=== PATIENT | female | born 1950 | race Caucasian/White ===

== ENCOUNTER 2020-06-11 15:32 | Outpatient (CLI) | payer MEDICARE, SELFPAY ==
--- NOTE | ~2020-06-11 | XR_ITS ---
EXAMINATION: XR chest 2V DATE: 06/11/2020 15:50 INDICATION: Cough. TECHNIQUE: Frontal and lateral views of the chest were obtained. COMPARISON: Chest 2 views 08/30/2019, chest CT 04/07/2018 FINDINGS: There is mild scarring at the lung apices. There is mild scarring in right middle lobe and lingula. No pleural effusion or pneumothorax. The heart size is normal. IMPRESSION: 1. Mild scarring at the lung apices and in right middle lobe and lingula. Reviewed, dictated and finalized at location B.
[2020-06-11 15:46] LABS: Basophils Absolute Auto 0.09 K/mm3 (0.00-0.10); Eosinophils Absolute Auto 1.16 K/mm3 (0.02-0.50); Eosinophils Percent Auto 12.9 % (1.0-6.0); Hematocrit 39.9 % (35.0-42.0); Hemoglobin 13.1 g/dL (11.7-13.8); Immature Granulocyte Absolute 0.02 K/mm3 (0.00-0.00); Immature Granulocyte Percent A 0.2 % (0.0-0.0); Lymphocytes Absolute Auto 2.18 K/mm3 (1.10-4.50); Lymphocytes Percent Auto 24.2 % (18.0-42.0); Mean Corpuscular HGB Conc 32.8 g/dL (32.0-36.0); Mean Corpuscular Hemoglobin 31.4 pg (27.0-31.0); Mean Corpuscular Volume 95.7 fL (78.0-102.0); Mean Platelet Volume 10.7 fl (9.2-11.8); Monocytes Absolute Auto 0.67 K/mm3 (0.10-0.90); Monocytes Percent Auto 7.5 % (2.0-11.0); Neutrophils Absolute Auto 4.9 K/mm3 (1.7-7.2); Neutrophils Percent Auto 54.2 % (50.0-70.0); Platelet Count Result 231 K/mm3 (150-420); Red Blood Count 4.17 M/mm3 (4.20-5.40)
[2020-06-11 16:02] LABS: Anion Gap 9 mmol/L (8-16); Bilirubin,Total 0.3 mg/dL (0.00-1.00); Blood Urea Nitrogen 13 mg/dL (7-18); Calcium 9.2 mg/dL (8.5-10.1); Carbon Dioxide 26 mmol/L (21-32); Chloride 105 mmol/L (98-108); Estimated Glomerular Filt Rate 50; Glucose 83 mg/dL (70-99); Osmolality Calculated 289 mOsm/kg (285-295); Potassium 4.1 mmol/L (3.5-5.1); Sodium 140 mmol/L (136-145)
[2020-06-11 16:03] LABS: Alanine Aminotransferase 19 U/L (14-59); Albumin Level 3.6 g/dL (3.4-5.0); Alkaline Phosphatase 86 U/L (46-116); Aspartate Amino Transferase 23 U/L (15-37); Total Protein 7.5 g/dL (6.4-8.2)
== END 2020-06-11 15:33 | disposition home or self-care (01) ==
LOC: CHSLAB 15:34
PROVIDERS: PCP Internal Medicine; Visit Provider Internal Medicine
DX: R05 Cough (principal)
CPT/HCPCS: 36415; 71046; 80053; 85025

== ENCOUNTER 2020-08-06 12:45 | Outpatient (CLI) | payer MEDICARE, SELFPAY ==
--- NOTE | ~2020-08-06 | MM_ITS ---
EXAMINATION: MM screening krystle BI w keron HISTORY: Screening mammogram TECHNIQUE: Craniocaudal and mediolateral oblique 3-D tomosynthesis images were obtained and synthetic 2-D images were generated. CAD analysis was submitted and interpreted. COMPARISON: 06/05/2019, 05/30/2018, 05/11/2017 bilateral digital screening mammogram examinations BREAST PARENCHYMAL COMPOSITION: There are scattered areas of fibroglandular density. FINDINGS: There is no evidence of suspicious mass, calcification, or architectural distortion to sugg est malignancy in either breast. There has been no suspicious interval change. IMPRESSION: 1. No mammographic evidence of malignancy. 2. Recommend routine screening mammography in one year. BI-RADS Category 1: Negative Reviewed, dictated and finalized at location A.
== END 2020-08-06 12:46 | disposition home or self-care (01) ==
LOC: CHSIMG 12:47
PROVIDERS: PCP Internal Medicine; Visit Provider Internal Medicine
DX: Z12.31 Encounter for screening mammogram for malignant neoplasm of breast (principal)
CPT/HCPCS: 77063; 77067

== ENCOUNTER 2020-08-18 10:01 | Outpatient (CLI) | payer MEDICARE, SELFPAY ==
[2020-08-19 20:51] LABS: SARS-CoV-2 RNA PCR Negative
== END 2020-08-18 10:02 | disposition home or self-care (01) ==
LOC: CHSLAB 10:05
PROVIDERS: PCP Internal Medicine; Visit Provider Internal Medicine
DX: R05 Cough (principal); R06.2 Wheezing; R09.89 Other specified symptoms and signs involving the circulatory and respiratory systems; Z20.828 Contact with and (suspected) exposure to other viral communicable diseases
CPT/HCPCS: 87635; C9803; U0003

== ENCOUNTER 2020-08-26 08:07 | Outpatient (CLI) | payer MEDICARE, SELFPAY ==
--- NOTE | ~2020-08-26 | CT_ITS ---
EXAMINATION: CT chest w con DATE: 08/26/2020 09:07 INDICATION: Neoplasm of lung of uncertain behavior CHRONIC COUGH AND PNEUMONIA, CHECKING FOR NEOPLASM TECHNIQUE: Computed tomography (CT) of the chest was performed with 100 mL Omnipaque-350 intravenous contrast. Additional 3D reconstructions utilizing coronal maximum intensity projection (MIP) were per formed. Automated exposure control and iterative reconstruction technique were employed. The dose-rick gth product was 123.77 mGy-cm. COMPARISON: None FINDINGS: Mild diffuse bronchiectasis scattered mucous plugging. This most severe in the right lower lobe where there is complete filling of the right lower lobar bronchus distal to the takeoff of the superior se gmental bronchus which extends into all of the basilar segmental and some of the more peripheral subs egmental bronchi in the right lower lobe. There are multiple geographic regions of linear and nodular opacities associated with focally more severe bronchiectasis, some of which are new since the prior study and some of which were present on the prior study. There are also scattered regions of less sev ere tree-in-bud opacities. No pulmonary edema, pleural effusion or pneumothorax. Heart size is normal . No pericardial effusion. Ectatic ascending thoracic aorta measuring up to 3.6 cm in maximal diamete r. Persistent mild right hilar lymphadenopathy. The largest lymph node measuring 15 x 10 mm. Visualiz ed upper abdomen is unremarkable. Severe left-sided disc height loss with degenerative endplate hernandez es at L1-L2. Mild thoracic spondylosis. IMPRESSION: 1. Diffuse bilateral lung disease characterized by bronchiectasis and scattered geographic regions of new and chronic airspace opacities and tree-in-bud opacity most consistent with acute on chronic pne umonia. There is associated scattered mucous plugging most severe in the right lower lobe right lower lobar and basilar segmental and subsegmental bronchi which spares the superior segmental bronchus. C onsider bronchoscopy to exclude an obstructing endobronchial lesion. 2. Likely reactive right hilar lymphadenopathy. Reviewed, dictated and finalized at location A. ECTIVE THERAPIST IMPRESSION: 1. Diffuse bilateral lung disease characterized by bronchiectasis and scattered geographic regions of new and chronic airspace opacities and tree-in-bud opaci ty most consistent with acute on chronic pneumonia. There is associated scatter ed mucous plugging most severe in the right lower lobe right lower lobar and ba silar segmental and subsegmental bronchi which spares the superior segmental br onchus. Consider bronchoscopy to exclude an obstructing endobronchial lesion. 2. Likely reactive right hilar lymphadenopathy.
[2020-08-26 08:31] LABS: Estimated Glomerular Filt Rate 59
== END 2020-08-26 08:08 | disposition home or self-care (01) ==
LOC: CHSIMG 08:09
PROVIDERS: PCP Internal Medicine; Visit Provider Internal Medicine
DX: D38.1 Neoplasm of uncertain behavior of trachea, bronchus and lung (principal)
CPT/HCPCS: 36415; 71260; 82565; Q9965

== ENCOUNTER 2020-09-09 12:29 | Outpatient (CLI) | payer MEDICARE, SELFPAY ==
--- NOTE | ~2020-09-09 | XR_ITS ---
XR chest 2V 09/09/2020 13:07 Indication: Shortness of breath. Pneumonia. Procedure: 2 view chest Comparison: Comparison to multiple prior studies sequentially, with oldest reviewed study dated 05/2019. Findings: Chronic infiltrates of the mid and lower lung zones bilaterally. Heart size normal. No ariella a, pleural effusion or pneumothorax. The lungs are hyperinflated which is consistent with, but not di agnostic of chronic obstructive pulmonary disease. Impression: 1: Chronic infiltrates of the mid and lower lung zones bilaterally, suspicious for chronic atypical p neumonia versus fibrosis/scarring. Reviewed, dictated and finalized at location A. [employer]ING PROFESSIONALS Impression: 1: Chronic infiltrates of the mid and lower lung zones bilaterally, suspicious for chronic atypical pneumonia versus fibrosis/scarring.
== END 2020-09-09 12:30 | disposition home or self-care (01) ==
PROVIDERS: PCP Internal Medicine; Visit Provider Internal Medicine Pulmonary Disease
DX: J44.9 Chronic obstructive pulmonary disease, unspecified (principal)
CPT/HCPCS: 71046

== ENCOUNTER 2020-09-22 07:17 | Outpatient (CLI) | payer MEDICARE, SELFPAY ==
[2020-09-22 11:39] LABS: SARS-CoV-2 Ag Negative (Negative)
== END 2020-09-22 07:18 | disposition home or self-care (01) ==
LOC: CHSLAB 07:22
PROVIDERS: PCP Internal Medicine; Visit Provider Internal Medicine Pulmonary Disease
DX: Z20.828 Contact with and (suspected) exposure to other viral communicable diseases (principal); Z01.818 Encounter for other preprocedural examination
CPT/HCPCS: 87426

== ENCOUNTER 2020-10-13 12:28 | Outpatient (CLI) | payer MEDICARE, SELFPAY ==
[2020-10-16 06:37] LABS: NIL 0.01 IU/mL; Quantiferon TB Plus, 1T NEGATIVE
== END 2020-10-13 12:29 | disposition home or self-care (01) ==
LOC: CHSLAB 12:31
PROVIDERS: PCP Internal Medicine; Visit Provider Internal Medicine Pulmonary Disease
DX: R89.9 Unspecified abnormal finding in specimens from other organs, systems and tissues (principal)
CPT/HCPCS: 36415; 86480

== ENCOUNTER 2020-12-05 07:50 | Outpatient (CLI) | payer MEDICARE, SELFPAY ==
--- NOTE | ~2020-12-05 | US_ITS ---
US right upper quadrant INDICATION: Right upper quadrant pain PROCEDURE: Realtime right upper abdominal ultrasound. COMPARISON: No prior studies for comparison. FINDINGS: The pancreas is normal without focal mass or pancreatic ductal dilation. Liver echotexture is normal without focal mass or intrahepatic biliary dilatation. There is normal directional flow i n the portal vein. The gallbladder is normal without stones, gallbladder wall thickening or pericholecystic fluid. Comm on bile duct measures 5.5 mm. No sonographic Bustamante's sign. IMPRESSION: 1: Normal limited abdominal ultrasound. Reviewed, dictated and finalized at location A. 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
== END 2020-12-05 07:51 | disposition home or self-care (01) ==
LOC: CHSIMG 07:51
PROVIDERS: PCP Internal Medicine; Visit Provider Internal Medicine
DX: R10.11 Right upper quadrant pain (principal)
CPT/HCPCS: 76705

== ENCOUNTER 2021-03-09 12:45 | Outpatient (CLI) | payer MEDICARE, SELFPAY ==
--- NOTE | ~2021-03-09 | CT_ITS ---
EXAMINATION:CT diagnostic chest wo con DATE: 03/09/2021 13:33 INDICATION: Pulmonary nodule. TECHNIQUE: Computed tomography (CT) of the chest was performed without intravenous contrast. Automate d exposure control and iterative reconstruction technique were employed. The dose-length product (DLP ) was 128.42 mGy-cm. COMPARISON: Chest CT 08/26/2020, 04/07/2018 FINDINGS: There is symmetric scarring at the lung apices. There is bronchiectasis in the lungs with a lower lung predominance. There are centrilobular nodules and tree-in-bud opacities in clusters invol ving all lobes with a lower lung predominance. There are some airspace and groundglass opacities asso ciated with nodules. No pleural effusion. The heart size is normal. No pericardial effusion. There is chronic mild right hilar lymphadenopathy, likely reactive. There is mild thoracic spondylosis and se mignon lumbar spondylosis. IMPRESSION: 1. Diffuse lung disease with worsening in right upper lobe and improvement in right lower lobe, consi stent with chronic pneumonia such as mycobacterium avium intracellulare (PENNIE). 2. Chronic mild right hilar lymphadenopathy, likely reactive. Reviewed, dictated and finalized at location B. IMPRESSION: 1. Diffuse lung disease with worsening in right upper lobe and improvement in r ight lower lobe, consistent with chronic pneumonia such as mycobacterium avium intracellulare (PENNIE). 2. Chronic mild right hilar lymphadenopathy, likely reactive.
== END 2021-03-09 12:46 | disposition home or self-care (01) ==
LOC: CHSIMG 12:46
PROVIDERS: PCP Internal Medicine; Visit Provider Internal Medicine Pulmonary Disease
DX: R91.8 Other nonspecific abnormal finding of lung field (principal)
CPT/HCPCS: 71250

== ENCOUNTER 2021-07-08 12:18 | Outpatient (CLI) | payer MEDICARE, SELFPAY ==
--- NOTE | ~2021-07-08 | DEXA_ITS ---
Bone Density Report Name: Dawn Burgess Age: 70 Sex: Female Ethnicity: White Date of : 1950 Indication: osteopenia; height loss; asthma or emphysema; Referring Provider: Bella Swain Study: Bone densitometry was performed. Exam Date: July 08, 2021 Accession number: [id number] Bone Density: Region BMD T-score Z-score Classification AP Spine(L1-L4) 0.953 -0.9 1.4 Normal Femoral Neck (Left) 0.633 -1.9 0.0 Osteopenia Total Hip (Left) 0.660 -2.3 -0.7 Osteopenia Femoral Neck (Right) 0.594 -2.3 -0.4 Osteopenia Total Hip (Right) 0.686 -2.1 -0.5 Osteopenia Femoral Neck Mean 0.613 -2.1 -0.2 Osteopenia Total Hip Mean 0.673 -2.2 -0.6 Osteopenia World Health Organization criteria for BMD impression classify patients as: Normal (T-score at or above -1.0), Osteopenia (T-score between -1.0 and -2.5), or Osteoporosis (T-score at or below -2.5). 10-year Fracture Risk(1): Major Osteoporotic Fracture 12% Hip Fracture 3.2% Reported Risk Factors: [place] (), Neck BMD=0.594, BMI=20.2 (1) FRAX(R) Version 3.08. Fracture probability calculated for an untreated patient. Fracture probability may be lower if the patient has received treatment. Previous Exams: Region Exam Age BMD T-score BMD Change BMD Change Date g/cm2 vs Baseline vs Previous AP Spine (L1-L4) 07/08/2021 70 0.953 -0.9 -0.076 (-7.4%) -0.002 (-0.2%) 06/05/2019 68 0.955 -0.8 -0.074 (-7.2%) -0.009 (-1.0%) 09/28/2012 61 0.964 -0.8 -0.065 (-6.3%) -0.065 (-6.3%) 04/17/2010 59 1.029 -0.2 Total Hip(Left) 07/08/2021 70 0.660 -2.3 -0.105 (-13.8% -0.011 (-1.6%) 06/05/2019 68 0.670 -2.2 -0.095 (-12.4% -0.056 (-7.7%) 09/28/2012 61 0.726 -1.8 -0.039 (-5.1%) -0.039 (-5.1%) 04/17/2010 59 0.765 -1.4 Total Hip(Right) 07/08/2021 70 0.686 -2.1 -0.133 (-16.2% -0.010 (-1.5%) 06/05/2019 68 0.696 -2.0 -0.122 (-14.9% -0.097 (-12.2% 09/28/2012 61 0.793 -1.2 -0.025 (-3.1%) -0.025 (-3.1%) 04/17/2010 59 0.818 -1.0 *Denotes significance at 95% confidence level, LSC for AP Spine = 0.022 g/cm2, LSC for Total Hip = 0.027 g/cm2 # Denotes dissimilar scan types or analysis methods Clinical Information Provided by Patient: Has used the following medications: Vitamin D Has the following medical conditions: Asthma or Emphysema Patient maximum height was 65 No regular weight bearing exercise Does not regularly consume dairy products Drinks caffeinated beverages Onset of m
== END 2021-07-08 12:19 | disposition home or self-care (01) ==
LOC: CHSIMG 12:19
PROVIDERS: PCP Internal Medicine; Visit Provider Internal Medicine
DX: M81.0 Age-related osteoporosis without current pathological fracture (principal)
CPT/HCPCS: 77080

== ENCOUNTER 2021-08-07 12:49 | Outpatient (CLI) | payer MEDICARE, SELFPAY ==
--- NOTE | ~2021-08-07 | MM_ITS ---
EXAMINATION: MM screening krystle BI w keron HISTORY: Screening mammogram TECHNIQUE: Craniocaudal and mediolateral oblique 3-D tomosynthesis images were obtained and synthetic 2-D images were generated. CAD analysis was submitted and interpreted. COMPARISON: 08/06/2020, 06/05/2019, bilateral digital screening mammogram examinations BREAST PARENCHYMAL COMPOSITION: There are scattered areas of fibroglandular density. FINDINGS: There is no evidence of suspicious mass, calcification, or architectural distortion to sugg est malignancy in either breast. There has been no suspicious interval change. IMPRESSION: 1. No mammographic evidence of malignancy. 2. Recommend routine screening mammography in one year. BI-RADS Category 1: Negative Reviewed, dictated and finalized at location A.
== END 2021-08-07 12:50 | disposition home or self-care (01) ==
LOC: CHSIMG 12:50
PROVIDERS: PCP Internal Medicine; Visit Provider Internal Medicine
DX: Z12.31 Encounter for screening mammogram for malignant neoplasm of breast (principal)
CPT/HCPCS: 77063; 77067

== ENCOUNTER 2021-08-18 12:47 | Outpatient (CLI) | payer MEDICARE, SELFPAY ==
[2021-08-18] MEDS: ZOLEDRONIC ACID 5 MG/100 ML 100 ML 400 MG IVPB (13:05)
[2021-08-18 13:10] VITALS: BMI 19.4
[2021-08-18 13:11] VITALS: BP 129/67; PULSE 72; RESP 14; TEMP 36.6; O2SAT 98
--- NOTE | 2021-08-18 13:27 | PC.NURSE ---
Patient here for IV yearly Reclast infusion. Education given on medication. No concerns voices. Reclast IV infusion administered. SEE MAR Tolerated well. Safe exit of hospital.
== END 2021-08-18 12:48 | disposition home or self-care (01) ==
LOC: CHSTREATRM 12:49
PROVIDERS: PCP Internal Medicine; Visit Provider Internal Medicine
DX: M81.0 Age-related osteoporosis without current pathological fracture (principal)
CPT/HCPCS: 96365; J3489

== ENCOUNTER 2021-09-21 13:27 | Outpatient (CLI) | payer MEDICARE, SELFPAY ==
--- NOTE | ~2021-09-21 | CT_ITS ---
EXAMINATION: CT diagnostic chest wo con DATE: 09/21/2021 13:57 INDICATION: Abnormal finding of lung field hx chest nodules f/u, compare to CT chest 03/09/21 TECHNIQUE: Computed tomography (CT) of the chest was performed without intravenous contrast. Addition al 3D reconstructions utilizing coronal maximum intensity projection (MIP) were performed. Automated exposure control and iterative reconstruction technique were employed. The dose-length product was 12 9.75 mGy-cm. COMPARISON: 03/09/2021 FINDINGS: Symmetric moderate biapical pleural-parenchymal scarring. Unchanged diffuse mild bronchiectasis. Agai n seen are geographic regions of centrilobular nodules scattered throughout both lungs with lower alice g predominance. Some regions have improved most prominent on the right upper lobe and some have worse nila since the prior study study particularly in the right middle and lower lobes. Regions in the ling mary and left lower lobe are minimally changed. Heart size is normal. No pericardial effusion. Thoraci c aorta is normal in caliber. No pathologically enlarged thoracic lymphadenopathy. Calcified nodule i n the right hepatic lobe consistent with old granulomatous disease. Mild lumbar dextrocurvature with severe left-sided disc height loss at L1-L2. IMPRESSION: 1. Continued evolving pattern of patchy bilateral lung disease with bronchiectasis and regions of wor sening and improving tree-in-bud opacities consistent with chronic pneumonia such as Mycobacterium av ium intracellulare (PENNIE). Reviewed, dictated and finalized at location B. 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 Continued evolving pattern of patchy bilateral lung disease with bronchiecta sis and regions of worsening and improving tree-in-bud opacities consistent wit h chronic pneumonia such as Mycobacterium avium intracellulare (PENNIE).
== END 2021-09-21 13:28 | disposition home or self-care (01) ==
LOC: CHSIMG 13:28
PROVIDERS: PCP Internal Medicine; Visit Provider Internal Medicine Pulmonary Disease
DX: R91.8 Other nonspecific abnormal finding of lung field (principal)
CPT/HCPCS: 71250

== ENCOUNTER 2021-10-12 10:50 | Emergency (ER) | payer MEDICARE, SELFPAY ==
--- NOTE | ~2021-10-12 | US_ITS ---
EXAMINATION: US pelvic complete DATE: 10/12/2021 11:45 INDICATION: Vaginal bleeding TECHNIQUE: Multiple transabdominal and endovaginal sonographic images of the pelvis were obtained. COMPARISON: None. FINDINGS: The uterus measures 7.2 x 2.9 x 4.4 cm. The endometrial complex measures approximately 6 mm in thick ness exclusive of an additional 10 mm thick anechoic fluid collection within the uterine fundus. The right ovary is not visualized. The left ovary measures 2.2 x 0.8 x 0.6 cm. Lesser flow with arterial waveforms identified in the left ovary. There is no free fluid in the pelvis. IMPRESSION: 1. Mild thickening of the endometrial complex which measures approximately 6 mm along with small amou nt of anechoic fluid within the endometrial canal. Differential includes endometrial hyperplasia or c arcinoma. Consider hysteroscopy with biopsy for further evaluation. Reviewed, dictated and finalized at location H. 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 Mild thickening of the endometrial complex which measures approximately 6 mm along with small amount of anechoic fluid within the endometrial canal. Differ ential includes endometrial hyperplasia or carcinoma. Consider hysteroscopy wit h biopsy for further evaluation.
[2021-10-12 11:10] VITALS: BP 175/76; PULSE 78; RESP 16; TEMP 36.3; O2SAT 98
--- NOTE | 2021-10-12 11:23 | ED.GENADULT ---
HPI - General Adult General Chief complaint: Vaginal Bleeding Stated complaint: vaginal bleeding Source: patient Mode of arrival: ambulatory Limitations: no limitations History of Present Illness HPI narrative: Dawn is a 70F with a PMH of asthma that presented to the ED with vaginal bleeding. She went through menopause 20 years ago and had one episode of bleeding a few weeks ago that self resolved. After this she had a pap that was normal. However, she noticed bleeding today and has went through 4 pads in a few hours with clots. She has also had a lot of discharge. Related Data Home Medications Medication Instructions Recorded Confirmed fluticasone propionate [Flovent 1 puff INHALATION Q12H 08/18/21 08/18/21 HFA] levalbuterol tartrate 1 puff INHALATION Q6H PRN 08/18/21 08/18/21 Allergies Allergy/AdvReac Type Severity Reaction Status Date / Time No Known Allergies Allergy Mild Verified 10/12/21 11:18 Review of Systems Constitutional: Constitutional: Reports no additional constitutional complaints Eyes: Eyes: Reports no additional eye complaints ENT: Reports system reviewed and no additional complaints, except as documented Cardiovascular: Cardiovascular: Reports no additional cardiovascular complaints Respiratory: Respiratory: Reports no additional respiratory complaints Gastrointestinal: Gastrointestinal: Reports no additional gastrointestinal complaints Genitourinary: Genitourinary: Reports as per HPI Musculoskeletal: Musculoskeletal: Reports no additional musculoskeletal complaints Integumentary/Breasts: Skin/Breast: Reports system reviewed and no additional complaints, except as docu Neurologic: Reports system reviewed and no additional complaints, except as documented Psychiatric: Psychiatric: Reports no additional psychiatric complaints Endocrine: Endocrine: Reports no additional endocrine complaints Hematologic/Lymphatic: Hematologic/Lymphatic: Reports no additional hematologic/lymphatic complaints Allergic/Immunologic: Allergic/Immunologic: Reports no additional allergic/immunologic complaints [facility] Family History Family History Father Hypertension Family history of coronary artery disease Other Cerebrovascular accident Family history of allergic disorder Family history of cardiovascular disease Family history of malignant neoplasm Social History Social History Smoking status: Never smoker Alcohol intake: never Exam Const: General: no acute distress and alert Orientation/consciousness: patient oriented x3 Limitations: No altered mental status HENMT: Head: normal to inspection Other: normocephalic, atraumatic Eyes: Conjunctivae: conjunctivae normal Pupils: Equal, round and reactive pupils present Neck: Neck: normal visual inspection Chest: Chest palpation & inspection: normal inspection of the chest Resp: Effort & Inspection: normal respiratory effort Auscultation: clear to auscultation bilaterally Cardio: Rate: regular rate GI: Inspection: non-distended GI Palp: Yes Soft to palpation, No Tenderness to palpation present (GI) and No Guarding due to palpation present (GI) : General: Yes no CVA tenderness Skin: General skin exam: normal color Rashes: no rashes Neuro: General: patient oriented x3 and moves all extremities Extrem: General: normal to inspection Psych: Mental Status: mental status grossly normal Course Course Emergency Course: Ordered labs and US. Labs largely unremarkable. EXAMINATION: US pelvic complete DATE: 10/12/2021 11:45 INDICATION: Vaginal bleeding TECHNIQUE: Multiple transabdominal and endovaginal sonographic images of the pelvis were obtained. COMPARISON: None. FINDINGS: The uterus measures 7.2 x 2.9 x 4.4 cm. The endometrial complex measures approximately 6 mm in thickness exclusive of an additional 10
[2021-10-12 11:40] LABS: Basophils Absolute Auto 0.08 K/mm3 (0.00-0.10); Basophils Percent Auto 0.8 % (0.0-1.0); Eosinophils Absolute Auto 0.73 K/mm3 (0.02-0.50); Eosinophils Percent Auto 7.4 % (1.0-6.0); Hematocrit 40.7 % (35.0-42.0); Hemoglobin 13.4 g/dL (11.7-13.8); Immature Granulocyte Absolute 0.03 K/mm3 (0.00-0.00); Immature Granulocyte Percent A 0.3 % (0.0-0.0); Lymphocytes Absolute Auto 1.64 K/mm3 (1.10-4.50); Lymphocytes Percent Auto 16.7 % (18.0-42.0); Mean Corpuscular HGB Conc 32.9 g/dL (32.0-36.0); Mean Corpuscular Hemoglobin 31.7 pg (27.0-31.0); Mean Corpuscular Volume 96.2 fL (78.0-102.0); Mean Platelet Volume 10.3 fl (9.2-11.8); Monocytes Absolute Auto 0.62 K/mm3 (0.10-0.90); Monocytes Percent Auto 6.3 % (2.0-11.0); Neutrophils Absolute Auto 6.7 K/mm3 (1.7-7.2); Neutrophils Percent Auto 68.5 % (50.0-70.0); Platelet Count Result 254 K/mm3 (150-420); Red Blood Count 4.23 M/mm3 (4.20-5.40); White Blood Count 9.8 K/mm3 (4.8-10.8)
[2021-10-12 11:40] LABS: Add Urine Microscopic? YES; Appearance Urine Clear (Clear); Bilirubin Urine Negative (Negative); Blood Urine 3+ (Negative); Color Urine Light Yellow (Yellow); Glucose Urine UA Negative (Negative); Ketones Urine Negative (Negative); Leukocyte Esterase Ur 2+ (Negative); Nitrate Urine Negative (Negative); Protein Urine Negative (Negative); Specific Grav Ur <= 1.005 (1.010-1.020); Urobilinogen Urine 0.2 mg/dL (0.2-1.0)
[2021-10-12 11:45] LABS: Bacteria Urine Trace /hpf; Squamous Epithelial Cell Urine Few /hpf (Few)
[2021-10-12 11:53] LABS: Prothrombin Time 10.6 Seconds (9.50-12.10)
[2021-10-12 11:55] LABS: Alanine Aminotransferase 27 U/L (14-59); Albumin Level 3.5 g/dL (3.4-5.0); Alkaline Phosphatase 87 U/L (46-116); Anion Gap 9 mmol/L (8-16); Aspartate Amino Transferase 23 U/L (15-37); Bilirubin,Total 0.3 mg/dL (0.00-1.00); Blood Urea Nitrogen 13 mg/dL (7-18); Calcium 8.9 mg/dL (8.5-10.1); Carbon Dioxide 25 mmol/L (21-32); Chloride 106 mmol/L (98-108); Estimated CRCL calculation 43 ml/min; Estimated Glomerular Filt Rate > 60; Glucose 98 mg/dL (70-99); Osmolality Calculated 290 mOsm/kg (285-295); Potassium 3.6 mmol/L (3.5-5.1); Sodium 140 mmol/L (136-145); Total Protein 7.3 g/dL (6.4-8.2)
[2021-10-12 12:24] VITALS: BP 115/72; PULSE 62; RESP 16; TEMP 36.9; O2SAT 98
== END 2021-10-12 12:26 | disposition home or self-care (01) ==
PROVIDERS: Emergency Provider Family Medicine; PCP Internal Medicine
DX: N93.8 Other specified abnormal uterine and vaginal bleeding (principal)
CPT/HCPCS: 36415; 76856; 80053; 81001; 85025; 85610; 99282; 99284

== ENCOUNTER 2021-11-27 03:00 | Day surgery (SDC) | payer MEDICARE, SELFPAY ==
[2021-11-18 15:01] VITALS: BMI 19.3
--- NOTE | 2021-11-18 15:17 | PC.NURSE ---
Report to the Outpatient Waiting Room, entrance under the green pavilion located off [facility], at time __8:30AM on date __11/27/21 . OR Time: __10:30AM . - You will be asked a series of questions to screen for COVID 19 for your protection. - A mask is required within the hospital. - No visitors are allowed at this time. Preoperative COVID Testing Requirements: No COVID Test needed if: (proof is required; if not received patient will have Rapid Test prior to entry) - Patient has received COVID Vaccine at least 14 days prior to procedure date or - Patient has positive COVID test result within last 90 days of surgery date. COVID Test needed if above criteria is not met If not COVID vaccinated a COVID test must be conducted within 72 hours of surgery and patient is asked to isolate self from time of testing until procedure. You will go to the [facility] for your COVID testing. The [facility] is located at the corner of [address] [facility]. You will only be called if COVID results are positive and your surgeon may reschedule your elective surgery date. Patients may have clear liquids (water, carbonated beverages, clear teas, apple juice) until 3 hours prior to surgery with a maximum of 20 ounces. - No food from midnight until time of surgery - Infants may have breast milk until 4 hours before surgery, infant formula 6 hours prior to surgery. - Children will be allowed to drink immediately following surgery. If applicable, please bring a bottle or sippy cup to assist with drinking. Juice, water, soda, and popsicles are readily available. For infants on formula, please bring formula the day of surgery. Pacifiers are allowed. Take the following medications with a SIP of water the morning of surgery: ____ADVAIR INHALER, XOPENEX INHALER NEEDED Medications to discontinue per physician ALL VITAMINS/SUPPLEMENTS 3 DAYS PRE-OP Date to take last dose____11/24/21 Please no make-up, nail indonesian, hairspray, perfume, deodorant, or body powder the day of surgery. No jewelry (including any body piercings) or valuables the day of surgery, leave them at home. Please take a shower or bath the night before, or the morning of, surgery with an antibacterial soap. Wear comfortable, loose fitting clothing. Children are encouraged to wear pajamas. - Jewelry must be removed prior to entering the operating room. Rings and piercings that are not removed may be cut off. - The hospital will not accept responsibility for valuables. - Please leave all valuables, including medications, at home the day of surgery. If you are going home after surgery, a licensed tanker driver must drive you home. - NO public transportation without another adult. - We recommend that an adult stay with you for 24 hours following discharge. - We also recommend that you do not drive, make important decision, drink alcoholic beverages, or take any drugs that were not prescribed by your health care provider for at least 24 hours after your discharge time. For Pediatric surgeries, we recommend two adults accompany the child home (only one inside the building at this time). Follow any additional instructions given to you from your surgeon. Telephone instructions given to ___PATIENT and asked if any additional questions and then verbalized understanding. Patient advised to call surgeon office or pre surgery nurse liaison [phone] if any additional questions.
--- NOTE | 2021-11-26 16:18 | P.PNOB_ITS ---
OB - PN: Subj Subjective Date/time seen: 11/26/21 16:18 Patient presents to gynecology office for evaluation of postmenopausal bleeding. Menopause was approximately 22 years ago at age 48. Patient denies any issues since then. In August 2021, patient reported onset of vaginal spotting. She presented to PCP who performed a Pap smear. Patient states the Pap smear results were within normal limits. Spotting seemed to have resolved for approximately 1 month and then recurred at end of September 2021. Patient reported experiencing a nasty discharge for few days that was mixed with spotting. Discharge resolved, however, spotting persisted for a few days afterwards. Patient was advised to seek care in the emergency department where a pelvic ultrasound was performed showing a thickened endometrium. Patient states that spotting resolved that same evening and she has not noticed any further spotting since then. Patient denies any pelvic pain or cramping. Patient does use a pessary and reports occasional irritation with pessary, however, has not experienced any spotting or bleeding similar to what she has since August. 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 Last mammogram in 07/2021 was WNL. OB - PN A/P Time Spent With Patient Time: Total time spent is greater than 50% in coordination of care (as documented) at patient's floor/unit and/or counseling patient:
--- NOTE | 2021-11-26 16:18 | PM.IMHP ---
H&P: HPI History of Present Illness Date/Time: 11/26/21 16:19 Patient is a 71 year old woman with history of postmenopausal bleeding. In August 2021, patient reported onset of vaginal spotting. Spotting seemed to have resolved for approximately 1 month and then recurred at end of September 2021. Patient reported experiencing a nasty discharge for few days that was mixed with spotting. Discharge resolved, however, spotting persisted for a few days afterwards. Patient sought care in the emergency department where a pelvic ultrasound was performed showing a thickened endometrium. Patient states that spotting resolved that same evening and she has not noticed any further spotting since then. Patient denies any pelvic pain or cramping. Patient was offered, however, declined in office endometrial biopsy. In general, she reports feeling well today. Chief Complaint: postmenopausal bleeding thickened endometrium Review of Systems Review of Systems: All systems reviewed & are unremarkable except as noted in HPI and below Constitutional: Constitutional: Reports as per HPI, Reports no additional constitutional complaints, Denies chills, Denies fever(s), Denies headache(s) and Denies night sweats Eyes: Eyes: Reports as per HPI and Reports no additional eye complaints ENT: Reports system reviewed and no additional complaints, except as documented, Reports as per HPI, Reports Normal hearing present and Denies headache(s) Cardiovascular: Cardiovascular: Reports as per HPI, Reports no additional cardiovascular complaints, Denies chest pain and Denies dyspnea Respiratory: Respiratory: Reports as per HPI, Reports no additional respiratory complaints, Denies cough and Denies dyspnea Gastrointestinal: Gastrointestinal: Reports as per HPI, Reports no additional gastrointestinal complaints, Denies abdominal pain, Denies change in bowel habits, Denies change in stool character, Denies nausea and Denies vomiting Genitourinary: Genitourinary: Reports no additional female genitourinary complaints, Reports as per HPI, Denies abnormal vaginal bleeding, Denies genital lesions, Denies hot flashes, Denies dyspareunia, Denies pelvic pain, Denies sexual dysfunction, Denies urinary incontinence, Denies vaginal discharge, Denies vaginal dryness and Denies vaginal odor Musculoskeletal: Musculoskeletal: Reports no additional musculoskeletal complaints and Reports as per HPI Integumentary/Breasts: Skin/Breast: Reports system reviewed and no additional complaints, except as docu, Reports as per HPI, Denies breast pain and Denies nipple discharge Neurologic: Reports system reviewed and no additional complaints, except as documented, Reports as per HPI, Reports Normal hearing present and Denies headache(s) Psychiatric: Psychiatric: Reports no additional psychiatric complaints, Reports as per HPI, Denies anxiety and Denies depression Endocrine: Endocrine: Reports no additional endocrine complaints and Reports as per HPI Hematologic/Lymphatic: Hematologic/Lymphatic: Reports no additional hematologic/lymphatic complaints and Reports as per HPI Allergic/Immunologic: Allergic/Immunologic: Reports no additional allergic/immunologic complaints and Reports as per HPI PMFSH Past Medical History Medical History Age related osteoporosis Arthritis Asthma Bronchiectasis Chronic GERD History of vaginal delivery x 2 Surgical History Surgical History H/O hernia repair History of dilation and curettage [place] teeth removed Family History Family History Father Hypertension Family history of coronary artery disease Mother Asthma Hypertension Heart disease Cerebrovascular accident Sibling Asthma Other Family history of allergic disorder Family history of cardiovascular disease Family history of malignant neoplasm
[2021-11-27] MEDS: ACETAMINOPHEN 500 MG TABLET 1000 MG PO (08:55)
[2021-11-27] MEDS: LACTATED RINGERS 1,000 ML 30 ML IV CONT (09:12)
[2021-11-27 09:16] VITALS: BP 116/64; PULSE 72; RESP 16; TEMP 37.1; O2SAT 99
--- NOTE | 2021-11-27 09:29 | WPDHPUPDATE1 ---
History and Physical Update Update Date/Time: 11/27/21 09:29 History and Physical has been reviewed, including an updated exam of the patient. There are NO changes in the patient's condition. Risks, benefits, and alternatives have been discussed and questions answered. Patient agrees to proceed with procedure.
--- NOTE | 2021-11-27 09:32 | WPDANESEPPF ---
Anes - Initial Pre Proc Eval Procedure: Operation Date: 11/27/21 10:30 Proposed Procedures p Hysteroscopy, Dilation and Curettage, Possible Myosure - Holley Johnson MD Date/Time: 11/27/21 09:32 Surgeon: Holley Johnson MD Pre Op Diagnosis: post menopausal bleeding Patient Data Age: 71 Gender: F Height: 1.64 m Weight: 51.8 kg Last Vital Signs Temp 98.7 F 11/27/21 09:16 Pulse 72 11/27/21 09:16 Resp 16 11/27/21 09:16 BP 116/64 11/27/21 09:16 Pulse Ox 99 11/27/21 09:16 Allergies Allergy/AdvReac Type Severity Reaction Status Date / Time No Known Allergies Allergy Mild Verified 11/27/21 08:52 Home Medications Medication Instructions Recorded Confirmed Type calcium carbonate 200 mg calcium 200 mg PO TID PRN 11/04/21 11/27/21 History (500 mg) chewable tablet cholecalciferol (vitamin D3) 125 125 mcg PO DAILY 11/04/21 11/27/21 History mcg (5,000 unit) capsule fluticasone 500 mcg-salmeterol 50 1 inh INHALATION Q12H 11/04/21 11/27/21 History mcg/dose blistr powdr for inhalation ibuprofen 200 mg tablet 400 mg PO Q6H PRN 11/04/21 11/27/21 History levalbuterol tartrate 45 1 puff INHALATION Q6H PRN 11/04/21 11/27/21 History mcg/actuation aerosol inhaler Patient hx anesthesia problems: post op nausea/vomiting Family hx anesthesia problems: none Results Review: All pre-operative results and documents have been reviewed as part of the pre-operative evaluation. [facility] Past Medical History Medical History Age related osteoporosis Arthritis Asthma Bronchiectasis Chronic GERD History of vaginal delivery x 2 Surgical History Surgical History H/O hernia repair History of dilation and curettage [place] teeth removed Family History Family History Father Hypertension Family history of coronary artery disease Mother Asthma Hypertension Heart disease Cerebrovascular accident Sibling Asthma Other Family history of allergic disorder Family history of cardiovascular disease Family history of malignant neoplasm Social History Social History Smoking status: Never smoker Alcohol intake: never Substance use: never Living arrangements: with family Additional living arrangements comments: SON Spiritual care concerns: No Anes - Eval Final PreProcedure Day of Procedure 11/27/21 09:32 Patient weight: normal Heart: regular rate and rhythm Lungs: clear to auscultation Airway: Mallampati scale class II Neurological: alert and oriented Last oral intake: >/= 8 hours ASA classification: II Emergent: no Anesthetic plan: proceed Anesthesia type and monitoring: general GIVS and standard monitoring Results Review: All pre-operative results and documents have been reviewed as part of the pre-operative evaluation. Informed Consent: The patient's anesthetic plan and its attendant risks and benefits were discussed with the patient/family/POA. Questions were solicited and answers provided to the satisfaction of the patient/family/POA.
[2021-11-27 10:21] VITALS: BP 115/64; PULSE 97; RESP 12; O2SAT 100
[2021-11-27 10:36] VITALS: BP 114/65; PULSE 75; RESP 14; O2SAT 98
[2021-11-27 11:06] VITALS: BP 139/71; PULSE 63; RESP 14; O2SAT 97
[2021-11-27 11:30] VITALS: BP 140/69; PULSE 63; RESP 14; O2SAT 97
--- NOTE | 2021-11-27 11:43 | P.OP_ITS ---
Procedure Note - Detailed Date of Procedure 11/27/21 Pre-op Diagnosis post menopausal bleeding Post-op Diagnosis same Procedure Performed Hysteroscopy Dilation and curettage Surgeon Holley Johnson MD Anesthesia MAC Findings approx. 3-5 cc thick yellow purulent material drained from cervical os during cervical dilation; otherwise, grossly normal appearing endometrial cavity with minimal tissue noted; bilateral tubal ostial visualized Description of Procedure The patient was taken to the operating room where she self-transferred to the operating room table. Patient was placed in the dorsal supine position. Anesthesia was administered and found to be adequate. The patient was repositioned in the dorsal lithotomy position with the use of Jarvis stirrups. She was prepped and draped in the usual sterile fashion. A red rubber catheter was used to drain the bladder of 100 cc of yellow urine. A bivalve speculum was inserted into the vagina. The cervix was visualized and the anterior lip of the cervix was grasped with a single-tooth tenaculum. A paracervical block with 1% plain lidocaine was performed. 5 cc of lidocaine was administered on either side. The cervix was serially dilated to accommodate a hysteroscope. Immediately upon entry into the endocervical canal with the dilators, approx. 3- 5cc of thick yellow purulent material drained. A sponge stick was used to cleanse vagina. The hysteroscope was then advanced into the endometrial cavity. Fluid through the hysteroscope was circulated to enhance visualization and evacuate remaining purulent material. A general survey was performed. The endometrial cavity appeared grossly normal, pale, and atrophic. Minimal tissue was noted. Bilateral tubal ostia were visualized. A few pictures were taken. The hysteroscope was removed. A medium sized rigid curette was then introduced into the endometrial cavity. All quadrants of the uterus were explored and a minimal amount of tissue was obtained. The specimen was prepared to be sent to pathology for analysis. The tenaculum was removed. Minimal oozing was noted from one of the tenaculum puncture sites. This site was made hemostatic with silver nitrate. The vagina was cleansed and dried. The speculum was removed. The remainder of the patient was also cleansed and dried. She was taken out of the dorsal lithotomy position and awakened from anesthesia without difficulty. She was transferred to the recovery room in stable condition. All sponge, lap, instrument counts were correct at end of the procedure. Estimated Blood Loss -5.0 IV Fluids 600 (hysteroscopic fluid: 800cc in/700cc out) Urine Output -100.0 Drains No Packing No Pathology yes (endometrial curettings) Complications No immediate complications Condition stable Disposition same day
== END 2021-11-27 12:19 | disposition home or self-care (01) ==
PROVIDERS: PCP Internal Medicine; Visit Provider Student in an Organized Health Care Education/Training Program
PROC: 0U5B8ZZ Destruction of Endometrium, Via Natural or Artificial Opening Endoscopic (ICD-10-PCS; CPT 58563; principal; 2021-11-27 10:30)
DX: N95.0 Postmenopausal bleeding (principal); N71.9 Inflammatory disease of uterus, unspecified; M81.0 Age-related osteoporosis without current pathological fracture; J45.909 Unspecified asthma, uncomplicated; K21.9 Gastro-esophageal reflux disease without esophagitis
CPT/HCPCS: 58558; 88305; A9270; J1100; J1885; J2250; J2405; J2704; J3010; J7030; J7120

== ENCOUNTER 2022-03-30 13:15 | Outpatient (CLI) | payer MEDICARE, SELFPAY ==
--- NOTE | ~2022-03-30 | CT_ITS ---
EXAMINATION:CT diagnostic chest wo con DATE: 03/30/2022 13:32 INDICATION: Pulmonary nodule. TECHNIQUE: Computed tomography (CT) of the chest was performed without intravenous contrast. Automate d exposure control and iterative reconstruction technique were employed. The dose-length product (DLP ) was 124.88 mGy-cm. COMPARISON: Chest CT 09/21/2021, 03/09/2021, 08/26/2020 FINDINGS: There is stable scarring at the lung apices. Again seen are tree-in-bud opacities in bailiff ior segment right upper lobe. Again seen is bronchiectasis in the lungs with an inferior and anterior predominance. Again seen are airspace opacities with volume loss in anterior segment right upper lob e, right middle lobe, and lingula, consistent with atelectasis and scarring. There are peripheral mil d groundglass and airspace opacities and centrilobular nodules in the basilar lower lobes. There are tree-in-bud opacities in right lower lobe. There is a stable 5 mm nodule in left lower lobe. There is a new 6 mm nodule in left upper lobe. No pleural effusion. The heart size is normal. No pericardial effusion. There is a small sliding hiatal hernia. There is mild thoracic spondylosis and severe lumba r spondylosis. IMPRESSION: 1. Diffuse lung disease with some areas of improvement and some areas of worsening, consistent with c hronic pneumonia such as Mycobacterium avium intracellulare (PENNIE). Reviewed, dictated and finalized at location B. IMPRESSION: 1. Diffuse lung disease with some areas of improvement and some areas of worsen ing, consistent with chronic pneumonia such as Mycobacterium avium intracellula re (PENNIE).
== END 2022-03-30 13:16 | disposition home or self-care (01) ==
LOC: CHSIMG 13:17
PROVIDERS: PCP Internal Medicine; Visit Provider Internal Medicine Pulmonary Disease
DX: R91.8 Other nonspecific abnormal finding of lung field (principal)
CPT/HCPCS: 71250

== ENCOUNTER 2022-08-03 15:42 | Outpatient (CLI) | payer MEDICARE, SELFPAY | END 2022-08-03 15:43 | disposition home or self-care (01) | LOC: CHSLAB 15:44 | PROVIDERS: PCP Internal Medicine; Visit Provider Specialist | DX: C44.519 Basal cell carcinoma of skin of other part of trunk (principal) | CPT/HCPCS: 88305 ==

== ENCOUNTER 2022-08-18 14:21 | Outpatient (CLI) | payer MEDICARE, SELFPAY ==
--- NOTE | ~2022-08-18 | XR_ITS ---
EXAMINATION: XR chest 2V Exam Date/Time: 08/18/2022 14:54 CDT HISTORY: SOB, RT ant, lat, post chest pain, hx COIVD Comparison: 09/09/2020, CT chest 03/30/2022. RESULT: Lines, tubes, and devices: None. Lungs and pleura: Emphysematous and senescent change. Linear scar in the right mid and left lower christopher ngs. Persistent reticulonodular opacities in the right midlung. Cardiomediastinal silhouette: Stable. Other: No acute osseous or upper abdominal finding. IMPRESSION: No acute cardiopulmonary process. Chronic changes detailed above. Reviewed, dictated and finalized at location K.
--- NOTE | ~2022-08-18 | CT_ITS ---
EXAMINATION: CTA chest PE protocol DATE: 08/18/2022 16:27 INDICATION: Right lower chest pain. Positive d-dimer. History of Covid. TECHNIQUE: Computed tomography angiography (CTA) of the chest was performed with 100 mL Omnipaque-350 intravenous contrast timed to evaluate the pulmonary arteries. Coronal maximum intensity projection 3D-reconstructions were created by the technologist. Automated exposure control and iterative reconst ruction technique were employed. Exam dose: 160.55 mGy-cm total exam DLP. COMPARISON: 08/18/2022 2 view chest 03/30/2022 CT chest FINDINGS: There is diagnostic contrast enhancement of the pulmonary arteries and no evidence of pulmo nary embolism. No thoracic aortic aneurysm or dissection is evident. No hilar or mediastinal mass lesion or lymphadenopathy is detected. Normal heart size. No pericardial or pleural effusion. There are bilateral pulmonary infiltrates including patchy tree-in-bud infiltrates of the right upper and middle and lower lobes and lingula in particular, in addition to infiltrate and/or atelectasis i n the bases of the lower lobes, left greater than right. Severe degenerative disc disease at C5-6, C6-7, L1-2 and L2-3. IMPRESSION: No evidence of pulmonary embolism Bilateral infiltrates, increased since 03/30/2022 Reviewed, dictated and finalized at Location [facility]. Reviewed, dictated and finalized at location A.
[2022-08-18 14:37] LABS: Basophils Absolute Auto 0.05 K/mm3 (0.00-0.10); Basophils Percent Auto 0.3 % (0.0-1.0); Eosinophils Absolute Auto 0.15 K/mm3 (0.02-0.50); Eosinophils Percent Auto 0.9 % (1.0-6.0); Hemoglobin 13.1 g/dL (11.7-13.8); Immature Granulocyte Absolute 0.24 K/mm3 (0.00-0.00); Immature Granulocyte Percent A 1.5 % (0.0-0.0); Lymphocytes Absolute Auto 1.78 K/mm3 (1.10-4.50); Lymphocytes Percent Auto 10.8 % (18.0-42.0); Mean Corpuscular HGB Conc 34.5 g/dL (32.0-36.0); Mean Corpuscular Hemoglobin 32.9 pg (27.0-31.0); Mean Corpuscular Volume 95.5 fL (78.0-102.0); Mean Platelet Volume 10.1 fl (9.2-11.8); Monocytes Absolute Auto 1.57 K/mm3 (0.10-0.90); Monocytes Percent Auto 9.5 % (2.0-11.0); Neutrophils Absolute Auto 12.7 K/mm3 (1.7-7.2); Platelet Count Result 284 K/mm3 (150-420); Red Blood Count 3.98 M/mm3 (4.20-5.40); Red Cell Distribution Width 12.8 % (11.6-14.4); White Blood Count 16.5 K/mm3 (4.8-10.8)
[2022-08-18 15:11] LABS: D Dimer 1.17 mg/L (0.19-0.50)
== END 2022-08-18 14:22 | disposition home or self-care (01) ==
PROVIDERS: PCP Internal Medicine; Visit Provider Internal Medicine
DX: R06.02 Shortness of breath (principal); Z86.16 Personal history of COVID-19; R79.1 Abnormal coagulation profile; R07.89 Other chest pain
CPT/HCPCS: 36415; 71046; 71275; 85025; 85380; Q9967

== ENCOUNTER 2022-08-26 12:52 | Outpatient (CLI) | payer MEDICARE, SELFPAY ==
--- NOTE | ~2022-08-26 | MM_ITS ---
EXAMINATION: MM screening [facility] BI w keron HISTORY: Screening mammogram TECHNIQUE: Craniocaudal and mediolateral oblique 3-D tomosynthesis images were obtained and synthetic 2-D images were generated. CAD analysis was submitted and interpreted. COMPARISON: No prior mammogram is available for comparison at this institution. BREAST PARENCHYMAL COMPOSITION: There are scattered areas of fibroglandular density. FINDINGS: 08/07/2021, 08/06/2020, 06/05/2019 bilateral screening mammogram There is no evidence of vickie picious mass, calcification, or architectural distortion to suggest malignancy in either breast. Ther e has been no suspicious interval change. IMPRESSION: 1. No mammographic evidence of malignancy. 2. Recommend routine screening mammography in one year. BI-RADS Category 1: Negative Reviewed, dictated and finalized at location A. EY FARMER
== END 2022-08-26 12:53 | disposition home or self-care (01) ==
LOC: CHSIMG 12:54
PROVIDERS: PCP Internal Medicine; Visit Provider Internal Medicine
DX: Z12.31 Encounter for screening mammogram for malignant neoplasm of breast (principal)
CPT/HCPCS: 77063; 77067

== ENCOUNTER 2022-09-02 12:54 | Outpatient (CLI) | payer MEDICARE, SELFPAY ==
[2022-09-02 12:58] VITALS: BMI 19.4
[2022-09-02] MEDS: ZOLEDRONIC ACID 5 MG/100 ML 100 ML 400 MG IVPB (13:05)
[2022-09-02 13:10] VITALS: BP 120/76; PULSE 78; RESP 14; TEMP 37; O2SAT 98
--- NOTE | 2022-09-02 13:14 | PC.NURSE ---
Patient here for yearly IV Reclast infusion. Education given. No concerns voiced. Reports did well with it last year. IV Reclast administered. SEE MAR. Tolerated well. Safe exit of hospital.
== END 2022-09-02 12:55 | disposition home or self-care (01) ==
PROVIDERS: PCP Internal Medicine; Visit Provider Internal Medicine
DX: M81.0 Age-related osteoporosis without current pathological fracture (principal)
CPT/HCPCS: 96374; J3489

== ENCOUNTER 2023-04-04 10:51 | Outpatient (CLI) | payer MEDICARE, SELFPAY ==
--- NOTE | ~2023-04-04 | CT_ITS ---
CT Scan of the Chest without Contrast: Clinical Indication: Pulmonary nodule Technique: Contiguous sections were acquired throughout the chest without intravenous contrast. Dose reduction technique was used on this scan by utilizing automated exposure control and iterative recon struction technique. The dose-length product (DLP) was 135.30 mGy-cm. COMPARISON: 08/18/2022 Findings: There is no evidence of any significant mediastinal, hilar or axillary lymphadenopathy. The mediastin al soft tissues appear normal. There is no evidence of pleural or pericardial effusion. There are extensive areas of tree-in-bud opacity, especially in the right upper lobe, right middle lo be, and lingula, similar to prior exam. There are worsening tree-in-bud opacities and irregular nodul ar opacities in the bilateral lower lobes. There are scattered areas of chronic appearing interstitia l thickening. There is new area of groundglass opacity in the left upper lobe with focal areas of mor e confluent nodularity within it. There is a new focal groundglass opacity in the right upper lobe. Images through the upper abdomen reveal no abnormalities. Impression: Findings consistent with extensive acute on chronic small airways infectious process. Findings are ce rtainly worsened from prior exam at the bilateral posterior lung bases. There are also new scattered areas of groundglass opacity, most prominent in the left upper lobe, con sistent with additional infection, unclear whether this represents the same underlying infectious pro cess versus a second concomitant infectious/inflammatory process. Reviewed, dictated and finalized at [facility]. Impression: Findings consistent with extensive acute on chronic small airways infectious pr ocess. Findings are certainly worsened from prior exam at the bilateral posteri or lung bases. There are also new scattered areas of groundglass opacity, most prominent in th e left upper lobe, consistent with additional infection, unclear whether this r epresents the same underlying infectious process versus a second concomitant in fectious/inflammatory process.
== END 2023-04-04 10:52 | disposition home or self-care (01) ==
LOC: CHSIMG 10:52
PROVIDERS: PCP Internal Medicine; Visit Provider Internal Medicine Pulmonary Disease
DX: R91.8 Other nonspecific abnormal finding of lung field (principal)
CPT/HCPCS: 71250

== ENCOUNTER 2023-04-13 14:03 | Outpatient (CLI) | payer MEDICARE, SELFPAY | END 2023-04-13 14:04 | disposition home or self-care (01) | PROVIDERS: PCP Internal Medicine; Visit Provider Internal Medicine Pulmonary Disease | DX: J47.9 Bronchiectasis, uncomplicated (principal) | CPT/HCPCS: 87015; 87070; 87077; 87116; 87186; 87205; 87206 ==

== ENCOUNTER 2023-05-19 08:59 | Outpatient (CLI) | payer MEDICARE, SELFPAY ==
--- NOTE | ~2023-05-19 | MR_ITS ---
MRI of the brain Clinical History: Headache Technique: Axial and sagittal T1-weighted images were acquired. These were followed by axial T2-weigh robin, diffusion weighted, gradient, and FLAIR images. Following intravenous administration of 11 cc Mu ltiHance gadolinium, T1-weighted fat-sat imaging was performed in the axial and coronal planes. Findings: There is no acute infarct, intracranial hemorrhage, or mass lesion. There are moderate administrative court justice andrzej white matter changes in the periventricular white matter bilaterally. Ventricles and subarachnoid spaces are minimally dilated. Orbits are unremarkable. Paranasal sinuses and mastoid air cells are clear. Major intracranial flow voids are intact. Sagittal midline structures are intact. No abnormal postcontrast enhancement identified. IMPRESSION: No acute infarct, intracranial hemorrhage, or mass lesion. Moderate chronic microvascular ischemic changes. Reviewed, dictated and finalized at [facility].
== END 2023-05-19 09:00 | disposition home or self-care (01) ==
LOC: CHSIMG 09:00
PROVIDERS: PCP Internal Medicine; Visit Provider Internal Medicine
DX: R51.9 Headache, unspecified (principal)
CPT/HCPCS: 70553; A9577

== ENCOUNTER 2023-08-30 13:47 | Outpatient (CLI) | payer MEDICARE, SELFPAY ==
--- NOTE | ~2023-08-30 | MM_ITS ---
EXAMINATION: MM screening [facility] BI w keron HISTORY: Screening mammogram TECHNIQUE: Craniocaudal and mediolateral oblique 3-D tomosynthesis images were obtained and synthetic 2-D images were generated. CAD analysis was submitted and interpreted. COMPARISON: 08/26/2022, 08/07/2021, 08/06/2020 BREAST PARENCHYMAL COMPOSITION: There are scattered areas of fibroglandular density. FINDINGS: No suspicious mass, calcification, or architectural distortion are identified in either hellen ast to suggest malignancy. There has been no suspicious interval change. IMPRESSION: 1. No mammographic evidence of malignancy. 2. Recommend routine screening mammography in one year. BI-RADS Category 1: Negative Reviewed, dictated and finalized at location A. LUBRICATOR
== END 2023-08-30 13:48 | disposition home or self-care (01) ==
LOC: CHSIMG 13:48
PROVIDERS: PCP Internal Medicine; Visit Provider Internal Medicine Pulmonary Disease
DX: Z12.31 Encounter for screening mammogram for malignant neoplasm of breast (principal)
CPT/HCPCS: 77063; 77067

== ENCOUNTER 2023-09-14 12:54 | Outpatient (CLI) | payer MEDICARE, SELFPAY ==
--- NOTE | ~2023-09-14 | DEXA_ITS ---
Bone Density Report Name: OLMAN AYOUB Age: 72 Sex: Female Ethnicity: White Date of : 1950 Indication: postmenopausal; screening for osteoporosis; height loss; asthma or emphysema; Referring Provider: Bella Swain Study: Bone densitometry was performed. Exam Date: September 14, 2023 Accession number: [id number] Bone Density: Region BMD T-score Z-score Classification AP Spine(L1-L4) 0.936 -1.0 1.4 Normal Femoral Neck (Left) 0.556 -2.6 -0.6 Osteoporosis Total Hip (Left) 0.750 -1.6 0.2 Osteopenia Femoral Neck (Right) 0.596 -2.3 -0.2 Osteopenia Total Hip (Right) 0.719 -1.8 -0.1 Osteopenia Femoral Neck Mean 0.576 -2.5 -0.4 Osteoporosis Total Hip Mean 0.735 -1.7 0.1 Osteopenia World Health Organization criteria for BMD impression classify patients as: Normal (T-score at or above -1.0), Osteopenia (T-score between -1.0 and -2.5), or Osteoporosis (T-score at or below -2.5). 10-year Fracture Risk: FRAX not reported because: Some T-score for Spine Total or Hip Total or Femoral Neck at or below -2.5 Clinical Information Provided by Patient: Has used the following medications: Vitamin D Has the following medical conditions: Asthma or Emphysema Patient maximum height was 65 Menopause Age: 48 No regular weight bearing exercise Does not regularly consume dairy products Drinks caffeinated beverages Onset of menses at age 13 Number of children 2 Impression: The patient has osteoporosis, based on the Left Femoral Neck T-score. Discussion: INCREASED RISK OF FRACTURE. BONE DENSITY IS UNDESIRABLY LOW AT ONE OR MORE SKELETAL SITES, CONSISTENT WITH POSTMENOPAUSAL OSTEOPOROSIS. This patient's lowest T-score meets the World Health Organization's (WHO) criteria for osteoporosis at one or more sites (T-score -2.5 or below). In untreated patients, the risk of osteoporotic fracture increases approximately two-fold for each 1.0 SD decrease in T-score. Low bone density is not the only risk factor for fracture; also consider factors such as patient's age, frailty or poor health, risk of falling, risk of injury, previous osteoporotic fracture, family history of osteoporosis, cigarette smoking, low body weight, etc. Not everyone with low bone mineral density has osteoporosis; osteomalacia and other metabolic bone disorders should also be considered. Patients who have osteoporosis should be evaluated for specific diseases and conditions (secondary causes) that may cause or contribute to bone loss. The [place] Association of Clinical Endocrinologists (AACE) and National Osteoporosis Foundation (NOF) recommend pharmacologic intervention for all postmenopausal women whose T-score is in this range. The patient should follow a healthful lifestyle (good nutrition with adequate calcium and vitamin D, and appropriate weight-bearing exercise). Follow-Up: Consider a repeat BMD and Vertebral
== END 2023-09-14 12:55 | disposition home or self-care (01) ==
PROVIDERS: PCP Internal Medicine; Visit Provider Internal Medicine
DX: Z78.0 Asymptomatic menopausal state (principal); M81.0 Age-related osteoporosis without current pathological fracture; M85.89 Other specified disorders of bone density and structure, multiple sites
CPT/HCPCS: 77080

== ENCOUNTER 2023-09-15 09:48 | Outpatient (CLI) | payer MEDICARE, SELFPAY ==
--- NOTE | 2023-10-18 10:55 | WPDHOLTEREM ---
Holter/Event Monitor Holter/Event Monitor Date of procedure: 09/15/23 Holter/Event Procedure: Event Monitor Indications: Palpitations Conclusion: 1. 28 days event monitor between 09/15/23-10/14/23. There are 48 available transmissions for analysis. 2. Predominant rhythm is sinus rhythm. HR range 50-184 bpm; average HR 77 bpm. 3. There are occasional premature supraventricular complexes with total burden of <1%. There are 2 episodes of supraventricular tachycardia on 09/17/23 at 18:54 and 10/09/23 at 20:32, fastest at 184 bpm and longest lasting 17 seconds. 4. There are occasional premature ventricular complexes with total burden of 2%. No ventricular tachycardia. 5. No significant pauses greater than 2 seconds. 6. There are 2 episodes of symptoms of chest pain and symptom other than listed which demonstrate sinus rhythm, HR range 86-100 bpm with both episodes with PVC.
== END 2023-09-15 09:49 | disposition home or self-care (01) ==
LOC: CHSCARD 09:49
PROVIDERS: PCP Internal Medicine; Visit Provider Internal Medicine
DX: R00.2 Palpitations (principal)
CPT/HCPCS: 93270

== ENCOUNTER 2023-10-13 11:57 | Outpatient (CLI) | payer MEDICARE, SELFPAY ==
[2023-10-13 11:59] VITALS: BMI 19.6
[2023-10-13] MEDS: ZOLEDRONIC ACID 5 MG/100 ML 100 ML 400 MG IVPB (12:10)
[2023-10-13 12:15] VITALS: BP 127/69; PULSE 72; RESP 14; TEMP 36.4; O2SAT 97
--- NOTE | 2023-10-13 12:36 | PC.NURSE ---
Patient here for yearly Reclast infusion. Education given. NO concerns voiced. IV Reclast administered. SEE MAR. Tolerated well. Safe exit of hospital per self/ambulatory.
== END 2023-10-13 11:58 | disposition home or self-care (01) ==
PROVIDERS: PCP Internal Medicine; Visit Provider Internal Medicine
DX: M81.0 Age-related osteoporosis without current pathological fracture (principal)
CPT/HCPCS: 96374; J3489

== ENCOUNTER 2023-10-18 13:00 | Outpatient (CLI) | payer MEDICARE, SELFPAY ==
--- NOTE | ~2023-10-18 | CT_ITS ---
CT Scan of the Chest without Contrast: Clinical Indication: Pulmonary mycobacterial infection Technique: Contiguous sections were acquired throughout the chest without intravenous contrast. Dose reduction technique was used on this scan by utilizing automated exposure control and iterative recon struction technique. The dose-length product (DLP) was 61.85 mGy-cm. COMPARISON: 04/04/2023 Findings: There is no evidence of any significant mediastinal, hilar or axillary lymphadenopathy. The mediastin al soft tissues appear normal. There is no evidence of pleural or pericardial effusion. There are patchy areas of tree-in-bud opacity with focal areas of scarring and/or minimal bronchiolec tasis, involving the lingula, right middle lobe, and lung bases. There is mild involving the inferior right upper lobe. Extent of disease is improved from prior exam, with decreased extent of tree-in-bu d nodularity. Images through the upper abdomen reveal no abnormalities. Impression: Findings consistent with acute on chronic small airways infectious process, such as PENNIE, with distrib ution detailed above. Extent of disease involvement is decreased as compared to prior exam. Reviewed, dictated and finalized at [facility]. RVENTIONAL CARDIOLOGIST Impression: Findings consistent with acute on chronic small airways infectious process, suc h as PENNIE, with distribution detailed above. Extent of disease involvement is de creased as compared to prior exam.
== END 2023-10-18 13:01 | disposition home or self-care (01) ==
LOC: CHSIMG 13:01
PROVIDERS: PCP Internal Medicine; Visit Provider Internal Medicine Pulmonary Disease
DX: J47.9 Bronchiectasis, uncomplicated (principal); A31.0 Pulmonary mycobacterial infection; R91.8 Other nonspecific abnormal finding of lung field
CPT/HCPCS: 71250

== ENCOUNTER 2023-11-08 13:42 | Outpatient (CLI) | payer MEDICARE, SELFPAY ==
[2023-11-08 14:59] LABS: Anion Gap 11 mmol/L (8-16); Blood Urea Nitrogen 20 mg/dL (7-18); Calcium 8.9 mg/dL (8.5-10.1); Carbon Dioxide 26 mmol/L (21-32); Chloride 105 mmol/L (98-108); Estimated Glomerular Filt Rate > 60; Glucose 95 mg/dL (70-99); Osmolality Calculated 296 mOsm/kg (285-295); Sodium 142 mmol/L (136-145)
[2023-11-08 15:00] LABS: Potassium 4.6 mmol/L (3.5-5.1)
== END 2023-11-08 13:43 | disposition home or self-care (01) ==
LOC: CHSLAB 13:44
PROVIDERS: PCP Internal Medicine; Visit Provider Internal Medicine Cardiovascular Disease
DX: J45.909 Unspecified asthma, uncomplicated (principal); R00.2 Palpitations; Z13.6 Encounter for screening for cardiovascular disorders
CPT/HCPCS: 36415; 80048

== ENCOUNTER 2023-12-09 14:00 | Outpatient (CLI) | payer MEDICARE, SELFPAY ==
[2023-12-09 14:25] LABS: Basophils Absolute Auto 0.05 K/mm3 (0.00-0.10); Basophils Percent Auto 0.5 % (0.0-1.0); Eosinophils Absolute Auto 0.25 K/mm3 (0.02-0.50); Eosinophils Percent Auto 2.6 % (1.0-6.0); Hematocrit 41.6 % (35.0-42.0); Hemoglobin 13.5 g/dL (11.7-13.8); Immature Granulocyte Absolute 0.03 K/mm3 (0.00-0.00); Immature Granulocyte Percent A 0.3 % (0.0-0.0); Lymphocytes Absolute Auto 1.79 K/mm3 (1.10-4.50); Lymphocytes Percent Auto 18.3 % (18.0-42.0); Mean Corpuscular HGB Conc 32.5 g/dL (32.0-36.0); Mean Corpuscular Hemoglobin 31.7 pg (27.0-31.0); Mean Corpuscular Volume 97.7 fL (78.0-102.0); Mean Platelet Volume 9.9 fl (9.2-11.8); Monocytes Absolute Auto 1.03 K/mm3 (0.10-0.90); Monocytes Percent Auto 10.5 % (2.0-11.0); Neutrophils Absolute Auto 6.6 K/mm3 (1.7-7.2); Neutrophils Percent Auto 67.8 % (50.0-70.0); Platelet Count Result 249 K/mm3 (150-420); Red Blood Count 4.26 M/mm3 (4.20-5.40); White Blood Count 9.8 K/mm3 (4.8-10.8)
[2023-12-09 14:49] LABS: Prothrombin Time 10.9 Seconds (9.50-12.10)
[2023-12-09 15:12] LABS: Anion Gap 8 mmol/L (8-16); Blood Urea Nitrogen 15 mg/dL (7-18); Carbon Dioxide 28 mmol/L (21-32); Chloride 101 mmol/L (98-108); Cholesterol 207 mg/dL (0-200); Estimated Glomerular Filt Rate 59; Glucose 87 mg/dL (70-99); HDL Direct 64 mg/dL (40-60); LDL Cholesterol Calculated 112 mg/dL (<130); Osmolality Calculated 283 mOsm/kg (285-295); Potassium 3.8 mmol/L (3.5-5.1); Sodium 137 mmol/L (136-145); Triglycerides 157 mg/dL (0-150)
== END 2023-12-09 14:01 | disposition home or self-care (01) ==
LOC: CHSLAB 14:02
PROVIDERS: PCP Internal Medicine; Visit Provider Internal Medicine Cardiovascular Disease
DX: R06.02 Shortness of breath (principal); R94.39 Abnormal result of other cardiovascular function study; I35.1 Nonrheumatic aortic (valve) insufficiency; Z13.6 Encounter for screening for cardiovascular disorders; J45.909 Unspecified asthma, uncomplicated; Z86.79 Personal history of other diseases of the circulatory system; R00.2 Palpitations
CPT/HCPCS: 36415; 80048; 80061; 85025; 85610

== ENCOUNTER 2023-12-12 15:09 | Outpatient (CLI) | payer MEDICARE, SELFPAY ==
--- NOTE | ~2023-12-12 | XR_ITS ---
EXAMINATION: XR chest 2V DATE: 12/12/2023 15:30 INDICATION: Cough and wheezing TECHNIQUE: PA and lateral views of the chest are obtained. COMPARISON: 08/18/2022; CT, 10/18/2023 FINDINGS: There are chronic airspace opacities in the lateral aspect of the left lower lobe and in th e right middle lobe. There are patchy nodular airspace opacities of the right lung. No pleural effusi on or pneumothorax. The cardiomediastinal silhouette is normal. There is mild thoracic spondylosis. A cardiac monitoring device is implanted in the medial aspect of the left breast. IMPRESSION: 1. Patchy nodular airspace opacities of the right lung suspicious for pneumonia. 2. Chronic opacities of the left lower lobe and right middle lobe, likely related to history of mycob acterial infection. Reviewed, dictated and finalized at location B. APPLIANCE TECH IMPRESSION: 1. Patchy nodular airspace opacities of the right lung suspicious for pneumonia . 2. Chronic opacities of the left lower lobe and right middle lobe, likely relat ed to history of mycobacterial infection.
[2023-12-12 15:27] LABS: Basophils Absolute Auto 0.05 K/mm3 (0.00-0.10); Basophils Percent Auto 0.6 % (0.0-1.0); Eosinophils Absolute Auto 0.12 K/mm3 (0.02-0.50); Eosinophils Percent Auto 1.5 % (1.0-6.0); Hematocrit 41.3 % (35.0-42.0); Hemoglobin 13.4 g/dL (11.7-13.8); Immature Granulocyte Absolute 0.02 K/mm3 (0.00-0.00); Immature Granulocyte Percent A 0.2 % (0.0-0.0); Lymphocytes Absolute Auto 1.32 K/mm3 (1.10-4.50); Lymphocytes Percent Auto 16.4 % (18.0-42.0); Mean Corpuscular HGB Conc 32.4 g/dL (32.0-36.0); Mean Corpuscular Hemoglobin 31.3 pg (27.0-31.0); Mean Corpuscular Volume 96.5 fL (78.0-102.0); Mean Platelet Volume 9.9 fl (9.2-11.8); Monocytes Percent Auto 11.2 % (2.0-11.0); Neutrophils Absolute Auto 5.6 K/mm3 (1.7-7.2); Neutrophils Percent Auto 70.1 % (50.0-70.0); Platelet Count Result 249 K/mm3 (150-420); Red Blood Count 4.28 M/mm3 (4.20-5.40); Red Cell Distribution Width 12.8 % (11.6-14.4)
[2023-12-12 15:32] LABS: Anion Gap 9 mmol/L (8-16); Blood Urea Nitrogen 14 mg/dL (7-18); Calcium 9.3 mg/dL (8.5-10.1); Carbon Dioxide 27 mmol/L (21-32); Chloride 102 mmol/L (98-108); Estimated Glomerular Filt Rate 57; Glucose 83 mg/dL (70-99); Osmolality Calculated 285 mOsm/kg (285-295); Potassium 3.8 mmol/L (3.5-5.1); Sodium 138 mmol/L (136-145)
[2023-12-12 16:06] LABS: SARS-CoV-2 RNA PCR Negative (Negative)
[2023-12-12 16:17] LABS: Strep Group A RT-PCR NOT DETECTED (Negative)
[2023-12-12 16:18] LABS: Influenza A QL RT-PCR Negative (Negative); Influenza B QL RT-PCR Negative (Negative); RSV RNA, RT-PCR Negative (Negative)
== END 2023-12-12 15:10 | disposition home or self-care (01) ==
LOC: CHSLAB 15:10
PROVIDERS: PCP Internal Medicine; Visit Provider Internal Medicine
DX: R05.9 Cough, unspecified (principal); J06.9 Acute upper respiratory infection, unspecified; R91.8 Other nonspecific abnormal finding of lung field
CPT/HCPCS: 36415; 71046; 80048; 85025; 87637; 87651

== ENCOUNTER 2024-05-18 12:03 | Outpatient (CLI) | payer MEDICARE, SELFPAY ==
--- NOTE | ~2024-05-18 | XR_ITS ---
Lumbosacral Spine: AP and lateral views Clinical History: Pain Findings: There is levoscoliosis of the lumbar spine. No acute fracture seen. There is severe degener ative disc narrowing at L1-L2, L2-L3, L4-L5 and L5-S1. There is mild to moderate degenerative disc na rrowing at L3-L4. There is severe facet arthropathy throughout the lumbar spine. The sacroiliac joint s are normally outlined. Impression: Severe spondylosis, with levoscoliosis. Reviewed, dictated and finalized at location M. Impression: Severe spondylosis, with levoscoliosis.
--- NOTE | ~2024-05-18 | XR_ITS ---
EXAMINATION: XR chest 2V DATE: 05/18/2024 12:28 INDICATION: Chronic obstructive pulmonary disease exacerbation. TECHNIQUE: Frontal and lateral views of the chest were obtained. COMPARISON: Chest 2 views 12/12/2023, chest CT 10/18/2023 FINDINGS: The lungs are hyperexpanded. There is mild scarring at the lung apices. There are chronic a irspace opacities in the peripheral lower lobes, right middle lobe, and lingula. No pleural effusion or pneumothorax. The heart size is normal. There is electronic implant in anterior chest wall. IMPRESSION: 1. 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 Reviewed, dictated and finalized at location A. IMPRESSION: 1. Chronic airspace opacities in the peripheral lower lobes, right middle lobe, and lingula, likely chronic infection such as Mycobacterium avium intracellula re (PENNIE).
--- NOTE | ~2024-05-18 | XR_ITS ---
EXAMINATION: XR hip BI wo pelvis DATE: 05/18/2024 12:27 INDICATION: Bilateral hip pain. Chronic low back pain. TECHNIQUE: 2 views of right hip and 2 views of left hip were obtained. COMPARISON: None. FINDINGS: Bone alignment is normal. No fracture. There is mild osteoarthritis of the hips. Osteitis p ubis is noted. IMPRESSION: 1. Mild osteoarthritis of the hips. Reviewed, dictated and finalized at location A.
== END 2024-05-18 12:04 | disposition home or self-care (01) ==
LOC: CHSIMG 12:05
PROVIDERS: PCP Internal Medicine; Visit Provider Internal Medicine
DX: M54.50 Low back pain, unspecified (principal); J44.1 Chronic obstructive pulmonary disease with (acute) exacerbation; M25.552 Pain in left hip; M25.551 Pain in right hip; M16.0 Bilateral primary osteoarthritis of hip; M43.06 Spondylolysis, lumbar region; M41.87 Other forms of scoliosis, lumbosacral region
CPT/HCPCS: 71046; 72100; 73521

== ENCOUNTER 2024-11-06 12:54 | Outpatient (CLI) | payer MEDICARE, SELFPAY ==
--- NOTE | ~2024-11-06 | MM_ITS ---
EXAMINATION: MM screening [facility] BI w keron HISTORY: Screening TECHNIQUE: Craniocaudal and mediolateral oblique 3-D tomosynthesis images were obtained and synthetic 2-D images were generated. CAD analysis was submitted and interpreted. COMPARISON: Comparison to multiple prior studies sequentially, with oldest reviewed study dated 05/30. BREAST PARENCHYMAL COMPOSITION: Not dense: There are scattered areas of fibroglandular density. FINDINGS: There is no evidence of suspicious mass, calcification, or architectural distortion to sugg est malignancy in either breast. There has been no suspicious interval change. IMPRESSION: 1. No mammographic evidence of malignancy. 2. Recommend routine screening mammography in one year. BI-RADS Category 1: Negative Reviewed, dictated and finalized at location A. HEALTH CAREGIVER
== END 2024-11-06 12:55 | disposition home or self-care (01) ==
PROVIDERS: PCP Internal Medicine; Visit Provider Internal Medicine
DX: Z12.31 Encounter for screening mammogram for malignant neoplasm of breast (principal)
CPT/HCPCS: 77063; 77067

== ENCOUNTER 2024-11-27 16:10 | Outpatient (CLI) | payer MEDICARE, SELFPAY ==
--- NOTE | ~2024-11-27 | CT_ITS ---
EXAMINATION:CT diagnostic chest wo con DATE: 11/27/2024 16:44 INDICATION: Bronchiectasis. TECHNIQUE: Computed tomography (CT) of the chest was performed without intravenous contrast. Automate d exposure control and iterative reconstruction technique were employed. The dose-length product (DLP ) was 134.41 mGy-cm. COMPARISON: Chest CT 10/18/23 FINDINGS: There is scarring at the lung apices. There is bronchiectasis in the lungs, worst in right middle lobe and lingula. There are centrilobular nodules in the upper lobes, right middle lobe, and r ight lower lobe with a lower lung predominance. There is near complete collapse of left lower lobe. T here is mucous plugging in left lower lobe. The heart size is normal. No pericardial effusion. There is mild thoracic spondylosis and severe cervical and lumbar spondylosis. IMPRESSION: 1. 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 2. New near-complete collapse of left lower lobe. Reviewed, dictated and finalized at location A. OR C SOFTWARE ENGINEER
--- OUTSIDE RECORDS SUMMARY | 2024-11-27 16:28 | XMS_ITS | CONTINUITY OF CARE DOCUMENT ---
Author Name eris schulte Address Unknown Organization [facility] Address [address] [place] [address] Phone [phone] Care Team Providers Care Employee Service Officer Name Role Phone Christopher ALAS, Elvira Unavailable [phone] CHRISTIANA PARKER MD Unavailable [phone] CHRISTIANA PARKER MD Unavailable PROBLEMS Condition Status Date Provider Notes S/P Implantable Loop Recorder-Biotronik ( MRI Safe) active Laury Castle Cardiology examination completed 9 - Ethan Sharma Hyperlipidemia active Alexandru Chen NP CAD, mild active Mihai He MD Shortness of breath active Ethan Sharma Abnormal nuclear stress test completed 01/17/16 - Mihai He MD Aortic regurgitation, moderate active Ethan Sharma Asthma active Ree Sigmund Hx of supraventricular tachycardia (SVT) active Ree Sigmund Palpitations active Ree Sigmund ENCOUNTERS Date Type Provider Location Encounter Diag nosis - In-person encounter Office Visit Elvira White MD [facility] Hyperlipidemia - In-person encounter Office Visit Mihai He MD [facility] Abnormal nuclear stress testCAD, mild - In-person encounter Office Visit Elvira White MD [facility] Cardiology examinationAortic regurgitation, moderateShortness of breath - In-person encounter Office Visit Elvira White MD [facility] PalpitationsHx of supraventricular tachycardia (SVT)Asthma VITAL SIGNS Date Observation Value Provider Body Mass Index (Ratio) 18.71 kg/m2 Ethan Sharma blood pressure, diastolic 75 mm[Hg] Li nkLog blood pressure, systolic 136 mm[Hg] Enriqueta kLog oxygen saturation, oximetry 97 % Marilee Powers blood pressure, cuff size regular Birgit rubio Powers blood pressure, diastolic 75 mm[Hg] Birgit fuller Powers blood pressure, systolic 136 mm[Hg] Trudy ramirez Powers respiratory rate E&M 14 /min Marilee Powers pulse rate 76 /min [facility]&M 109 [lb_av] [facility] height E&M 64 [in_i] [facility] Body Mass Index (Ratio) 19.57 kg/m2 Randy He MD blood pressure, cuff size regular Red angi blood pressure, diastolic 70 mm[Hg] Red saavedraet blood pressure, systolic 123 mm[Hg] Dustin cooney pulse rate 81 /min Vinicius oxygen saturation, oximetry 97 % Vinicius respiratory rate E&M 14 /min [facility] weight E&M 114 [lb_av] Vinicius height E&M 64 [in_i] Vinicius y Body Mass Index (Ratio) 18.71 kg/m2 Ethan Sharma blood pressure, diastolic 88 mm[Hg] Li nkLog blood pressure, systolic 148 mm[Hg] Enriqueta kLogic blood pressure, cuff size regular Maria Luz houser [place] blood pressure, diastolic 88 mm[Hg] Maria Luz [facility] blood pressure, systolic 148 mm[Hg] Geovani [facility] pulse rate 90 /min [facility] oxygen saturation, oximetry 94 % [facility] respiratory rate E&M 16 /min K[facility] weight E&M 109 [lb_av] [facility] height E&M 64 [in_i] [facility] Body Mass Index (Ratio) 52.69 kg/m2 Kirt White MD blood pressure, diastolic 81 mm[Hg] [facility] blood pressure, systolic 137 mm[Hg] Enriqueta blood pressure, cuff size regular Red rret blood pressure, diastolic 81 mm[Hg] Red rret blood pressure, systolic 137 mm[Hg] Dustin ret pulse rate 78 /min Vinicius da y height E&M 64 [in_i] Vinicius erda y oxygen saturation, oximetry 95 % V[facility]ius respiratory rate E&M 12 /min [facility] weight E&M 307 [lb_av] Vinicius y ALLERGIES Allergy Name Onset Date Reaction Criticality Status SEASONAL Low Criticality active HISTORY OF MEDICATION USE Medication Status Instructions Dates Provider Indications Com ments rosuvastatin 10 mg tablet active TAKE 1 TABLET BY MOUTH EVERY DAY 4 Alexandru Chen NP multivitamin tablet active Take 3 tablet by mouth once a day 4 Alexandru Chen NP diltiazem HCl 90 mg tablet active Take 1/2 tablet by mouth twice daily 3 Ethan Sharma magnesium oxide 200 mg magnesium tablet completed Take 1 tablet by mouth twice a day 3 - 4 Alexandru Chen NP magnesium oxide 400 mg magnesium tablet completed Take 1 tablet by mouth twice a day 9 - 6 Ethan Edith Wixela Inhub 500-50 mcg/dose blister with device active INHALE 1 PUFF INTO THE LUNGS TWICE A DAY 12 HOURS APART AND AT THE SAME TIME EACH DAY Ree Starkeypadmini levalbuterol tartrate 45 mcg/actuation HFA aerosol inhaler active INHALE 2 PUFFS (90 MCG) EVERY 6 HOURS Ree Silas celecoxib 200 mg capsule completed TAKE 1 CAPSULE (200 MG) BY MOUTH EVERY DAY - 4 Alexandru Chen NP SOCIAL HISTORY Date Observation Value Provider Underweight yes Ethan Sharma personal history of marijuana use no Alexandru Chen NP drug use no Alexandru Chen NP alcohol use no Alexandru Chen NP smoking status Never smoker Alexandru Beaver i, NP Underweight no Mihai He MD smoking status Never smoker Ethan Sharma Underweight yes Ethan Sharma smoking status Never smoker Kiera Cruz smoking status Never smoker Vinicius FUNCTIONAL STATUS Date Observation Value Provider HRA, CV Assess/Plan, Angina (inactive) Management Plan continue current therapy Alexandru Chen NP INSURANCE PROVIDERS Payer name Policy type / Coverage type [place] [employer] party ID [employer] Other [employer] MEDICARE FAYE PPO Medicare [id number] ADVANCE DIRECTIVES Name Date DISCUSSED - NO DECISION MADE TREATMENT PLAN Date Name Performer Cardiology: L ast LDL 121 (11/2023) W ill start Rosuvastatin and repeat labs in 1 year Alexandru Chen NP Cardiology: L ast echo 11/2023 Alexandru Chen NP Cardiology: S hortness of breath at baseline with Asthma Alexandru Chen LOCK EXPERT Cardiology: N o current episodes H er updated medication list for this problem includes: Diltiazem Hcl 90 Mg Tablet (Diltiazem hcl) ..... Take 1/2 tablet by mouth twice daily Alexandru Chen LOCK EXPERT Cardiology: N o angina. Continue current medications. H er updated medication list for this problem includes: Diltiazem Hcl 90 Mg Tablet (Diltiazem hcl) ..... Take 1/2 tablet by mouth twice daily Alexandru Chen LOCK EXPERT Cardiology: H er updated medication list for this problem includes: Diltiazem Hcl 90 Mg Tablet (Diltiazem hcl) ..... Take 1/2 tablet by mouth twice daily Ethan Gandaraserge Cardiology: H er updated medication list for this problem includes: Diltiazem Hcl 90 Mg Tablet (Diltiazem hcl) ..... Take 1/2 tablet by mouth twice daily [facility] Electrophysiology:ab normal stress nuclear, will proceed with cath given she is symptomatic. [facility] Electrophysiology:as sessed on Echo, she is SOB, may be attributable to her AI. [facility] Electrophysiology:Ec ho showed normal LVF. Stress showed moderate area of ischemia, attenuation could not be ruled out. R ecommend pt undergo cardiac cath with aortagram to rule out the ischemia seen on stress test, and to assess her AI more precisely. D iscussed risks and benefits, she was agreeable. [facility] Electrophysiology:Ec ho showed normal LVF. Stress showed moderate area of ischemia, attenuation could not be ruled out. Recommend cardiac cath [facility] Electrophysiology:Oc casional SOB associated with asthma. Her updated medication list for this problem includes: Wixela Inhub 500-50 Mcg/dose Blister With Device (Fluticasone propion-salmeterol) ..... Inhale 1 puff into the lungs twice a day 12 hours apart and at the same time each day Levalbuterol Tartrate 45 Mcg/actuation Hfa Aerosol Inhaler (Levalbuterol tartrate) ..... Inhale 2 puffs (90 mcg) every 6 hours Elvira White MD Electrophysiology:Hx SVT. C/o palpitations every few days lasting for a few minutes. W ill start on Magnesium Oxide 400mg bid. Obtain stress test/echo. Discussed ILR. Elvira White MD Electrophysiology:Hx SVT. C/o palpitations every few days lasting for a few minutes. W ill start on Magnesium Oxide 400mg bid. Obtain stress test/echo. Discussed ILR. Ree Rosen Electrophysiology:Oc casional SOB associated with asthma. Her updated medication list for this problem includes: Wixela Inhub 500-50 Mcg/dose Blister With Device (Fluticasone propion-salmeterol) ..... Inhale 1 puff into the lungs twice a day 12 hours apart and at the same time each day Levalbuterol Tartrate 45 Mcg/actuation Hfa Aerosol Inhaler (Levalbuterol tartrate) ..... Inhale 2 puffs (90 mcg) every 6 hours Ree Rosen Date Name LIPID PANEL EKG EKG PROTHROMBIN TIME WIT H INR LIPID PANEL CBC (INCLUDES DIFF/P LT) BASIC METABOLIC PANE L W/EGFR BASIC METABOLIC PANE L W/EGFR Stress Regadenoson Complete Echo HISTORY OF PROCEDURES Procedure Date Procedure Name Provider Procedure Notes S tatus Schedule Followup Elvira White MD 1 year completed EKG Elvira White MD comp leted
--- OUTSIDE RECORDS SUMMARY | 2024-11-27 16:28 | XMS_ITS | Clinical Summary ---
Author Organization [facility] Address [address], [place] [address] Phone Care Team Providers Care Dirt Supervisor Name Role Phone Bella Swain MD Primary Care Provider [phone] Social History Tobacco Use Types Packs/Day Years Used Date Smoking Tobacco: Never Assessed Sex and Gender Information Value Date Recorded Sex Assigned at Not on file Gender Identity Not on file Sexual Orientation Not on file Plan of Treatment Health Maintenance Due Date Last Done Comments Pneumococcal PPSV23/PCV13 65 + Years / Low and Medium Risk (1 of 4 - PCV) 2013 Influenza Vaccine (#1) 2024 Care Teams Dirt Supervisor Relationship Specialty Start Date End Date Bella Swain MD [address] [place] [address] PCP - General Internal Medicine 12/04/20
--- OUTSIDE RECORDS SUMMARY | 2024-11-27 16:28 | XMS_ITS | Clinical Summary ---
Author Organization [facility] Address [address] [place] [address] Care Team Providers Care Vessel Engineer Name Role Phone Bella Swain MD Primary Care Provider [phone] Allergies No known active allergies Medications SYMBICORT 160-4.5 MCG/ACT inhaler 07/14/2020 Act caio SPIRIVA HANDIHALER 18 MCG inhalation capsule 08/29/2020 Active Family History Relation Status Comments Father Mother Social History Tobacco Use Types Packs/Day Years Used Date Smoking Tobacco: Never Smokeless Tobacco: Never Alcohol Use Standard Drinks/Week Comments Never 0 (1 standard drink = 0.6 oz pur e alcohol) AUDIT-C Answer Date Recorded Q1: How often do you have a drink containing alc ohol? Never 09/24/2020 Average Number of Drinks Not on file 020 Frequency of Binge Drinking Not on file 06/2020 Comments No Sex and Gender Information Value Date Recorded Sex Assigned at Not on file Legal Sex Female 10:01 PM CDT Gender Identity Not on file Sexual Orientation Not on file Last Filed Vital Signs Vital Sign Reading Time Taken Comments Blood Pressure 135/72 09/24/2020 10:30 AM COLD PATCHER Pulse 75 09/24/2020 10:30 AM COLD PATCHER Temperature 36.7 C (98.1 F) 09/24/2020 6:34 AM COLD PATCHER Respiratory Rate 18 09/24/2020 10:30 AM COLD PATCHER Oxygen Saturation 99% 09/24/2020 10:30 AM COLD PATCHER Inhaled Oxygen Concentration - - Weight 51.3 kg (113 lb) 09/24/2020 6:34 AM COLD PATCHER Height 162.6 cm (5' 4 ) 09/24/2020 6:34 AM COLD PATCHER Body Mass Index 19.4 09/24/2020 6:34 AM COLD PATCHER Plan of Treatment Health Maintenance Due Date Last Done Comments Hepatitis C 1968 DTaP, Tdap and Td Vaccines ( 1 - Tdap) 1969 Zoster Vaccines (2 of 3) 04/04/2013 02/07/2013 Annual Medicare Wellness Visit 2013 Dexa Scan (General) 2013 Pneumococcal Vaccine: 65+ Ye ars (2 of 2 - PPSV23 or PCV20) 10/24/2016 10/24/2015 RSV Immunization or 60+ Years (1 - 1-dose 75+ series) 2023 COVID-19 Vaccine (2023-2 5 season) 2024 Influenza Adult (#1) 2024 Meningococcal B Vaccine Aged Out No l onger eligible based on patient's age to complete this topic Meningococcal Vaccine Aged Out No husam tanner eligible based on patient's age to complete this topic RSV Immunizations Under 20 Months Aged Out No longer eligible based on patient's age to complete this topic Insurance [employer] Care Teams Vessel Engineer Relationship Specialty Start Date End Date Bella Swain MD [address] [place] [id number] PCP - General INTERNAL MEDICINE 09/18/20
--- OUTSIDE RECORDS SUMMARY | 2024-11-27 16:28 | XMS_ITS | Continuity of Care Document ---
Author Organization [facility] Address [address] [place] [address] Phone Care Team Providers Care Guest Service Host Name Role Phone Unavailable Unavailable Unavailable Procedures Procedure Date MRI BRAIN WO/W CONTRAST Advance Directives Directive Yes / No Effective Date File Name No Information Encounters Encounter Description Practice Location Reason(s) For Visit Diagnoses Date Provider Providers Copied on Encounter [facility], [address] [place], [place], [id number], [place] tel:[phone] [facility] No Information 3 No Information [facility], [address] [place], [place], [id number], [place] tel:[phone] [facility] No Information [address] [place], [place], [id number], [place]. tel:[phone] Referring Provider: Benoit Agosto, [address], [address]. tel:[phone] Family History Family Member Type Diagnosis Age At Onset No Information Payers Payer name Insurance type Covered green party ID Authoriza tion(s) [employer] PRIME STANDAR D AND [employer] [id number] Social History Type Description Quantity Date Captured [...]
[2024-11-27 16:37] LABS: Basophils Absolute Auto 0.05 K/mm3 (0.00-0.10); Basophils Percent Auto 0.5 % (0.0-1.0); Eosinophils Absolute Auto 1.63 K/mm3 (0.02-0.50); Eosinophils Percent Auto 14.9 % (1.0-6.0); Hematocrit 41.3 % (35.0-42.0); Hemoglobin 13.6 g/dL (11.7-13.8); Immature Granulocyte Absolute 0.03 K/mm3 (0.00-0.00); Immature Granulocyte Percent A 0.3 % (0.0-0.0); Lymphocytes Absolute Auto 2.25 K/mm3 (1.10-4.50); Lymphocytes Percent Auto 20.6 % (18.0-42.0); Mean Corpuscular HGB Conc 32.9 g/dL (32-36); Mean Corpuscular Hemoglobin 30.7 pg (27.0-31.0); Mean Corpuscular Volume 93.2 fL (78.0-102.0); Mean Platelet Volume 10.6 fl (9.2-11.8); Monocytes Absolute Auto 0.85 K/mm3 (0.10-0.90); Monocytes Percent Auto 7.8 % (2.0-11.0); Neutrophils Absolute Auto 6.12 K/mm3 (1.70-7.20); Neutrophils Percent Auto 55.9 % (50.0-70.0); Platelet Count Result 235 K/mm3 (150-420); Red Blood Count 4.43 M/mm3 (4.20-5.40); Red Cell Distribution Width 12.7 % (11.6-14.4); White Blood Count 10.9 K/mm3 (4.8-10.8)
[2024-11-27 16:53] LABS: Alanine Aminotransferase 25 U/L (14-59); Albumin Level 3.7 g/dL (3.4-5.0); Alkaline Phosphatase 92 U/L (46-116); Amylase 54 U/L (25-115); Anion Gap 12 mmol/L (4-12); Aspartate Amino Transferase 29 U/L (15-37); Bilirubin,Total 0.5 mg/dL (0.00-1.00); Blood Urea Nitrogen 7 mg/dL (7-18); Calcium 9.3 mg/dL (8.5-10.1); Carbon Dioxide 26 mmol/L (21-32); Chloride 102 mmol/L (98-108); Estimated Glomerular Filt Rate > 60; Glucose 96 mg/dL (70-99); Lipase 25 U/L (16-77); Osmolality Calculated 288 mOsm/kg (285-295); Potassium 3.1 mmol/L (3.5-5.1); Sodium 140 mmol/L (136-145); Total Protein 7.5 g/dL (6.4-8.2)
== END 2024-11-27 16:11 | disposition home or self-care (01) ==
LOC: CHSLAB 16:12
PROVIDERS: PCP Internal Medicine; Visit Provider Internal Medicine
DX: R07.9 Chest pain, unspecified (principal); R11.0 Nausea; J98.4 Other disorders of lung; J98.19 Other pulmonary collapse
CPT/HCPCS: 36415; 71250; 80053; 82150; 83690; 85025

== ENCOUNTER 2024-11-27 18:24 | Inpatient (IN) | payer MEDICARE, SELFPAY ==
[2024-11-27] VITALS (11 sets, daily range): BP systolic 153–162; BP diastolic 88–97; PULSE 73–100; RESP 15–21; TEMP 36.6; O2SAT 93–100
--- NOTE | ~2024-11-27 | XR_ITS ---
EXAMINATION: XR chest 1V portable DATE: 11/29/2024 11:59 INDICATION: Left lung lower lobe consolidation. TECHNIQUE: A single frontal view of the chest was obtained. COMPARISON: Chest single view 11/29/2024, chest CT 11/27/2024 FINDINGS: There is mild scarring at the lung apices. There are mild airspace opacities in right mid a nd lower lung zones. There are airspace opacities in left lower lung zone. There is a small left pleu ral effusion. No pneumothorax. The heart size is normal. There is an electronic implant in the anteri or chest wall. IMPRESSION: 1. Stable airspace opacities in right mid and lower lung zones and left lower lung zone, likely a com bination of atelectasis and pneumonia. 2. Small left pleural effusion. Reviewed, dictated and finalized at location A. OLL SECRETARY IMPRESSION: 1. Stable airspace opacities in right mid and lower lung zones and left lower l melissa zone, likely a combination of atelectasis and pneumonia. 2. Small left pleural effusion.
--- NOTE | ~2024-11-27 | XR_ITS ---
Portable chest x-ray Comparison: 11/27/2024 Clinical History: Left lower lobe collapse Findings: Small left pleural effusion with left basilar atelectasis or pneumonia present. There is h aziness and interstitial prominence the right lung base. Cardiomediastinal silhouette is stable, wit h loop recorder. Bones and soft tissues are unremarkable. Impression: Small left pleural effusion with left basilar atelectasis versus pneumonia. Hazy and interstitial right basilar pulmonary disease, nonspecific. Reviewed, dictated and finalized at location M. ASSEMBLER Impression: Small left pleural effusion with left basilar atelectasis versus pneumonia. Hazy and interstitial right basilar pulmonary disease, nonspecific.
--- NOTE | ~2024-11-27 | XR_ITS ---
EXAMINATION: XR chest 1V portable DATE: 11/30/2024 06:15 INDICATION: Left lung lower lobe collapse. TECHNIQUE: A single frontal view of the chest was obtained. COMPARISON: Chest view 11/29/2024 FINDINGS: There is mild scarring at the lung apices. There are airspace opacities in the lower lung z ones, left worse than right. No pleural effusion or pneumothorax. The heart size is normal. There is electronic implant in the chest wall. There are old healed right rib fractures. IMPRESSION: 1. Stable airspace opacities in the lower lung zones, left worse than right, consistent with pneumoni a. Reviewed, dictated and finalized at location A. ATTENDANT IMPRESSION: 1. Stable airspace opacities in the lower lung zones, left worse than right, co nsistent with pneumonia.
--- NOTE | ~2024-11-27 | XR_ITS ---
CHEST RADIOGRAPH CLINICAL HISTORY: sob . COMPARISON: Reference is made to a CT examination of the chest performed 2 hours earlier TECHNIQUE: Single portable view of the chest. FINDINGS Loop recorder projects to the left of midline. The remainder of the cardiomediastinal silhouette is otherwise unremarkable. Dense consolidation within the left lung base. The remainder of the lungs are clear. IMPRESSION: Dense consolidation within the left lung base likely post obstructive as detected on recent CT examin ation Reviewed, dictated and finalized at location A. RE ARCHITECT IMPRESSION: Dense consolidation within the left lung base likely post obstructive as detect ed on recent CT examination
--- OUTSIDE RECORDS SUMMARY | 2024-11-27 18:26 | XMS_ITS | Continuity of Care Document ---
Author Organization [facility] Address [address] [place] [address] Phone Care Team Providers Care Highwall Drill Operator Name Role Phone Unavailable Unavailable Unavailable Procedures Procedure Date MRI BRAIN WO/W CONTRAST Advance Directives Directive Yes / No Effective Date File Name No Information Encounters Encounter Description Practice Location Reason(s) For Visit Diagnoses Date Provider Providers Copied on Encounter [facility], [address] [place], [place], [id number], [place] tel:[phone] [facility] No Information 3 No Information [facility] [place], [address] [place], [place], [id number], [place] tel:[phone] [facility] No Information [address] [place], [place], [id number], [place]. tel:[phone] Referring Provider: Benoit Agosto, [address], [address]. tel:[phone] Family History Family Member Type Diagnosis Age At Onset No Information Payers Payer name Insurance type Covered alliance party ID Authoriza tion(s) HUMANA PRIME STANDAR D AND SELECT [id number] Social History Type Description Quantity Date Captured [...]
--- OUTSIDE RECORDS SUMMARY | 2024-11-27 18:26 | XMS_ITS | Clinical Summary ---
Author Organization [facility] Address [address] [place] [address] Care Team Providers Care Solutions Sales Executive Name Role Phone Bella Swain MD Primary Care Provider [phone] Allergies No known active allergies Medications SYMBICORT 160-4.5 MCG/ACT inhaler 07/14/2020 Act acio SPIRIVA HANDIHALER 18 MCG inhalation capsule 08/29/2020 [...] Comments Blood Pressure 135/72 09/24/2020 10:30 AM SNOWMAKER Pulse 75 09/24/2020 10:30 AM SNOWMAKER Temperature 36.7 C (98.1 F) 09/24/2020 6:34 AM SNOWMAKER Respiratory Rate 18 09/24/2020 10:30 AM SNOWMAKER Oxygen Saturation 99% 09/24/2020 10:30 AM SNOWMAKER Inhaled Oxygen Concentration - - Weight 51.3 kg (113 lb) 09/24/2020 6:34 AM SNOWMAKER Height 162.6 cm (5' 4 ) 09/24/2020 6:34 AM SNOWMAKER Body Mass Index 19.4 09/24/2020 6:34 AM SNOWMAKER Plan of Treatment Health Maintenance Due Date [...] complete this topic Insurance [employer] Care Teams Solutions Sales Executive Relationship Specialty Start Date End Date Bella Swain MD [address] [place] [id number] PCP - General INTERNAL MEDICINE 09/18/20
--- OUTSIDE RECORDS SUMMARY | 2024-11-27 18:26 | XMS_ITS | Clinical Summary ---
Author Organization [facility] Address [address] [address] Phone Care Team Providers Care Sound Engineer Name Role Phone Bella Swain MD Primary Care Provider [phone] Social History Tobacco Use Types Packs/Day Years [...] 2013 Influenza Vaccine (#1) 2024 Care Teams Sound Engineer Relationship Specialty Start Date End Date Bella Swain MD [address] [place] [address] PCP - General Internal Medicine 12/04/20
--- OUTSIDE RECORDS SUMMARY | 2024-11-27 18:26 | XMS_ITS | CONTINUITY OF CARE DOCUMENT ---
Author Name eris schulte Address Unknown Organization [facility] Address [address] [place] [address] Phone [phone] Care Team Providers Care Checkering Machine Adjuster Name Role Phone Christopher ALAS, Elvira Unavailable CHRISTIANA PARKER MD Unavailable CHRISTIANA PARKER MD Unavailable PROBLEMS Condition Status Date Provider Notes S/P Implantable Loop Recorder-Biotronik ( MRI Safe) active Laury Castle Cardiology examination completed 9 - Ethan Sharma Palpitations active Ree Sigmund Hx of supraventricular tachycardia (SVT) active Ree Sigmund Asthma active Ree Sigmund Aortic regurgitation, moderate active Ethan Sharma Abnormal nuclear stress test completed 01/17/16 - Mihai He MD Shortness of breath active Ethan Sharma CAD, mild active Mihai He MD Hyperlipidemia active Alexandru Chen FRUIT TRIMMER ENCOUNTERS Date Type Provider Location Encounter Diag nosis - In-person encounter Office Visit Elvira White MD [facility] Hyperlipidemia - In-person encounter Office Visit Mihai He MD [facility] Abnormal nuclear stress testCAD, mild - In-person encounter Office Visit Elvira White MD [facility] Cardiology examinationAortic regurgitation, moderateShortness of breath - In-person encounter Office Visit Elvira White MD [facility] PalpitationsHx of supraventricular tachycardia (SVT)Asthma VITAL [...] /min Marilee Powers pulse rate 76 /min [facility] weight E&M 109 [lb_av] [facility] height E&M 64 [in_i] [facility] Body Mass Index (Ratio) 19.57 kg/m2 Randy [...] pressure, cuff size regular Maria Luz houser [place] blood pressure, diastolic 88 mm[Hg] Maria Luz [facility] blood pressure, systolic 148 mm[Hg] Geovani [facility] pulse rate 90 /min [facility] oxygen saturation, oximetry 94 % [facility] respiratory rate E&M 16 /min Kiera Johnson [facility] weight E&M 109 [lb_av] [facility] height E&M 64 [in_i] [facility] Body Mass Index (Ratio) 52.69 kg/m2 Kirt White MD blood pressure, diastolic 81 mm[Hg] [facility] blood pressure, systolic 137 mm[Hg] Enriqueta blood [...] Payer name Policy type / Coverage type [place] red democrat ID A[employer] HE[employer]CARE Other AETNA MEDICARE FAYE PPO Medicare [id number] ADVANCE DIRECTIVES Name Date DISCUSSED - NO DECISION MADE TREATMENT PLAN Date Name Performer Cardiology: L ast LDL 121 (11/2023) W ill start Rosuvastatin and repeat labs in 1 year Alexandru Chen NP Cardiology: L ast echo 11/2023 Alexandru Chen NP Cardiology: S hortness of breath at baseline with Asthma Alexandru Chen FRUIT TRIMMER Cardiology: N o current episodes H er updated medication list for this problem includes: Diltiazem Hcl 90 Mg Tablet (Diltiazem hcl) ..... Take 1/2 tablet by mouth twice daily Alexandru Chen FRUIT TRIMMER Cardiology: N o angina. Continue current medications. H er updated medication list for this problem includes: Diltiazem Hcl 90 Mg Tablet (Diltiazem hcl) ..... Take 1/2 tablet by mouth twice daily Alexandru Chen FRUIT TRIMMER Cardiology: H er updated medication list for this problem includes: Diltiazem Hcl 90 Mg Tablet (Diltiazem hcl) ..... Take 1/2 tablet by mouth twice daily Ethan Gandaraserge Cardiology: H er updated medication list for this problem includes: Diltiazem Hcl 90 Mg Tablet (Diltiazem hcl) ..... Take 1/2 tablet by mouth twice daily [facility] Electrophysiology:ab normal stress nuclear, will proceed with cath given she is symptomatic. [facility] Electrophysiology:as sessed on Echo, she is SOB, may be attributable to her AI. [facility] Electrophysiology:Ec ho showed normal LVF. Stress showed moderate area of ischemia, attenuation could not be ruled out. R ecommend pt undergo cardiac cath with aortagram to rule out the ischemia seen on stress test, and to assess her AI more precisely. D iscussed risks and benefits, she was agreeable. [facility] Electrophysiology:Ec ho showed normal LVF. Stress showed moderate area of ischemia, attenuation could not be ruled out. Recommend cardiac cath [facility] Electrophysiology:Oc casional SOB associated with asthma. Her [...]
--- NOTE | 2024-11-27 18:37 | ECG_ITS ---
Test Date: 2024-11-27 18:52:10 Measurements Intervals [place] Rate: 79 P: 76 [place]: 165 QRS: 65 QRSD: 80 T: 78 QT: 359 QTc: 414 Interpretive Statements SINUS RHYTHM POSSIBLE RIGHT VENTRICULAR CONDUCTION DELAY ST ABNORMALITY IN INFERIOR LEADS- CONSIDER ISCHEMIA BASELINE ARTIFACT- II, III, AVL, AVF, V6 ABNORMAL ECG No previous ECG available for comparison Electronically Signed On 11-27-2024 20:01:14 PROJECT SYSTEMS ENGINEER by Gregg Barboza D.O.
[2024-11-27 19:00] LABS: Basophils Absolute Auto 0.1 K/mm3 (0.0-0.1); Basophils Percent Auto 0.6 % (0.2-1.2); Eosinophils Absolute Auto 1.5 K/mm3 (0-0.3); Eosinophils Percent Auto 11.9 % (0-4.4); Hematocrit 40.6 % (37.0-47.0); Hemoglobin 13.3 g/dL (12.0-15.0); Immature Granulocyte Absolute 0.04 K/mm3 (0.00-0.031); Immature Granulocyte Percent A 0.3 % (0-0.5); Lymphocytes Absolute Auto 2.11 K/mm3 (0.9-3.2); Lymphocytes Percent Auto 16.4 % (18.3-44.2); Mean Corpuscular HGB Conc 32.8 g/dl (32-36); Mean Corpuscular Hemoglobin 31.1 pg (26-34); Mean Corpuscular Volume 94.9 fl (80-100); Mean Platelet Volume 11.1 fl (7.4-10.4); Monocytes Percent Auto 7.6 % (2.6-8.5); Neutrophils Absolute Auto 8.1 K/mm3 (1.3-6.7); Neutrophils Percent Auto 63.2 % (45.5-73.1); Platelet Count Result 227 k/mm3 (150-375); Red Blood Count 4.28 M/mm3 (4.2-5.4); Red Cell Distribution Width 12.9 % (11.5-14.5); White Blood Count 12.8 K/mm3 (4.5-10.0)
--- OUTSIDE RECORDS SUMMARY | 2024-11-27 19:33 | XMS_ITS | Clinical Summary ---
Author Organization [facility] Address [address], [place] [address] Phone Care Team Providers Care Biomass Plant Technician Name Role Phone Bella Swain MD Primary Care Provider [phone] Social History Tobacco Use Types Packs/Day Years [...] 2013 Influenza Vaccine (#1) 2024 Care Teams Biomass Plant Technician Relationship Specialty Start Date End Date Bella Swain MD [address] [place] [address] PCP - General Internal Medicine 12/04/20
--- OUTSIDE RECORDS SUMMARY | 2024-11-27 19:33 | XMS_ITS | Clinical Summary ---
Author Organization [facility] Address [address] [place] [address] Care Team Providers Care Motor Bike Mechanic Name Role Phone Bella Swain MD Primary Care Provider [phone] Allergies No known active allergies Medications SYMBICORT [...] Comments Blood Pressure 135/72 09/24/2020 10:30 AM CONSTRUCTION CONTROLLER Pulse 75 09/24/2020 10:30 AM CONSTRUCTION CONTROLLER Temperature 36.7 C (98.1 F) 09/24/2020 6:34 AM CONSTRUCTION CONTROLLER Respiratory Rate 18 09/24/2020 10:30 AM CONSTRUCTION CONTROLLER Oxygen Saturation 99% 09/24/2020 10:30 AM CONSTRUCTION CONTROLLER Inhaled Oxygen Concentration - - Weight 51.3 kg (113 lb) 09/24/2020 6:34 AM CONSTRUCTION CONTROLLER Height 162.6 cm (5' 4 ) 09/24/2020 6:34 AM CONSTRUCTION CONTROLLER Body Mass Index 19.4 09/24/2020 6:34 AM CONSTRUCTION CONTROLLER Plan of Treatment Health Maintenance Due Date [...] complete this topic Insurance AETNA Care Teams Motor Bike Mechanic Relationship Specialty Start Date End Date Bella Swain MD [address] [place] [id number] PCP - General INTERNAL MEDICINE 09/18/20
--- OUTSIDE RECORDS SUMMARY | 2024-11-27 19:33 | XMS_ITS | Continuity of Care Document ---
Author Organization [facility] Address [address] [place] [address] Phone Care Team Providers Care Purchasing Officer Name Role Phone Unavailable Unavailable Unavailable Procedures Procedure Date MRI BRAIN WO/W CONTRAST Advance Directives Directive Yes / No Effective Date File Name No Information Encounters Encounter Description Practice Location Reason(s) For Visit Diagnoses Date Provider Providers Copied on Encounter [facility], [address] [place], [place], [id number], [place] tel:[phone] [facility] No Information 3 No Information [facility] [place], [address] [place], [place], [address], [place] tel:[phone] [facility] No Information [address] [place], [place], [id number], [place]. tel:[phone] Referring Provider: Benoit Agosto, [address], [address]. tel:[phone] Family History Family Member Type Diagnosis Age At Onset No Information Payers Payer name Insurance type Covered green party ID Authoriza tion(s) HUMANA PRIME STANDAR D AND SELECT [id number] Social History Type Description Quantity Date Captured [...]
--- OUTSIDE RECORDS SUMMARY | 2024-11-27 19:33 | XMS_ITS | CONTINUITY OF CARE DOCUMENT ---
Author Name eris schulte Address Unknown Organization [facility] Address [address] [place] [address] Phone [phone] Care Team Providers Care Forms Analysis Manager Name Role Phone Christopher ALAS, Elvira Unavailable [phone] CHRISTIANA PARKER MD Unavailable [phone] CHRISTIANA PARKER MD Unavailable [phone] PROBLEMS Condition Status Date Provider Notes S/P [...] Mihai He MD Hyperlipidemia active Alexandru Chen LEAD BURNER HELPER ENCOUNTERS Date Type Provider Location Encounter Diag nosis - In-person encounter Office Visit Elvira White MD [facility] Hyperlipidemia - In-person encounter Office Visit Mihai He MD [facility] Abnormal nuclear stress testCAD, mild - In-person encounter Office Visit Elvira White MD [facility] Cardiology examinationAortic regurgitation, moderateShortness of breath - In-person encounter Office Visit Elvira White MD [facility] PalpitationsHx of supraventricular tachycardia (SVT)Asthma VITAL [...] Powers pulse rate 76 /min [facility] weight E&M 109 [lb_av] [facility] height E&M 64 [in_i] [facility] Body Mass Index (Ratio) 19.57 kg/m2 Randy [...] pressure, cuff size regular Maria Luz houser [place] blood pressure, diastolic 88 mm[Hg] Maria Luz [facility] blood pressure, systolic 148 mm[Hg] Geovani [facility] pulse rate 90 /min [facility] oxygen saturation, oximetry 94 % [facility] respiratory rate E&M 16 /min Kiera Johnson [facility] weight E&M 109 [lb_av] [facility] height E&M 64 [in_i] [facility] Body Mass Index (Ratio) 52.69 kg/m2 Kirt White MD blood pressure, diastolic 81 mm[Hg] [facility] blood pressure, systolic 137 mm[Hg] Enriqueta [...] Payer name Policy type / Coverage type [place] red alliance party ID [employer] HE[employer]CARE Other AETNA MEDICARE FAYE PPO Medicare [id number] ADVANCE DIRECTIVES Name Date DISCUSSED - NO DECISION MADE TREATMENT PLAN Date Name Performer Cardiology: L ast LDL 121 (11/2023) W ill start Rosuvastatin and repeat labs in 1 year Alexandru Chen NP Cardiology: L ast echo 11/2023 Alexandru Chen NP Cardiology: S hortness of breath at baseline with Asthma Alexandru Chen LEAD BURNER HELPER Cardiology: N o current episodes H er updated medication list for this problem includes: Diltiazem Hcl 90 Mg Tablet (Diltiazem hcl) ..... Take 1/2 tablet by mouth twice daily Alexandru Chen LEAD BURNER HELPER Cardiology: N o angina. Continue current medications. H er updated medication list for this problem includes: Diltiazem Hcl 90 Mg Tablet (Diltiazem hcl) ..... Take 1/2 tablet by mouth twice daily Alexandru Chen LEAD BURNER HELPER Cardiology: H er updated medication list for this problem includes: Diltiazem Hcl 90 Mg Tablet (Diltiazem hcl) ..... Take 1/2 tablet by mouth twice daily Ethan Gandaraserge Cardiology: H er updated medication list for this problem includes: Diltiazem Hcl 90 Mg Tablet (Diltiazem hcl) ..... Take 1/2 tablet by mouth twice daily [facility] Electrophysiology:ab normal stress nuclear, will proceed with cath given she is symptomatic. [facility] Electrophysiology:as sessed on Echo, she is SOB, may be attributable to her AI. [facility] Electrophysiology:Ec ho showed normal LVF. Stress showed moderate area of ischemia, attenuation could not be ruled out. R ecommend pt undergo cardiac cath with aortagram to rule out the ischemia seen on stress test, and to assess her AI more precisely. D iscussed risks and benefits, she was agreeable. [facility] Electrophysiology:Ec ho showed normal LVF. Stress showed moderate area of ischemia, attenuation could not be ruled out. Recommend cardiac cath [facility] Electrophysiology:Oc casional SOB associated with asthma. Her [...]
[2024-11-27 19:51] LABS: Alanine Aminotransferase 24 U/L (6-35); Albumin Level 3.8 g/dL (3.5-5.1); Alkaline Phosphatase 77 U/L (38-126); Anion Gap 11 mmol/L (4-12); Aspartate Amino Transferase 38 U/L (14-36); Bilirubin,Total 0.7 mg/dL (0.2-1.3); Blood Urea Nitrogen 8 mg/dL (7-17); Calcium 8.9 mg/dL (8.4-10.2); Carbon Dioxide 22 mmol/L (22-30); Chloride 102 mmol/L (98-107); Estimated CRCL calculation 54 ml/min; Estimated Glomerular Filt Rate > 60; Glucose 107 mg/dL (65-110); Potassium 3.2 mmol/L (3.4-5.0); Sodium 135 mmol/L (137-145)
--- NOTE | 2024-11-27 20:03 | ED.SOB ---
HPI - SOB/Dyspnea General Chief Complaint: Shortness of Breath/Dyspnea Stated Complaint: reports Chepe sent her here for pneomothorax Time Seen by Provider: 11/27/24 19:10 Source: patient and family Mode of arrival: ambulatory Limitations: no limitations History of Present Illness HPI Narrative: Patient presents to the ED with concern for findings on CT. She has had a frequent chronic cough at baseline. Recently on levofloxacin. Sees monogram technician Dr Mayer / Juan. She had been vomiting that have now resolved. Saw PCP Dr Cassie Swain in [facility] today who could not appreciate breath sounds and ordered outpatient labs and CT imaging. Told after this imaging to present to ED. She is complaining of side pain ( like gas ) and back pain. No chest pain or shortness of breath. No trauma or on anticoagulation. No history of copd. Non smoker. Tried heat at home. Tried walking and stretching yesterday. Related Data Home Medications ?Medication ?Instructions ?Recorded ?Confirmed ?Last Taken ?Type calcium carbonate (Tums) 200 mg PO TID PRN Indigestion 11/04/21 11/28/24 11/26/21 History ibuprofen 200 mg tablet (Advil) 400 mg PO Q6H PRN Pain 11/04/21 11/28/24 11/25/21 History levalbuterol tartrate 45 1 puff inhalation Q6H PRN Dyspnea 11/04/21 11/28/24 11/27/21 07:00 History mcg/actuation aerosol inhaler (Xopenex HFA) diltiazem HCl 90 mg tablet 45 mg PO BID 02/21/24 11/28/24 Unknown History Allergies Allergy/AdvReac Type Severity Reaction Status Date / Time No Known Allergies Allergy Mild Verified 11/27/24 18:50 [facility] Past Medical History Medical History (Updated 11/28/24 @ 17:05 by Jhon Dickey MD) Endometrial thickening on ultrasound Postmenopausal bleeding History of vaginal delivery x 2 Bronchiectasis Age related osteoporosis Chronic GERD Arthritis Asthma Surgical History Surgical History History of hysteroscopy [place] teeth removed History of dilation and curettage H/O hernia repair Family History Family History Father Hypertension Family history of coronary artery disease Mother Asthma Hypertension Heart disease Cerebrovascular accident Sibling Asthma Other Family history of allergic disorder Family history of cardiovascular disease Family history of malignant neoplasm Social History Social History Smoking status: Never smoker Alcohol intake: never Substance use: never Substance use type: does not use Do You Feel Safe in your Home?: Yes Lack of Transportation: No Lack of Food: Never True Current Housing: I Have Housing Concerned About Future Housing: No Difficulty Paying Gas/Electric Bills: No Difficulty Paying for Meds: No Currently Unemployed: No Education: High School Diploma/GED Difficulty w/ Childcare or Family Care: No Living arrangements: with family Additional living arrangements comments: SON Spiritual care concerns: No Exam Narrative: GENERAL: Well-appearing, well-nourished, and in no acute distress. HEAD: Normocephalic, atraumatic. EYES: Non injected, non icteric ENT: Nares clear, no rhinorrhea or epistaxis. NECK: Supple. CHEST: Speaking in full sentences. No respiratory distress. Lungs clear to auscultation bilaterally anterior and posterior apices. HEART: Regular rate and rhythm. . ABDOMEN: Soft, nondistended. EXTREMITIES: Normal range of motion. No lower extremity edema. SKIN: Warm, dry, no rash. NEURO: No focal deficits. Alert and oriented x3. PSYCH: Normal mood and affect. Course Vital Signs Vital signs: Vital Signs Temperature 97.9 F 11/27/24 18:42 Pulse Rate 100 11/27/24 18:42 Respiratory Rate 20 11/27/24 18:42 Blood Pressure 162/88 H 11/27/24 18:42 Pulse Oximetry 96 11/27/24 18:42 Oxygen Delivery Room Air 11/27/24 18:42 Temperature 98.0 F 11/29/24 08:00 Pulse Rate 64 11/29/24 08:00 Respiratory Rate 12 11/29/24 08:00 Blood Pressure 105/60 11/29/24 08:00 Pulse Oximetry 96 11/29/24 08:00 Oxygen Delivery Room Air 11/29/24 08:00 MDM - SOB/Dyspnea MDM Narrative Medical decision making narrative: Patient sent to ED after having outpatient labs and imaging performed and told she had a collapsed lung (some confusion versus possible ptx) after being seen by pcp where breath sounds difficult to appreciate. In the emergency department she is afebrile with vital signs notable for hypertension. Her labs are notable for hypokalemia. Will replete in order magnesium level. She has a leukocytosis. There is evidence of post obstructive process on CXR obtained after CT obtained (findings below) D-dimer mildly elevated however by YEARS Algorithm : No Clinical signs of DVT: No Hemoptysis: No PE is most likely diagnosis: No D-dimer >1000ng/mL: No Result: PE Excluded Discussed patient with Dr. Hays, hospitalist. He recommended discussing with Site Superintendent. Dr Dickey is business continuity specialist and she follows with him, last seen in early to mid February and then saw Royce Aguilera later in 2023. Patient has extensive history as detailed in their notes. 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 Discussed with Dr. Dickey who noted that it was reasonable to treat for pneumonia with ceftriaxone and azithromycin presuming initially outpatient failure from levofloxacin alone and await sputum culture before proceeding with MAC treatment. Discussed with Dr Pierre. He was amenable to patient being med surge with telemetry if stable or decreasing troponin verses IMU if troponin is increasing. Troponin is increasing so will be placed in the IMU. Remains withough chest pain, hypoxia. Medical Records Attestation: I reviewed the patient's medical records. Medical records narrative: CT obtained earlier today showed: IMPRESSION: 1. 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 2. New near-complete collapse of left lower lobe. Lab Data 11/29/24 03:57 11/29/24 03:57 Labs: Lab Results 11/27/24 11/27/24 11/27/24 Range/Units 18:51 19:33 20:55 WBC 12.8 H (4.5-10.0) K/mm3 RBC 4.28 (4.2-5.4) M/mm3 Hgb 13.3 (12.0-15.0) g/dL Hct 40.6 (37.0-47.0) % MCV 94.9 (80-100) fl MCH 31.1 (26-34) pg MCHC 32.8 (32-36) g/dl RDW 12.9 (11.5-14.5) % Plt Count 227 (150-375) k/mm3 MPV 11.1 H (7.4-10.4) fl Immature Gran % (Auto) 0.3 (0-0.5) % Neut % (Auto) 63.2 (45.5-73.1) % Lymph % (Auto) 16.4 L (18.3-44.2) % [place] % (Auto) 7.6 (2.6-8.5) % Eos % (Auto) 11.9 H (0-4.4) % Baso % (Auto) 0.6 (0.2-1.2) % Lymph # (Auto) 2.11 (0.9-3.2) K/mm3 [place] # (Auto) 1.0 H (0.1-0.6) K/mm3 Eos # (Auto) 1.5 H (0-0.3) K/mm3 Baso # (Auto) 0.1 (0.0-0.1) K/mm3 Abs Immat Gran (auto) 0.04 H (0.00-0.031) K/mm3 Absolute Neuts (auto) 8.1 H (1.3-6.7) K/mm3 Absolute Nucleated RBC 0.000 (0.0-0.012) K/mm3 Nucleated RBC % 0.0 (0.0-0.2) % PT (11.1-14.7) Seconds INR APTT (22.3-36.8) Seconds D-Dimer (<0.48) ug/mL Sodium 135 L (137-145) mmol/L Potassium 3.2 L (3.4-5.0) mmol/L Chloride 102 (98-107) mmol/L Carbon Dioxide 22 (22-30) mmol/L Anion Gap 11 (4-12) mmol/L BUN 8 (7-17) mg/dL Creatinine 0.54 L (0.7-1.0) mg/dL Estim Creat Clear Calc 54 ml/min Estimated GFR > 60 (59 - ) Glucose 107 (65-110) mg/dL Calcium 8.9 (8.4-10.2) mg/dL Magnesium 1.6 (1.6-2.3) mg/dL Total Bilirubin 0.7 (0.2-1.3) mg/dL AST 38 H (14-36) U/L ALT 24 (6-35) U/L Alkaline Phosphatase 77 (38-126) U/L Troponin I 0.057 H* (0.000-0.034) ng/mL Total Protein 7.0 (6.3-8.2) g/dL Albumin 3.8 (3.5-5.1) g/dL Triglycerides (<150) mg/dL Cholesterol (0-200) mg/dL LDL Cholesterol Direct mg/dL HDL Direct mg/dL Procalcitonin ng/mL Nasal MRSA (PCR) (NOT DETECTE) Nasal RSV Type A (PCR) Nasal RSV Type B (PCR) Chlamy pneumoniae PCR Adenovirus DNA Human Bocavirus (MICHELL) Coronavirus Type OC43 Coronavirus Type HKU1 Coronavirus Type 229E Coronavirus Type NL63 Human Metapneumovir PCR Influenza A (RT-PCR) Negative (Negative) Influenza A (PCR) Influenza A (H1) RNA Influenza A (H3) PCR Influenza B (RT-PCR) Negative (Negative) Ur L.pneumophila Ag M. pneumoniae DNA Parainfluenza PCR Parainfluenza 2 (PCR) Parainfluenza 3 RNA (PCR) Parainfluenza 4 (PCR) RSV (RT-PCR) Negative (Negative) Rhino/Enterovirus (MICHELL) SARS-CoV-2 RNA (RT-PCR) Negative (Negative) Urine Pneumococcal Ag Influenza Type B (PCR) Misc Test Comment 11/27/24 11/27/24 11/28/24 Range/Units 21:14 23:10 02:46 WBC 8.9 (4.5-10.0) K/mm3 RBC 4.36 (4.2-5.4) M/mm3 Hgb 13.3 (12.0-15.0) g/dL Hct 40.3 (37.0-47.0) % MCV 92.4 (80-100) fl MCH 30.5 (26-34) pg MCHC 33.0 (32-36) g/dl RDW 12.6 (11.5-14.5) % Plt Count 213 (150-375) k/mm3 MPV 11.3 H (7.4-10.4) fl Immature Gran % (Auto) 0.2 (0-0.5) % Neut % (Auto) 68.1 (45.5-73.1) % Lymph % (Auto) 16.5 L (18.3-44.2) % Lagrange % (Auto) 8.4 (2.6-8.5) % Eos % (Auto) 6.2 H (0-4.4) % Baso % (Auto) 0.6 (0.2-1.2) % Lymph # (Auto) 1.47 (0.9-3.2) K/mm3 [place] # (Auto) 0.8 H (0.1-0.6) K/mm3 Eos # (Auto) 0.6 H (0-0.3) K/mm3 Baso # (Auto) 0.1 (0.0-0.1) K/mm3 Abs Immat Gran (auto) 0.02 (0.00-0.031) K/mm3 Absolute Neuts (auto) 6.1 (1.3-6.7) K/mm3 Absolute Nucleated RBC 0.000 (0.0-0.012) K/mm3 Nucleated RBC % 0.0 (0.0-0.2) % PT 14.7 (11.1-14.7) Seconds INR 1.1 APTT 28.1 (22.3-36.8) Seconds D-Dimer 0.56 H (<0.48) ug/mL Sodium 131 L (137-145) mmol/L Potassium 3.3 L (3.4-5.0) mmol/L Chloride 97 L (98-107) mmol/L Carbon Dioxide 22 (22-30) mmol/L Anion Gap 12 (4-12) mmol/L BUN 7 (7-17) mg/dL Creatinine 0.50 L (0.7-1.0) mg/dL Estim Creat Clear Calc 58 ml/min Estimated GFR > 60 (59 - ) Glucose 131 H (65-110) mg/dL Calcium 9.0 (8.4-10.2) mg/dL Magnesium 1.5 L (1.6-2.3) mg/dL Total Bilirubin (0.2-1.3) mg/dL AST (14-36) U/L ALT (6-35) U/L Alkaline Phosphatase (38-126) U/L Troponin I 0.073 H* D (0.000-0.034) ng/mL Total Protein (6.3-8.2) g/dL Albumin (3.5-5.1) g/dL Triglycerides 74 (<150) mg/dL Cholesterol 201 H (0-200) mg/dL LDL Cholesterol Direct 98 mg/dL HDL Direct 57 mg/dL Procalcitonin 0.1 ng/mL Nasal MRSA (PCR) (NOT DETECTE) Nasal RSV Type A (PCR) Nasal RSV Type B (PCR) Chlamy pneumoniae PCR Adenovirus DNA Human Bocavirus (MICHELL) Coronavirus Type OC43 Coronavirus Type HKU1 Coronavirus Type 229E Coronavirus Type NL63 Human Metapneumovir PCR Influenza A (RT-PCR) (Negative) Influenza A (PCR) Influenza A (H1) RNA Influenza A (H3) PCR Influenza B (RT-PCR) (Negative) Ur L.pneumophila Ag M. pneumoniae DNA Parainfluenza PCR Parainfluenza 2 (PCR) Parainfluenza 3 RNA (PCR) Parainfluenza 4 (PCR) RSV (RT-PCR) (Negative) Rhino/Enterovirus (MICHELL) SARS-CoV-2 RNA (RT-PCR) (Negative) Urine Pneumococcal Ag Influenza Type B (PCR) Misc Test Comment 11/28/24 11/28/24 11/28/24 Range/Units 02:47 08:55 13:05 WBC (4.5-10.0) K/mm3 RBC (4.2-5.4) M/mm3 Hgb (12.0-15.0) g/dL Hct (37.0-47.0) % MCV (80-100) fl MCH (26-34) pg MCHC (32-36) g/dl RDW (11.5-14.5) % Plt Count (150-375) k/mm3 MPV (7.4-10.4) fl Immature Gran % (Auto) (0-0.5) % Neut % (Auto) (45.5-73.1) % Lymph % (Auto) (18.3-44.2) % Lagrange % (Auto) (2.6-8.5) % Eos % (Auto) (0-4.4) % Baso % (Auto) (0.2-1.2) % Lymph # (Auto) (0.9-3.2) K/mm3 [place] # (Auto) (0.1-0.6) K/mm3 Eos # (Auto) (0-0.3) K/mm3 Baso # (Auto) (0.0-0.1) K/mm3 Abs Immat Gran (auto) (0.00-0.031) K/mm3 Absolute Neuts (auto) (1.3-6.7) K/mm3 Absolute Nucleated RBC (0.0-0.012) K/mm3 Nucleated RBC % (0.0-0.2) % PT (11.1-14.7) Seconds INR APTT 63.9 H (22.3-36.8) Seconds D-Dimer (<0.48) ug/mL Sodium (137-145) mmol/L Potassium (3.4-5.0) mmol/L Chloride (98-107) mmol/L Carbon Dioxide (22-30) mmol/L Anion Gap (4-12) mmol/L BUN (7-17) mg/dL Creatinine (0.7-1.0) mg/dL Estim Creat Clear Calc ml/min Estimated GFR (59 - ) Glucose (65-110) mg/dL Calcium (8.4-10.2) mg/dL Magnesium (1.6-2.3) mg/dL Total Bilirubin (0.2-1.3) mg/dL AST (14-36) U/L ALT (6-35) U/L Alkaline Phosphatase (38-126) U/L Troponin I 0.076 H* 0.055 H* D (0.000-0.034) ng/mL Total Protein (6.3-8.2) g/dL Albumin (3.5-5.1) g/dL Triglycerides (<150) mg/dL Cholesterol (0-200) mg/dL LDL Cholesterol Direct mg/dL HDL Direct mg/dL Procalcitonin ng/mL Nasal MRSA (PCR) Not detected (NOT DETECTE) Nasal RSV Type A (PCR) Nasal RSV Type B (PCR) Chlamy pneumoniae PCR Adenovirus DNA Human Bocavirus (MICHELL) Coronavirus Type OC43 Coronavirus Type HKU1 Coronavirus Type 229E Coronavirus Type NL63 Human Metapneumovir PCR Influenza A (RT-PCR) (Negative) Influenza A (PCR) Influenza A (H1) RNA Influenza A (H3) PCR Influenza B (RT-PCR) (Negative) Ur L.pneumophila Ag M. pneumoniae DNA Parainfluenza PCR Parainfluenza 2 (PCR) Parainfluenza 3 RNA (PCR) Parainfluenza 4 (PCR) RSV (RT-PCR) (Negative) Rhino/Enterovirus (MICHELL) SARS-CoV-2 RNA (RT-PCR) (Negative) Urine Pneumococcal Ag Influenza Type B (PCR) Misc Test Comment 11/28/24 11/28/24 Range/Units 14:00 14:59 WBC (4.5-10.0) K/mm3 RBC (4.2-5.4) M/mm3 Hgb (12.0-15.0) g/dL Hct (37.0-47.0) % MCV (80-100) fl MCH (26-34) pg MCHC (32-36) g/dl RDW (11.5-14.5) % Plt Count (150-375) k/mm3 MPV (7.4-10.4) fl Immature Gran % (Auto) (0-0.5) % Neut % (Auto) (45.5-73.1) % Lymph % (Auto) (18.3-44.2) % Lagrange % (Auto) (2.6-8.5) % Eos % (Auto) (0-4.4) % Baso % (Auto) (0.2-1.2) % Lymph # (Auto) (0.9-3.2) K/mm3 [place] # (Auto) (0.1-0.6) K/mm3 Eos # (Auto) (0-0.3) K/mm3 Baso # (Auto) (0.0-0.1) K/mm3 Abs Immat Gran (auto) (0.00-0.031) K/mm3 Absolute Neuts (auto) (1.3-6.7) K/mm3 Absolute Nucleated RBC (0.0-0.012) K/mm3 Nucleated RBC % (0.0-0.2) % PT (11.1-14.7) Seconds INR APTT (22.3-36.8) Seconds D-Dimer (<0.48) ug/mL Sodium (137-145) mmol/L Potassium (3.4-5.0) mmol/L Chloride (98-107) mmol/L Carbon Dioxide (22-30) mmol/L Anion Gap (4-12) mmol/L BUN (7-17) mg/dL Creatinine (0.7-1.0) mg/dL Estim Creat Clear Calc ml/min Estimated GFR (59 - ) Glucose (65-110) mg/dL Calcium (8.4-10.2) mg/dL Magnesium (1.6-2.3) mg/dL Total Bilirubin (0.2-1.3) mg/dL AST (14-36) U/L ALT (6-35) U/L Alkaline Phosphatase (38-126) U/L Troponin I (0.000-0.034) ng/mL Total Protein (6.3-8.2) g/dL Albumin (3.5-5.1) g/dL Triglycerides (<150) mg/dL Cholesterol (0-200) mg/dL LDL Cholesterol Direct mg/dL HDL Direct mg/dL Procalcitonin ng/mL Nasal MRSA (PCR) (NOT DETECTE) Nasal RSV Type A (PCR) Pending Nasal RSV Type B (PCR) Pending Chlamy pneumoniae PCR Pending Adenovirus DNA Pending Human Bocavirus (MICHELL) Pending Coronavirus Type OC43 Pending Coronavirus Type HKU1 Pending Coronavirus Type 229E Pending Coronavirus Type NL63 Pending Human Metapneumovir PCR Pending Influenza A (RT-PCR) (Negative) Influenza A (PCR) Pending Influenza A (H1) RNA Pending Influenza A (H3) PCR Pending Influenza B (RT-PCR) (Negative) Ur L.pneumophila Ag Pending M. pneumoniae DNA Pending Parainfluenza PCR Pending Parainfluenza 2 (PCR) Pending Parainfluenza 3 RNA (PCR) Pending Parainfluenza 4 (PCR) Pending RSV (RT-PCR) (Negative) Rhino/Enterovirus (MICHELL) Pending SARS-CoV-2 RNA (RT-PCR) Pending (Negative) Urine Pneumococcal Ag Pending Influenza Type B (PCR) Pending Misc Test Comment Pending Imaging Data Radiologist's impression: IMPRESSION: Dense consolidation within the left lung base likely post obstructive as detected on recent CT examination ECG Data EKG #1: Attestation: I personally reviewed and interpreted this ECG as follows: ECG completion date: 11/27/24 ECG completion time: 18:52 Interpretation: Normal sinus rhythm at a rate of 79 beats per minute. NH interval 165. QRS 80. QT/QTC 359/414. Good R-wave progression across the precordial leads. No T-wave inversions. Possible right ventricular conduction delay. Borderline left ventricular hypertrophy. Discharge Plan Discharge Clinical Impression: Hypokalemia, Leukocytosis, Non-ST elevation CT (NSTEMI), Chronic lung disease, Other pulmonary collapse Patient Disposition: Still a Patient Condition: Stable Time of Disposition: 22:32
[2024-11-27 20:24] LABS: Troponin I 0.057 ng/mL (0.000-0.034)
[2024-11-27 20:31] LABS: Magnesium 1.6 mg/dL (1.6-2.3)
[2024-11-27] MEDS: POTASSIUM BICARBONATE 25 MEQ TABEF 50 MEQ PO (20:35)
[2024-11-27] MEDS: ASPIRIN 81 MG CHEWABLE TABLET 324 MG PO (20:36)
[2024-11-27 21:40] LABS: Influenza A QL RT-PCR Negative (Negative); Influenza B QL RT-PCR Negative (Negative); RSV RNA, RT-PCR Negative (Negative); SARS-CoV-2 RNA PCR Negative (Negative)
[2024-11-27 21:43] LABS: D Dimer 0.56 ug/mL (<0.48)
[2024-11-27] MEDS: HYDROcodone/acetaminophen (*CRX) 5-325 MG TABLET 1 TAB PO (22:12)
--- NOTE | 2024-11-27 22:28 | ECG_ITS ---
Test Date: 2024-11-27 22:34:13 Measurements Intervals [place] Rate: 75 P: 72 CT: 153 QRS: 69 QRSD: 85 T: 71 QT: 387 QTc: 434 Interpretive Statements SINUS RHYTHM POSSIBLE LEFT ATRIAL ENLARGEMENT POSSIBLE RIGHT VENTRICULAR CONDUCTION DELAY LEFT VENTRICULAR HYPERTROPHY AND ST-T CHANGE ST ABNORMALITY IN INFERIOR LEADS- CONSIDER ISCHEMIA BASELINE ARTIFACT- I, II, III, AVR, AVL, AVF, V4-V6 ABNORMAL ECG Compared to ECG 11/27/2024 18:52:10 NO SIGNIFICANT CHANGE Electronically Signed On 11-28-2024 07:04:08 PSYCHOLOGIST CLINICAL by Gregg Barboza D.O.
[2024-11-27 23:45] LABS: Troponin I 0.073 ng/mL (0.000-0.034)
[2024-11-27] MEDS: AZITHROMYCIN 250 MG TABLET 500 MG PO (23:45)
[2024-11-28] VITALS (21 sets, daily range): BP systolic 92–142; BP diastolic 43–81; PULSE 16–89; RESP 16–18; TEMP 36.3–37; O2SAT 92–96; BMI 17.4; BMI 17.6
--- NOTE | 2024-11-28 00:28 | PC.NURSE ---
pt complaining of nausea, dry heaving in room. This RN offered pt zofran for nausea multiple times and pt refuses, states the more medicine I get the worse I feel Pt aware that nausea medicine is available for her if she decides she would like it.
[2024-11-28] MEDS: ONDANSETRON INJ 4 MG/2 ML VIAL IV PUSH (02:21)
--- NOTE | 2024-11-28 02:30 | ADMGEN ---
This patient, Dawn Burgess, was admitted to IMU Room 205-02. Patient/family oriented to hospital policies and general routines including ID bracelet, bed and alarms, visiting hours, pain management, procedures, bathroom and other care routines, personal items, smoking policy, room service/diet, and visiting hours. Information on how to activate the Rapid Response Team has been discussed. Patient/Family are encouraged to report perceived risks to care and to ask questions if they do not understand what they are told or what they should do.
[2024-11-28] MEDS: METOPROLOL TARTRATE 25 MG TABLET PO ×2 (02:52→21:57)
[2024-11-28] MEDS: guaiFENesin 12 HR 600 MG TABCR 1200 MG PO ×2 (02:52→21:56)
[2024-11-28] MEDS: HEPARIN SOD/D5W 100 UNITS/ML 25,000 UNITS/250 ML BAG IV CONT (02:53)
--- NOTE | 2024-11-28 03:00 | ECG_ITS ---
Test Date: 2024-11-28 15:12:27 Measurements Intervals [place] Rate: 76 P: 69 GA: 155 QRS: 52 QRSD: 88 T: 53 QT: 420 QTc: 473 Interpretive Statements SINUS RHYTHM MISSING LEAD V6 POSSIBLE RIGHT VENTRICULAR CONDUCTION DELAY BORDERLINE ST-T WAVE ABNORMALITY- INFERIOR LEADS BASELINE ARTIFACT- I, II, III, AVR, AVL, AVF, V1-V2, V5 BORDERLINE ECG Compared to ECG 11/27/2024 22:34:13 NO SIGNIFICANT CHANGE Electronically Signed On 11-28-2024 15:42:34 HAND THERAPIST by Gregg Barboza D.O.
[2024-11-28 03:02] LABS: Basophils Absolute Auto 0.1 K/mm3 (0.0-0.1); Basophils Percent Auto 0.6 % (0.2-1.2); Eosinophils Absolute Auto 0.6 K/mm3 (0-0.3); Eosinophils Percent Auto 6.2 % (0-4.4); Hematocrit 40.3 % (37.0-47.0); Hemoglobin 13.3 g/dL (12.0-15.0); Immature Granulocyte Absolute 0.02 K/mm3 (0.00-0.031); Immature Granulocyte Percent A 0.2 % (0-0.5); Lymphocytes Absolute Auto 1.47 K/mm3 (0.9-3.2); Lymphocytes Percent Auto 16.5 % (18.3-44.2); Mean Corpuscular Hemoglobin 30.5 pg (26-34); Mean Corpuscular Volume 92.4 fl (80-100); Mean Platelet Volume 11.3 fl (7.4-10.4); Monocytes Absolute Auto 0.8 K/mm3 (0.1-0.6); Monocytes Percent Auto 8.4 % (2.6-8.5); Neutrophils Absolute Auto 6.1 K/mm3 (1.3-6.7); Neutrophils Percent Auto 68.1 % (45.5-73.1); Platelet Count Result 213 k/mm3 (150-375); Red Blood Count 4.36 M/mm3 (4.2-5.4); Red Cell Distribution Width 12.6 % (11.5-14.5); White Blood Count 8.9 K/mm3 (4.5-10.0)
[2024-11-28 03:13] LABS: INR 1.1; Prothrombin Time 14.7 Seconds (11.1-14.7)
[2024-11-28 03:14] LABS: Cholesterol 201 mg/dL (0-200); HDL Direct 57 mg/dL; Partial Thromboplastin Time 28.1 Seconds (22.3-36.8); Triglycerides 74 mg/dL (<150)
[2024-11-28 03:19] LABS: Anion Gap 12 mmol/L (4-12); Blood Urea Nitrogen 7 mg/dL (7-17); Carbon Dioxide 22 mmol/L (22-30); Chloride 97 mmol/L (98-107); Estimated CRCL calculation 58 ml/min; Estimated Glomerular Filt Rate > 60; Glucose 131 mg/dL (65-110); Magnesium 1.5 mg/dL (1.6-2.3); Potassium 3.3 mmol/L (3.4-5.0); Sodium 131 mmol/L (137-145)
[2024-11-28 03:26] LABS: LDL Cholesterol Direct 98 mg/dL
[2024-11-28 03:33] LABS: Procalcitonin 0.1 ng/mL
[2024-11-28 03:33] LABS: Troponin I 0.076 ng/mL (0.000-0.034)
[2024-11-28] MEDS: POTASSIUM CHLORIDE 20 MEQ ER TABLET PO (06:30)
[2024-11-28] MEDS: MAGNESIUM SULF 2 GM/WATER 50ML 2 GM/50 ML BAG IVPB (06:30)
[2024-11-28] MEDS: ATORVASTATIN 40 MG TABLET PO (08:59)
[2024-11-28] MEDS: dilTIAZem HCL 30 MG TABLET PO ×2 (08:59→21:56)
[2024-11-28] MEDS: DILTIAZEM 1 EACH PO ×2 (09:05→21:58)
[2024-11-28 09:27] LABS: Partial Thromboplastin Time 63.9 Seconds (22.3-36.8)
[2024-11-28 09:41] LABS: Troponin I 0.055 ng/mL (0.000-0.034)
--- NOTE | 2024-11-28 09:45 | P.HP_ITS ---
H&P: HPI History of Present Illness Date/Time: 11/28/24 09:45 Chief Complaint: Left posterior thorax pain Narrative: This 74 year old female pt with PMH of chronic asthma and Bronchietasis managed by Dr. Mayer from Pulmonology, HLD intolerant of statins and a tachy arrhythmia presented to the ER overnight with complaints of having shortness of breath and being sent here from [place] for a near left lower lobe lung collapse and recurrent PNA. Pt endorses that for one week and a half she has had abdominal cramping with N/V and over the course of the past couple of days developed a pain in the left posterior thorax worse with inspiration. This prompted her to call her PCP, who then ordered a CT scan as her breath sounds were decreased in the LLL. 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 She was sent here for further workup and evaluation. In the ER workup was performed with review of the pts imaging, and findings were significant for elevation of D-dimer, marginally low Sodium, Potassium and Chloride, unremarkable Creatinine, low magnesium and Troponins that were elevated. Pt was cleared of potential PE by YEARS criteria, she received a Magnesium supplementation rider, and troponins are flat, but she is on Heparin drip pending Cardiology evaluation that has been placed. Suspect this is all demand from her current Respiratory situation, but will await expert consult given that she also has HLD and does not take prescribed medication. She is receiving abx of Rocephin and Azithromycin for her unresolving PNA pending Pulmonology consult. Pt has complaints today of pain in the left posterior thorax that continues, but no other acute complaints of pain or distress. She denies any fevers now or at any other point in time. Review of Systems Review of Systems: All systems reviewed & are unremarkable except as noted in HPI and below PMFSH Past Medical History Medical History Endometrial thickening on ultrasound Postmenopausal bleeding History of vaginal delivery x 2 Bronchiectasis Age related osteoporosis Chronic GERD Arthritis Asthma Surgical History Surgical History History of hysteroscopy [place] teeth removed History of dilation and curettage H/O hernia repair Family History Family History Father Hypertension Family history of coronary artery disease Mother Asthma Hypertension Heart disease Cerebrovascular accident Sibling Asthma Other Family history of allergic disorder Family history of cardiovascular disease Family history of malignant neoplasm Social History Social History Smoking status: Never smoker Alcohol intake: never Substance use: never Substance use type: does not use Do You Feel Safe in your Home?: Yes Lack of Transportation: No Lack of Food: Never True Current Housing: I Have Housing Concerned About Future Housing: No Difficulty Paying Gas/Electric Bills: No Difficulty Paying for Meds: No Currently Unemployed: No Education: High School Diploma/GED Difficulty w/ Childcare or Family Care: No Living arrangements: with family Additional living arrangements comments: SON Spiritual care concerns: No Meds Home Medications and Allergies Home Medications ?Medication ?Instructions ?Recorded ?Confirmed ?Type calcium carbonate (Tums) 200 mg PO TID PRN Indigestion 11/04/21 11/28/24 History ibuprofen 200 mg tablet (Advil) 400 mg PO Q6H PRN Pain 11/04/21 11/28/24 History levalbuterol tartrate 45 1 puff inhalation Q6H PRN Dyspnea 11/04/21 11/28/24 History mcg/actuation aerosol inhaler (Xopenex HFA) diltiazem HCl 90 mg tablet 45 mg PO BID 02/21/24 11/28/24 History fluticasone 250 mcg-salmeterol 50 See Rx Instructions .Route 08/31/24 11/28/24 Rx mcg/dose blistr powdr for .COMPLEX 90 days #180 ea inhalation Allergies Allergy/AdvReac Type Severity Reaction Status Date / Time No Known Allergies Allergy Mild Verified 11/27/24 18:50 Vital Signs Vital Signs - 24 hr 11/27/24 18:42 11/27/24 18:54 11/27/24 18:54 Temperature 97.9 F Pulse Rate 100 84 Respiratory Rate 20 21 H Blood Pressure 162/88 H Pulse Oximetry 96 98 98 Oxygen Delivery Room Air Autopap 11/27/24 18:55 11/27/24 20:57 11/27/24 21:00 Temperature Pulse Rate 80 79 82 Respiratory Rate 21 H 15 18 Blood Pressure 158/95 H Pulse Oximetry 95 97 100 Oxygen Delivery 11/27/24 21:26 11/27/24 21:51 11/27/24 22:39 Temperature Pulse Rate 86 83 86 Respiratory Rate 21 H 20 19 Blood Pressure 153/97 H Pulse Oximetry 95 97 96 Oxygen Delivery 11/27/24 23:02 11/27/24 23:15 11/27/24 23:31 Temperature Pulse Rate 80 73 89 Respiratory Rate 21 H 20 18 Blood Pressure 153/96 H Pulse Oximetry 95 93 Oxygen Delivery 11/28/24 02:16 11/28/24 02:52 11/28/24 03:00 Temperature 97.4 F L Pulse Rate 79 58 L 60 Respiratory Rate 18 Blood Pressure 142/81 H Pulse Oximetry 96 Oxygen Delivery 11/28/24 04:00 11/28/24 06:00 11/28/24 07:36 Temperature 97.4 F L 98.6 F Pulse Rate 62 68 73 Respiratory Rate 18 18 Blood Pressure 125/74 126/43 L Pulse Oximetry 92 96 Oxygen Delivery Exam Const: General: comfortable and no acute distress Other: Thin appearing female pt in no acute distress. HENMT: Mouth: Yes dry mucous membranes Eyes: General: appearance normal, both eyes and all related structures Neck: Neck: supple and no JVD Lymphatic: lymphadenopathy not noted Chest: Other: Tenderness to palpation in posterior left thorax. Resp: Effort & Inspection: normal respiratory effort Auscultation: diminished lung sounds on the left in the lower lung viramontes Cardio: Rate: regular rate Rhythm: regular rhythm Heart sounds: no gallops, no murmurs and no rubs GI: Inspection: non-distended GI Palp: Yes Soft to palpation and No Tenderness to palpation present (GI) Auscultation: normal bowel sounds Skin: General skin exam: normal color, no rashes or lesions noted and no erythema Lesions: no lesions noted Rashes: no rashes noted Wounds: no wounds Neuro: General: gait normal Speech: normal speech Motor exam (neuro): 5/ 5 motor strength present throughout and Normal motor muscle tone present throughout Sensory Exam: normal sensation Extrem: General: normal to inspection and no edema Psych: Mental Status: mental status grossly normal Affect: normal affect H&P: Results Labs Labs: Short CBC 11/27/24 11/28/24 Range/Units 18:51 02:46 WBC 12.8 H 8.9 (4.5-10.0) K/mm3 Hgb 13.3 13.3 (12.0-15.0) g/dL Hct 40.6 40.3 (37.0-47.0) % Plt Count 227 213 (150-375) k/mm3 BMP 11/27/24 11/28/24 19:33 02:46 Sodium 135 L 131 L Potassium 3.2 L 3.3 L Chloride 102 97 L Carbon Dioxide 22 22 BUN 8 7 Creatinine 0.54 L 0.50 L Glucose 107 131 H Calcium 8.9 9.0 Cardiac Enzymes 11/27/24 11/27/24 11/28/24 Range/Units 19:33 23:10 02:47 Troponin I 0.057 H* 0.073 H* D 0.076 H* (0.000-0.034) ng/mL 11/28/24 Range/Units 08:55 Troponin I 0.055 H* D (0.000-0.034) ng/mL Liver Function 11/27/24 Range/Units 19:33 Total Bilirubin 0.7 (0.2-1.3) mg/dL AST 38 H (14-36) U/L ALT 24 (6-35) U/L Alkaline Phosphatase 77 (38-126) U/L Albumin 3.8 (3.5-5.1) g/dL Assessment and Plan Assessment and plan (1) Non-ST elevation [place] (NSTEMI): Code(s): I21.4 - Non-ST elevation (NSTEMI) myocardial infarction Status: Acute Assessment and Plan: * Troponins 0.057-->0.073-->0.076 * EKG showed NSR 75 bpm w/ST depression in II, III, aVF, V4, V5, V6, V2 * Pt remains on Heparin drip at this time. * Awaiting Cardiology consult. * Suspect not a true NSTEMI, but rather cardiac demand ischemia from current respiratory situation. * Remain in IMU * Continue Telemetry for now. * PRN pain and antiemetic meds. * Pt kept NPO for possible intervention from ER. * ECHO ordered (2) Leukocytosis: Code(s): D72.829 - Elevated white blood cell count, unspecified Status: Acute Assessment and Plan: * In setting of a persistent PNA, further complicated by history of chronic lung disease, PENNIE and Bronchiectasis. * Trending downward from 12.8--8.9. * Continue Rocephin and Azithromycin. * Pending Pulmonology evaluation. * Pt is a pt of Dr. Mayer. * Continue Guaifenesin. * Continue Advair * PRN Xopenex. * Blood cultures x2 ordered * Sputum culture ordered (3) Other pulmonary collapse: Code(s): J98.19 - Other pulmonary collapse Status: Acute Assessment and Plan: * As seen on CT Scan of chest, near complete collapse of LLL. * Pulmonology has been consulted. * Provide supportive care at this time * This is in the setting of chronic lung disease, chronic PENNIE, and acute Leukocytosis. * Incentive spirometry ordered. * ECHO ordered with bubble study (4) PENNIE (mycobacterium avium-intracellulare): Code(s): A31.0 - Pulmonary mycobacterial infection Status: Chronic Assessment and Plan: * See #2 (5) Chronic lung disease: Code(s): J98.4 - Other disorders of lung Status: Chronic Assessment and Plan: * See #2 Quality VTE Prophylaxis VTE prophylaxis: pharmacologic ordered Hospitalist MIPS Advance Care Plan I have confirmed that the patient's Advanced Care Plan is present, code status is documented, or surrogate decision maker is listed in patient medical record.: Yes Medication Reconciliation I have utilized all available resources to obtain, update and review the patients current medications (includes all prescriptions, OTC, herbals, cannabis, and nutritional supplements).: Yes
[2024-11-28] MEDS: HEPARIN SODIUM 5,000 UNITS/ML VIAL 2000 UNITS IV PUSH (09:59)
[2024-11-28] MEDS: HEPARIN SOD/D5W 100 UNITS/ML 25,000 UNITS/250 ML BAG 6 UNITS IV CONT (09:59)
[2024-11-28] MEDS: FLUTICASONE/SALMETEROL 115-21 MCG INHALER 1 PUFF 2 PUFF INHALATION (10:47)
--- NOTE | 2024-11-28 12:19 | P.CONCA_ITS ---
Assessment and Plan Assessment and plan (1) Elevated troponin: Code(s): R79.89 - Other specified abnormal findings of blood chemistry Status: Acute Plan 1. Elevated troponin 2. Near complete collapse of left lower lobe 3. PENNIE 4. Bronchiectasis 5. Asthma PLAN: -This does not appear to be an acute coronary syndrome, probably demand ischemia. Will stop Heparin drip. Does not need to be NPO from my standpoint. Echocardiogram has been ordered by primary team. If echo without significant abnormality, then no further cardiac workup anticipated. History of Present Illness History of Present Illness Consult date/time: 11/28/24 12:19 Requesting physician: Ligia Crowley APN-C Consult reason: Other (Elevated troponin) Reason For Visit: prtial collapsed lung/atelectasis/infection;NSTEMI Narrative: We are consulted for elevated troponin. This is a 74 year old female with asthma, PENNIE, bronchiectasis who has been having nausea, vomiting, diarrhea, poor appetite for the past few days. Developed a pain in her back. Evaluated by PCP who ordered CT scan which showed near complete collapse of LLL, therefore, sent to the ED. As part of the ER workup, troponins were obtained and noted to be mildly elevated. She denies any chest pain or other anginal symptoms. She denies shortness of breath and is otherwise resting comfortably. Workup shows troponins of 0.057, 0.073, 0.076, 0.055. Chest CTA shows chronic diffuse lung disease, likely chronic PENNIE infection, new near complete collapse of left lower lobe. EKGs show sinus rhythm, incomplete right bundle branch block, nonspecific STTW abnormality. Review of Systems 2 Review of Systems: All systems reviewed & are unremarkable except as noted in HPI and below (HPI) [facility] Past Medical History Medical History Endometrial thickening on ultrasound Postmenopausal bleeding History of vaginal delivery x 2 Bronchiectasis Age related osteoporosis Chronic GERD Arthritis Asthma Surgical History Surgical History History of hysteroscopy [place] teeth removed History of dilation and curettage H/O hernia repair Family History Family History Father Hypertension Family history of coronary artery disease Mother Asthma Hypertension Heart disease Cerebrovascular accident Sibling Asthma Other Family history of allergic disorder Family history of cardiovascular disease Family history of malignant neoplasm Social History Social History Smoking status: Never smoker Alcohol intake: never Substance use: never Substance use type: does not use Do You Feel Safe in your Home?: Yes Lack of Transportation: No Lack of Food: Never True Current Housing: I Have Housing Concerned About Future Housing: No Difficulty Paying Gas/Electric Bills: No Difficulty Paying for Meds: No Currently Unemployed: No Education: High School Diploma/GED Difficulty w/ Childcare or Family Care: No Living arrangements: with family Additional living arrangements comments: SON Spiritual care concerns: No Meds Home Medications and Allergies Home Medications ?Medication ?Instructions ?Recorded ?Confirmed ?Type calcium carbonate (Tums) 200 mg PO TID PRN Indigestion 11/04/21 11/28/24 History ibuprofen 200 mg tablet (Advil) 400 mg PO Q6H PRN Pain 11/04/21 11/28/24 History levalbuterol tartrate 45 1 puff inhalation Q6H PRN Dyspnea 11/04/21 11/28/24 History mcg/actuation aerosol inhaler (Xopenex HFA) diltiazem HCl 90 mg tablet 45 mg PO BID 02/21/24 11/28/24 History fluticasone 250 mcg-salmeterol 50 See Rx Instructions .Route 08/31/24 11/28/24 Rx mcg/dose blistr powdr for .COMPLEX 90 days #180 ea inhalation Allergies Allergy/AdvReac Type Severity Reaction Status Date / Time No Known Allergies Allergy Mild Verified 11/27/24 18:50 Vital Signs Vital Signs - 24 hr 11/27/24 18:42 11/27/24 18:54 11/27/24 18:54 Temperature 36.6 C Pulse Rate 100 84 Respiratory Rate 20 21 H Blood Pressure 162/88 H Pulse Oximetry 96 98 98 Oxygen Delivery Room Air Autopap 11/27/24 18:55 11/27/24 20:57 11/27/24 21:00 Temperature Pulse Rate 80 79 82 Respiratory Rate 21 H 15 18 Blood Pressure 158/95 H Pulse Oximetry 95 97 100 Oxygen Delivery 11/27/24 21:26 11/27/24 21:51 11/27/24 22:39 Temperature Pulse Rate 86 83 86 Respiratory Rate 21 H 20 19 Blood Pressure 153/97 H Pulse Oximetry 95 97 96 Oxygen Delivery 11/27/24 23:02 11/27/24 23:15 11/27/24 23:31 Temperature Pulse Rate 80 73 89 Respiratory Rate 21 H 20 18 Blood Pressure 153/96 H Pulse Oximetry 95 93 Oxygen Delivery 11/28/24 02:16 11/28/24 02:52 11/28/24 03:00 Temperature 36.3 C L Pulse Rate 79 58 L 60 Respiratory Rate 18 Blood Pressure 142/81 H Pulse Oximetry 96 Oxygen Delivery 11/28/24 04:00 11/28/24 06:00 11/28/24 07:36 Temperature 36.3 C L 37.0 C Pulse Rate 62 68 73 Respiratory Rate 18 18 Blood Pressure 125/74 126/43 L Pulse Oximetry 92 96 Oxygen Delivery 11/28/24 10:47 11/28/24 11:46 Temperature 36.6 C Pulse Rate 70 Respiratory Rate 18 Blood Pressure 92/50 L Pulse Oximetry 93 93 Oxygen Delivery Room Air Exam 2 Const: General: comfortable and no acute distress Eyes: General: appearance normal, both eyes and all related structures S clera: sclerae normal Resp: Effort & Inspection: normal respiratory effort Cardio: Rate: regular rate Rhythm: regular rhythm Heart sounds: no murmurs Skin: General skin exam: normal color Psych: Mental Status: mental status grossly normal Affect: normal affect Results Labs and Meds 11/28/24 02:46 11/28/24 02:46 Lab results: Cardiac Enzymes 11/27/24 11/27/24 11/28/24 Range/Units 19:33 23:10 02:47 AST 38 H (14-36) U/L Troponin I 0.057 H* 0.073 H* D 0.076 H* (0.000-0.034) ng/mL 11/28/24 Range/Units 08:55 AST (14-36) U/L Troponin I 0.055 H* D (0.000-0.034) ng/mL Coagulation 11/28/24 11/28/24 Range/Units 02:46 08:55 PT 14.7 (11.1-14.7) Seconds APTT 28.1 63.9 H (22.3-36.8) Seconds Lipids 11/28/24 Range/Units 02:46 Triglycerides 74 (<150) mg/dL Cholesterol 201 H (0-200) mg/dL CBC 11/27/24 11/28/24 Range/Units 18:51 02:46 WBC 12.8 H 8.9 (4.5-10.0) K/mm3 RBC 4.28 4.36 (4.2-5.4) M/mm3 Hgb 13.3 13.3 (12.0-15.0) g/dL Hct 40.6 40.3 (37.0-47.0) % Plt Count 227 213 (150-375) k/mm3 Lymph # (Auto) 2.11 1.47 (0.9-3.2) K/mm3 [place] # (Auto) 1.0 H 0.8 H (0.1-0.6) K/mm3 Eos # (Auto) 1.5 H 0.6 H (0-0.3) K/mm3 Baso # (Auto) 0.1 0.1 (0.0-0.1) K/mm3 Comprehensive Metabolic Panel 11/27/24 11/28/24 Range/Units 19:33 02:46 Sodium 135 L 131 L (137-145) mmol/L Potassium 3.2 L 3.3 L (3.4-5.0) mmol/L Chloride 102 97 L (98-107) mmol/L Carbon Dioxide 22 22 (22-30) mmol/L BUN 8 7 (7-17) mg/dL Creatinine 0.54 L 0.50 L (0.7-1.0) mg/dL Glucose 107 131 H (65-110) mg/dL Calcium 8.9 9.0 (8.4-10.2) mg/dL AST 38 H (14-36) U/L ALT 24 (6-35) U/L Alkaline Phosphatase 77 (38-126) U/L Total Protein 7.0 (6.3-8.2) g/dL Albumin 3.8 (3.5-5.1) g/dL Intake and Output 11/27/24 11/28/24 11/28/24 23:59 07:59 15:59 Intake Total 50 35.5 Output Total 400 Balance 50 -364.5 Intake: IV 50 35.5 Heparin Sod/D5w 100 Units/ml 25 35.5 ,000 units In 250 ml @ 600 UNITS/HR 6 mls/hr IV CONT .Q24H [facility] Rx#:[id number] cefTRIAXone 1 GM/NS 50 ML 1 gm 50 In 50 ml @ 100 mls/hr IVPB ONCE STA Rx#:[id number] Output: Urine 400 Other: # Unmeasured Voids 0 Patient Weight 11/28/24 23:59 Weight 46.5 kg
--- NOTE | 2024-11-28 12:51 | PM.CNPUL ---
Assessment and Plan Assessment and plan (1) Other pulmonary collapse: Code(s): J98.19 - Other pulmonary collapse Status: Acute Assessment and Plan: patient with a history of post infectious bronchiectasis and history of colonization with PENNIE, non fumigatus Aspergillus and Pseudomonas resistant to ciprofloxacin and Levaquin. Patient presents now with left lower lobe collapse new since chest x-ray on 05/18/[address] scan on 10/18/2023. she developed back pain that is improved after treatment with antibiotics. Plan: I will treat the patient for bacterial infection with meropenem and azithromycin. Her Pseudomonas sensitive to meropenem and this will also give us additional anaerobic coverage compared to cefepime. Continue azithromycin for atypicals. Her nasal MRSA swab is negative.. COVID, influenza, RSV RT PCR studies negative. I will send the extended respiratory pathogen panel. I will send urine for Legionella, urine for pneumococcus and serum mycoplasma IgM. I will induce sputums for AFB q.day x3. To enhance sputum expectoration I will place the patient on guaifenesin 1200 mg p.o. b.i.d., DuoNebs q.4 hours while awake, Cornet flutter valve, vest treatment t.i.d.. I will repeat a chest x-ray in the morning. will follow with you. (2) Asthma: Code(s): J45.909 - Unspecified asthma, uncomplicated Status: Acute Assessment and Plan: Currently there is no evidence of an asthma exacerbation. Plan: Patient will be on DuoNebs q.4 hours while awake and budesonide 500 b.i.d. and will monitor. History of Present Illness History of Present Illness Consult date: 11/28/24 Chief complaint: prtial collapsed lung/atelectasis/infection;NSTEMI Narrative: 11/28/2024: This is a new pulmonary consult for pneumonia. 74-year-old with a history of asthma, post infectious bronchiectasis, colonization with PENNIE, none fumigatus Aspergillus and Pseudomonas patient is followed in the [facility] in last seen on 08/31/2024: 6 month follow-up regarding asthma, PENNIE, and bronchiectasis. 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 She was decreased from 500 dose last visit due to good asthma control. She reports her asthma has been somewhat stable. She has had some increased GONG over the past week, unsure if due to weather change. She has been slightly more active with painting as well, using low VOC. She reports unchanged minimal productive cough mostly clear, sometimes dark frazier but no hemoptysis, fever, or night sweats. Denies wheezing or chest pains/tightness. She is maintained on Advair 250 and Xopenex PRN. She feels no difference going to the lower dose. Rescue use varies. Asthma triggers include dust, perfumes and she does not wear any perfumes, chemicals and musty smells. She has never seen an retina subspecialist.? She was diagnosed with asthma approximately 20 years ago.? Her mother and a brother have asthma. She is a never smoker.? She was exposed to secondhand smoke from her father but none since then.? 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 She denies sandblasting, welding, asbestos were, professional painting, or sandblasting. ACT score 18, previously was 20. Plan: Continue Advair 251 puff b.i.d. if symptoms worsen increased to 500 b.i.d.. Regarding bronchiectasis secretion mobilization with echo Eric of 2 to 3 times a day. Regarding PENNIE she had no evidence of active infection. Sputum on 04/13/2020 3- for AFB but with Pseudomonas resistant to ciprofloxacin and levofloxacin. At baseline patient tells me that she produces phlegm 0-1 time a day, 2 to 3 times a week. She has no hemoptysis. She does not wheeze. And has no breathing limitations due to her asthma and bronchiectasis. On 11/22/2024 patient was at her baseline. On 11/23/2024 patient developed vomiting and diarrhea and describes this as having a stomach virus. She had no change in her respiratory status on 11/23. On 11/24 she felt flushed but had no fever and had no new respiratory complaints. On 11/26/2024 she developed left-sided back pain and went to her PCP and he noticed decreased breath sounds on the left an order to CT scan. She again had no change in her respiratory status. On 11/27/2024 CT scan of the chest showed biapical scarring without change from 10/18/2023, right upper lobe tree-in-bud infiltrates improved since 10/18/2023, lingular infiltrates improved since 10/18/2023 and new consolidation of the entire left lower lobe New since 10/18/2023. Patient instructed to go to the emergency room and presented to the emergency department on 11/27/2024 with shortness of breath. Blood pressure 162/88, heart rate 100, respirations 20, room air saturation 96%. She was afebrile. White blood cell count 12.8, creatinine 0.54. COVID, influenza, RSV RT PCR study negative. Patient was started on ceftriaxone and azithromycin. 11/28/24: currently the patient tells me she has no Fever, chills, rigors. Her left-sided back pain is 80% better. She has no shortness of breath. She is on room air with saturations 96%. She is making no phlegm and no hemoptysis. DATA 10/13/2020: QuantiFERON gold negative Bronchoscopy on 11/19/[address] Tomlin showed mucus plugging.? Cultures grew PENNIE, non fumigatus Aspergillus and Pseudomonas.? Multiple antibiotics were recommended and the patient wanted a 2nd opinion. Chest CT 10/18/23 - Findings consistent with acute on chronic small airways infectious process, such as PENNIE, with distribution detailed above. Extent of disease involvement is decreased as compared to prior exam. Prior PFTs with normal FVC, FEV1 and FEV1: FVC ratio, normal TLC with a mildly decreased DLCO. 04/11/2023: PFTs: FVC 2.19 L, 80% predicted, FEV1 1.84 L, 87% predicted.? FEV1:? FVC ratio 84%.? RV 3.08 L, 135% predicted.? TLC 5.38 L, 106% predicted.? DLCO 15.06, 62% predicted.? Weight was on 112 lb. 09/20/2022: FVC 2.46 L, 89% predicted.? FEV1 1.97 L, 93% predicted.? FEV1:? FVC ratio 80%. 04/05/2022: FVC 2.40 L, 83% predicted.? FEV1 1.76 L, 81% predicted.? FEV1: FVC ratio 73%. Review of Systems Constitutional: Constitutional: Reports no additional constitutional complaints Eyes: Eyes: Reports no additional eye complaints ENT: Reports system reviewed and no additional complaints, except as documented Cardiovascular: Cardiovascular: Reports no additional cardiovascular complaints Respiratory: Respiratory: Reports no additional respiratory complaints Gastrointestinal: Gastrointestinal: Reports no additional gastrointestinal complaints Musculoskeletal: Musculoskeletal: Reports no additional musculoskeletal complaints Neurologic: Reports system reviewed and no additional complaints, except as documented Psychiatric: Psychiatric: Reports no additional psychiatric complaints Endocrine: Endocrine: Reports no additional endocrine complaints Hematologic/Lymphatic: Hematologic/Lymphatic: Reports no additional hematologic/lymphatic complaints Allergic/Immunologic: Allergic/Immunologic: Reports no additional allergic/immunologic complaints FOR[facility]LY [facility] Past Medical History Medical History (Updated 11/28/24 @ 17:05 by Jhon Dickey MD) Endometrial thickening on ultrasound Postmenopausal bleeding History of vaginal delivery x 2 Bronchiectasis Age related osteoporosis Chronic GERD Arthritis Asthma Surgical History Surgical History History of hysteroscopy [place] teeth removed History of dilation and curettage H/O hernia repair Family History Family History Father Hypertension Family history of coronary artery disease Mother Asthma Hypertension Heart disease Cerebrovascular accident Sibling Asthma Other Family history of allergic disorder Family history of cardiovascular disease Family history of malignant neoplasm Social History Social History Smoking status: Never smoker Alcohol intake: never Substance use: never Substance use type: does not use Do You Feel Safe in your Home?: Yes Lack of Transportation: No Lack of Food: Never True Current Housing: I Have Housing Concerned About Future Housing: No Difficulty Paying Gas/Electric Bills: No Difficulty Paying for Meds: No Currently Unemployed: No Education: High School Diploma/GED Difficulty w/ Childcare or Family Care: No Living arrangements: with family Additional living arrangements comments: SON Spiritual care concerns: No Meds Home Medications and Allergies Home Medications ?Medication ?Instructions ?Recorded ?Confirmed ?Type calcium carbonate (Tums) 200 mg PO TID PRN Indigestion 11/04/21 11/28/24 History ibuprofen 200 mg tablet (Advil) 400 mg PO Q6H PRN Pain 11/04/21 11/28/24 History levalbuterol tartrate 45 1 puff inhalation Q6H PRN Dyspnea 11/04/21 11/28/24 History mcg/actuation aerosol inhaler (Xopenex HFA) diltiazem HCl 90 mg tablet 45 mg PO BID 02/21/24 11/28/24 History fluticasone 250 mcg-salmeterol 50 See Rx Instructions .Route 08/31/24 11/28/24 Rx mcg/dose blistr powdr for .COMPLEX 90 days #180 ea inhalation Allergies Allergy/AdvReac Type Severity Reaction Status Date / Time No Known Allergies Allergy Mild Verified 11/27/24 18:50 Vital Signs Vital Signs - 24 hr 11/27/24 18:42 11/27/24 18:54 11/27/24 18:54 Temperature 36.6 C Pulse Rate 100 84 Respiratory Rate 20 21 H Blood Pressure 162/88 H Pulse Oximetry 96 98 98 Oxygen Delivery Room Air Autopap 11/27/24 18:55 11/27/24 20:57 11/27/24 21:00 Temperature Pulse Rate 80 79 82 Respiratory Rate 21 H 15 18 Blood Pressure 158/95 H Pulse Oximetry 95 97 100 Oxygen Delivery 11/27/24 21:26 11/27/24 21:51 11/27/24 22:39 Temperature Pulse Rate 86 83 86 Respiratory Rate 21 H 20 19 Blood Pressure 153/97 H Pulse Oximetry 95 97 96 Oxygen Delivery 11/27/24 23:02 11/27/24 23:15 11/27/24 23:31 Temperature Pulse Rate 80 73 89 Respiratory Rate 21 H 20 18 Blood Pressure 153/96 H Pulse Oximetry 95 93 Oxygen Delivery 11/28/24 02:16 11/28/24 02:52 11/28/24 03:00 Temperature 36.3 C L Pulse Rate 79 58 L 60 Respiratory Rate 18 Blood Pressure 142/81 H Pulse Oximetry 96 Oxygen Delivery 11/28/24 04:00 11/28/24 06:00 11/28/24 07:36 Temperature 36.3 C L 37.0 C Pulse Rate 62 68 73 Respiratory Rate 18 18 Blood Pressure 125/74 126/43 L Pulse Oximetry 92 96 Oxygen Delivery 11/28/24 10:47 11/28/24 11:46 Temperature 36.6 C Pulse Rate 70 Respiratory Rate 18 Blood Pressure 92/50 L Pulse Oximetry 93 93 Oxygen Delivery Room Air Exam Const: General: cooperative, healthy appearing and comfortable Orientation/consciousness: oriented to person, oriented to place and oriented to time HENMT: Head: normal to inspection Ears: hearing grossly normal bilaterally Eyes: General: appearance normal, both eyes and all related structures Neck: Neck: normal visual inspection Chest: Chest palpation & inspection: normal inspection of the chest Resp: Effort & Inspection: normal respiratory effort and able to speak in complete sentences Auscultation: no crackles, no rales, no rhonchi, no wheezes and diminished lung sounds Other: Left base Cardio: Jugular venous distension: no JVD GI: Inspection: normal to inspection GI Palp: No abdominal tenderness Skin: General skin exam: normal color Neuro: General: oriented to person, oriented to place and oriented to time Extrem: General: normal to inspection Psych: Appearance: grossly normal Results Laboratory Findings 11/28/24 02:46 11/28/24 02:46 ABG, PT/INR, D-dimer: PT/INR, D-dimer PT 14.7 Seconds (11.1-14.7) 11/28/24 02:46 INR 1.1 11/28/24 02:46 D-Dimer 0.56 ug/mL (<0.48) H 11/27/24 21:14 Abnormal lab findings: Abnormal Labs 11/27/24 11/27/24 11/27/24 18:51 19:33 21:14 WBC 12.8 H MPV 11.1 H Lymph % (Auto) 16.4 L Eos % (Auto) 11.9 H [place] # (Auto) 1.0 H Eos # (Auto) 1.5 H Abs Immat Gran (auto) 0.04 H Absolute Neuts (auto) 8.1 H APTT D-Dimer 0.56 H Sodium 135 L Potassium 3.2 L Chloride Creatinine 0.54 L Glucose Magnesium AST 38 H Troponin I 0.057 H* Cholesterol 11/27/24 11/28/24 11/28/24 23:10 02:46 02:47 WBC MPV 11.3 H Lymph % (Auto) 16.5 L Eos % (Auto) 6.2 H [place] # (Auto) 0.8 H Eos # (Auto) 0.6 H Abs Immat Gran (auto) Absolute Neuts (auto) APTT D-Dimer Sodium 131 L Potassium 3.3 L Chloride 97 L Creatinine 0.50 L Glucose 131 H Magnesium 1.5 L AST Troponin I 0.073 H* D 0.076 H* Cholesterol 201 H 11/28/24 08:55 WBC MPV Lymph % (Auto) Eos % (Auto) [place] # (Auto) Eos # (Auto) Abs Immat Gran (auto) Absolute Neuts (auto) APTT 63.9 H D-Dimer Sodium Potassium Chloride Creatinine Glucose Magnesium AST Troponin I 0.055 H* D Cholesterol Diagnostic Findings Additional studies: ITS Impressions Chest X-Ray 11/27/24 19:25 IMPRESSION: Dense consolidation within the left lung base likely post obstructive as detected on recent CT examination EXAMINATION:CT diagnostic chest wo con DATE: 11/27/2024 16:44 INDICATION: Bronchiectasis. TECHNIQUE: Computed tomography (CT) of the chest was performed without intravenous contrast. Automated exposure control and iterative reconstruction technique were employed. The dose-length product (DLP) was 134.41 mGy-cm. COMPARISON: Chest CT 10/18/23 FINDINGS: There is scarring at the lung apices. There is bronchiectasis in the lungs, worst in right middle lobe and lingula. There are centrilobular nodules in the upper lobes, right middle lobe, and right lower lobe with a lower lung predominance. There is near complete collapse of left lower lobe. There is mucous plugging in left lower lobe. The heart size is normal. No pericardial effusion. There is mild thoracic spondylosis and severe cervical and lumbar spondylosis. IMPRESSION: 1. 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 2. New near-complete collapse of left lower lobe.
[2024-11-28 14:39] LABS: MRSA (PCR) NOT DETECTED (NOT DETECTE)
[2024-11-28] MEDS: MEROPENEM 1 GM/NS 100 ML 1 GM/100 ML BAG IVPB ×2 (17:08→21:58)
[2024-11-28] MEDS: BUDESONIDE RESPULE NEB 0.5 MG/2 ML AMP INHALATION (21:05)
[2024-11-28] MEDS: IPRATROPIUM 0.5 MG/ALBUTEROL SULFATE 2.5 MG AMPUL.NEB 3 ML INHALATION (21:05)
[2024-11-28] MEDS: AZITHROMYCIN 500 MG/NS 250 ML 500 MG/250 ML BAG 250 MG IVPB (22:58)
[2024-11-29] VITALS (12 sets, daily range): BP systolic 100–114; BP diastolic 52–60; PULSE 64–89; RESP 12–20; TEMP 36.5–36.8; O2SAT 94–96
--- NOTE | 2024-11-29 | ECHO_ITS ---
Patient Info Name: Dawn Burgess Age: 74 years : 1950 Gender: Female Ht: 64 in Wt: 101 lbs BSA: 1.43 m2 HR: 67 bpm BP: 95 / 60 mmHg Heart Rhythm: Sinus Rhythm Technical Quality: Good Exam Date: 11/29/2024 10:55 AM Exam Location: Echo Lab Exam Room: Patient Status: Inpatient Admit Date: 11/28/2024 Staff Ordering Physician: Ligia Crowley Sales Financial Analyst: Gwendolyn Maldonado RDCS Attending Provider: Jayshree Soares APRN Referring Physician: Carline DELAROSA; Exam Type: CA echo doppler color flow Study Info Indications - Near syncope Complete two-dimensional, color flow and Doppler transthoracic echocardiogram is performed. Summary 1. Left ventricular chamber dimension is normal. 2. Left ventricular systolic function is normal, estimated at 50-55%. 3. There is hypokinesis of the anterior wall, anteroseptal wall. 4. The left ventricular diastolic function is grade I diastolic dysfunction. 5. Right ventricular systolic function is normal. 6. There is mild aortic valve regurgitation. 7. There is mild mitral valve regurgitation. 8. There is mild tricuspid valve regurgitation. Left Ventricle There is hypokinesis of the anterior wall, anteroseptal wall. Left ventricular chamber dimension is normal. Left ventricular systolic function is normal, estimated at 50-55%. There is no increased left ventricular wall thickness. The left ventricular diastolic function is grade I diastolic dysfunction. Right Ventricle Right ventricular chamber dimension is normal. Right ventricular systolic function is normal. Left Atria Left atrial chamber dimension is normal. Right Atria Right atrial chamber dimension is normal. Atrial Septum Intact interatrial septum visualized by color flow imaging. Aortic Valve The aortic valve is trileaflet. There is mild aortic valve sclerosis. There is no aortic valve stenosis. There is mild aortic valve regurgitation. Pulmonic Valve The pulmonic valve is not well visualized. Mitral Valve There is mild mitral valve regurgitation. Tricuspid Valve There is mild tricuspid valve regurgitation. Pericardium/Pleural There is no pericardial effusion. Inferior Vena Cava Dilated inferior vena cava with >50% collapse upon inspiration consistent with elevated right atrial pressure, 8 mmHg. Aorta The aortic root size at the sinus of Valsalva is normal. Left Ventricular Outflow Tract Name Value Normal LVOT 2D LVOT Diameter 2.0 cm LVOT Doppler LVOT Peak Gradient 2 mmHg LVOT Mean Gradient 1 mmHg LVOT VTI 13 cm LVOT VTI/AV VTI Ratio 0.6 LVOT Stroke Volume 41 ml LVOT CO 2.4 l/min LVOT CI 1.7 l/min/m2 Pulmonic Valve Name Value Normal PV Doppler PV Peak Gradient 2 mmHg PV Regurgitation Doppler SD Peak End Diastolic Velocity 77 cm/s Mitral Valve Name Value Normal MV Doppler MV Peak Gradient 3 mmHg MV Mean Gradient 1 mmHg MV Decel [place] 357 cm/s2 MV PHT 55 ms MV Area (PHT) 4.0 cm2 4.0-5.0 MV Area (Cont Eq VTI) 1.7 cm2 MV Regurgitation Doppler MR Peak Gradient 56 mmHg MV Diastolic Function MV E Peak Velocity 67 cm/s MV A Peak Velocity 59 cm/s MV E/A 1.2 MV Decel Time 189 ms MV Annular TDI MV E/e' (Septal) 9.2 <=8.0 Tricuspid Valve Name Value Normal TV Regurgitation Doppler TR Peak Velocity 272 cm/s TR Peak Gradient 29 mmHg Estimated PAP/RSVP RA Pressure 8 mmHg <=5 PA Systolic Pressure 37 mmHg <36 RV Systolic Pressure 37 mmHg <36 Aortic Valve Name Value Normal AV Doppler AV Peak Velocity 98 cm/s AV Peak Gradient 4 mmHg AV Mean Gradient 2 mmHg AV VTI 20 cm AV Area (Cont Eq VTI) 2.1 cm2 >=3.0 AV Area (Cont Eq Clint) 2.4 cm2 AV Regurgitation 2D LVOT Area 3.3 cm2 AV Regurgitation Doppler AR Decel Time 2,784 ms AR Decel [place] 158 cm/s2 AR PHT 807 ms Ventricles Name Value Normal LV Dimensions 2D/MM IVS Diastolic Thickness (2D) 0.5 cm 0.6-1.0 LVID Diastole (2D) 4.4 cm 3.8-5.2 LVIW Diastolic Thickness (2D) 0.5 cm 0.6-0.9 LVID Systole (2D) 3.1 cm 2.2-3.5 LVOT Diameter 2.0 cm LV Mass (2D Cubed) 65.40 g 67.00-162.00 LV Mass Index (2D Cubed) 46 g/m2 43-95 Relative Wall Thickness (2D) 0.23 LV Fractional Shortening/Ejection Fraction 2D/MM LV Fractional Shortening (2D) 29 % 27-45 LV EF (2D [place]) 56 % 54-74 LV Diastolic Volume (4C MOD) 103 ml LV EF (4C MOD) 63 % LV Diastolic Length (4C) 7.8 cm LV Systolic Length (4C) 6.7 cm LV Stroke Volume (4C MOD) 65 ml Atria Name Value Normal LA Dimensions LA Volume (4C A-L) 43 ml RA Dimensions RA Area (4C) 11.4 cm2 <=18.0 Report Signatures
[2024-11-29 04:38] LABS: Basophils Absolute Auto 0.1 K/mm3 (0.0-0.1); Basophils Percent Auto 0.6 % (0.2-1.2); Eosinophils Absolute Auto 1.1 K/mm3 (0-0.3); Eosinophils Percent Auto 13.7 % (0-4.4); Hematocrit 36.4 % (37.0-47.0); Hemoglobin 12.2 g/dL (12.0-15.0); Immature Granulocyte Absolute 0.01 K/mm3 (0.00-0.031); Immature Granulocyte Percent A 0.1 % (0-0.5); Lymphocytes Percent Auto 27.2 % (18.3-44.2); Mean Corpuscular HGB Conc 33.5 g/dl (32-36); Mean Corpuscular Hemoglobin 30.9 pg (26-34); Mean Corpuscular Volume 92.2 fl (80-100); Mean Platelet Volume 11.5 fl (7.4-10.4); Monocytes Absolute Auto 0.7 K/mm3 (0.1-0.6); Monocytes Percent Auto 8.3 % (2.6-8.5); Neutrophils Absolute Auto 4.1 K/mm3 (1.3-6.7); Neutrophils Percent Auto 50.1 % (45.5-73.1); Platelet Count Result 207 k/mm3 (150-375); Red Blood Count 3.95 M/mm3 (4.2-5.4); Red Cell Distribution Width 12.5 % (11.5-14.5); White Blood Count 8.1 K/mm3 (4.5-10.0)
[2024-11-29 04:54] LABS: Alanine Aminotransferase 21 U/L (6-35); Albumin Level 3.2 g/dL (3.5-5.1); Alkaline Phosphatase 74 U/L (38-126); Anion Gap 6 mmol/L (4-12); Aspartate Amino Transferase 37 U/L (14-36); Bilirubin,Total 0.6 mg/dL (0.2-1.3); Blood Urea Nitrogen 8 mg/dL (7-17); Calcium 8.7 mg/dL (8.4-10.2); Carbon Dioxide 26 mmol/L (22-30); Chloride 100 mmol/L (98-107); Estimated CRCL calculation 46 ml/min; Estimated Glomerular Filt Rate > 60; Glucose 98 mg/dL (65-110); Potassium 3.5 mmol/L (3.4-5.0); Sodium 132 mmol/L (137-145)
[2024-11-29] MEDS: SODIUM CHLOR 3% 15 ML NEB (RESPIRATORY THERAPY) 6 ML INHALATION (04:54)
--- NOTE | 2024-11-29 05:09 | PCRCNOTE ---
Sputum induction, treatment given, not able to obtain
[2024-11-29] MEDS: MEROPENEM 1 GM/NS 100 ML 1 GM/100 ML BAG IVPB ×3 (06:47→21:32)
[2024-11-29] MEDS: ATORVASTATIN 40 MG TABLET PO (08:42)
[2024-11-29] MEDS: METOPROLOL TARTRATE 25 MG TABLET PO ×2 (08:42→20:22)
[2024-11-29] MEDS: guaiFENesin 12 HR 600 MG TABCR 1200 MG PO ×2 (08:42→20:22)
[2024-11-29] MEDS: dilTIAZem HCL 30 MG TABLET PO ×2 (08:43→20:23)
[2024-11-29] MEDS: DILTIAZEM 1 EACH PO ×2 (08:44→20:24)
--- NOTE | 2024-11-29 09:57 | P.PNIM_ITS ---
Progress Note: A&P Assessment and Plan (1) Bronchiectasis: Qualifiers: Bronchiectasis type: uncomplicated Qualified Code(s): J47.9 - Bronchiectasis, uncomplicated Code(s): J47.9 - Bronchiectasis, uncomplicated Status: Acute Assessment and Plan: * Chest x-ray showing dense consolidation within the left lung base likely post obstructive * Chest CT shown chronic diffuse lung disease likely chronic infection such as PENNIE, near complete collapse of left lower lobe * Pep therapy with cornet valve and vest TID * Pulmonology following * Currently on meropenem and azithromycin * Continue Mucinex 1200 mg * Continue incentive spirometry * Mycoplasma, urine strep, urine Legionella, and respiratory pathogen panel ordered * Okay to move out of IMU today to regular med/surg bed (2) PENNIE (mycobacterium avium-intracellulare): Code(s): A31.0 - Pulmonary mycobacterial infection Status: Chronic Assessment and Plan: See above (3) Elevated troponin: Code(s): R79.89 - Other specified abnormal findings of blood chemistry Status: Acute Assessment and Plan: * Troponin 0.057> 0.073> 0.076> 0.055 * Cardiology consulted * Likely demand ischemia * Heparin drip was discontinued (4) Asthma: Code(s): J45.909 - Unspecified asthma, uncomplicated Status: Acute Assessment and Plan: * Continue DuoNebs * Pulmonology following Time Spent With Patient Time with patient: 25 - 35 minutes Subjective Date/time seen: 11/29/24 09:57 Interval history: Interval history: This is a 74-year-old female presented to the hospital on 11/28/2024 with left posterior thoracic pain worse with inspiration and shortness a breath. Workup in the hospital included a chest x-ray which shown dense consolidation within the left lung base likely postobstructive. Chest CT shown chronic diffuse lung disease, likely chronic infection such as Mycobacterium avium intracellulare (PENNIE), near new complete collapse of left lower. Initial labs showed a white blood cell count of 12.8, eosinophil 11.9%, D-dimer is 0.56, sodium 135, potassium 3.2, AST 38, troponin 0.057> 0.073> 0.076> 0.055. Respiratory panel was negative. Blood cultures were obtained and pending. EKG showed sinus rhythm with a rate of 76, QTC 473. Patient is currently on meropenem and azithromycin. Pulmonology was consulted and recommending pep therapy with coronary flutter valve and best treatment t.i.d.. She was also started on DuoNebs and Mucinex 1200 mg p.o. b.i.d. Subjective: Patient denies any new complaints today. Labs and imaging reviewed. Review of Systems Review of Systems: All systems reviewed & are unremarkable except as noted in HPI and below Exam Narrative: General: In no acute distress, well nourished Head: atraumatic, no encephalopathy Eyes: EOMI, PERRLA, sclera clear ENT: moist mucous membranes, nasal passages clear Neck: supple, no JVD, no adenopathy, trachea midline Cardiac: Normal S1 and S2. No murmur, gallops or friction rubs, peripheral pulses intact. Respiratory: Rhonchi and wheezing throughout all lung viramontes bilaterally, no adventitious lung sounds, currently on room air, reports productive cough Gastrointestinal: soft, non-distended, non-tender, normoactive bowel sounds. : voiding without difficulty. Extremities: moves all extremities well, no edema Skin: clean, dry, intact. No wounds or lesions. Neuro: Alert and oriented x4, cranial nerves intact, no neuro deficits. Psych: normal mood, normal affect, interactive Objective Data Vital Signs Vital Signs: Vital Signs - 24 hr 11/28/24 10:00 11/28/24 10:47 11/28/24 11:46 Temperature 98 F Pulse Rate 81 70 Respiratory Rate 18 Blood Pressure 92/50 L Pulse Oximetry 93 93 Oxygen Delivery Room Air 11/28/24 12:00 11/28/24 14:00 11/28/24 15:48 Temperature 98.1 F Pulse Rate 86 83 79 Respiratory Rate 16 Blood Pressure 99/53 L Pulse Oximetry 93 Oxygen Delivery 11/28/24 16:00 11/28/24 18:00 11/28/24 20:00 Temperature Pulse Rate 81 84 89 Respiratory Rate 18 Blood Pressure Pulse Oximetry 93 Oxygen Delivery Room Air 11/28/24 20:00 11/28/24 21:05 11/28/24 21:15 Temperature Pulse Rate 89 88 88 Respiratory Rate 18 18 Blood Pressure Pulse Oximetry Oxygen Delivery 11/28/24 21:57 11/28/24 22:00 11/28/24 23:33 Temperature 97.9 F Pulse Rate 68 82 16 L Respiratory Rate 18 Blood Pressure 106/51 L Pulse Oximetry 94 Oxygen Delivery 11/29/24 05:08 11/29/24 08:00 11/29/24 08:00 Temperature 98.0 F Pulse Rate 88 64 Respiratory Rate 18 12 Blood Pressure 105/60 Pulse Oximetry 96 Oxygen Delivery Room Air Intake/Output Intake/Output: Intake & Output 11/26/24 11/27/24 11/28/24 11/29/24 23:59 23:59 23:59 23:59 Intake Total 535.5 420 Output Total 400 Balance 135.5 420 Meds/Results Medications: Active Medications Generic Name Dose Route Start Last Admin Trade Name Freq PRN Reason Stop Dose Admin Acetaminophen 650 mg 11/27/24 23:45 Acetaminophen 325 Mg Tablet PO Q4H PRN Mild Pain (1-3) or Fever Hydrocodone Bitart/Acetaminophen 1 tab 11/27/24 23:45 Hydrocodone/Acetaminophen (*Crx) 5-325 Mg Tablet PO Q4H PRN Pain Rated 4-6 Albuterol/Ipratropium 3 ml 11/28/24 20:00 11/28/24 21:05 Ipratropium 0.5 Mg/Albuterol Sulfate 2.5 Mg Ampul.Neb 3 Ml INHALATION 3 ml [id number] PAT Administration Atorvastatin Calcium 40 mg 11/28/24 09:00 11/29/24 08:42 Atorvastatin 40 Mg Tablet PO 40 mg DAILY PAT Administration Budesonide 0.5 mg 11/28/24 20:00 11/28/24 21:05 Budesonide Respule Neb 0.5 Mg/2 Ml Amp INHALATION 0.5 mg Q12HRT PAT Administration Calcium Carbonate 200 mg 11/28/24 07:37 Calcium Carbonate (Tums) 500 Mg (200 Mg Elemental) PO TID PRN Indigestion Diltiazem HCl 30 mg 11/28/24 09:00 11/29/24 08:43 Diltiazem Hcl 30 Mg Tablet PO 30 mg Q12HR PAT Administration Guaifenesin 1,200 mg 11/28/24 01:55 11/29/24 08:42 Guaifenesin 12 Hr 600 Mg Tabcr PO 1,200 mg Q12HR PAT Administration Azithromycin 500 mg in 250 mls @ 250 mls/hr 11/28/24 23:00 02/12/25 23:00 Zithromax IVPB Infused Q24H PAT Infusion Meropenem 1 gm in 100 mls @ 200 mls/hr 11/28/24 13:00 11/29/24 06:47 IVPB 100 mls/hr Q8HR PAT Administration Ibuprofen 400 mg 11/28/24 07:37 Ibuprofen 400 Mg Tablet PO Q6H PRN Pain Levalbuterol HCl 1 puff 11/28/24 07:37 Levalbuterol Hfa (*Sp) 15 Gm Inhaler INHALATION Q6H PRN Dyspnea Metoprolol Tartrate 25 mg 11/28/24 02:20 11/29/24 08:42 Metoprolol Tartrate 25 Mg Tablet PO 25 mg Q12HR PAT Administration Nonform Diltiazem 1 each 11/28/24 09:00 11/29/24 08:44 Hcl 15 Mg Tablet PO 12/28/24 08:59 1 each Q12HR PAT Administration Ondansetron HCl 4 mg 11/27/24 20:05 11/28/24 02:21 Ondansetron Inj 4 Mg/2 Ml Vial IV PUSH 4 mg Q6H PRN Administration Nausea And Vomiting Ondansetron HCl 4 mg 11/27/24 23:45 Ondansetron Inj 4 Mg/2 Ml Vial IV PUSH Q4H PRN Nausea Perflutren Lipid Microsphere 0 ml 11/28/24 10:06 Perflutren Lipid Microspheres 1.5 Ml Vial Diluted To 10 Ml Total Volume IV PUSH 12/01/24 10:06 ONCE PRN adequate visualization Protocol Sodium Chloride 6 ml 11/29/24 05:00 11/29/24 04:54 Sodium Chlor 3% 15 Ml Neb (Respiratory Therapy) INHALATION 12/01/24 05:01 6 ml DAILY@0500 PAT Administration Radiology Results: ITS Impressions Chest X-Ray 11/29/24 08:01 Impression: Small left pleural effusion with left basilar atelectasis versus pneumonia. Hazy and interstitial right basilar pulmonary disease, nonspecific. Labs Labs: Laboratory Results - last 24 hr 11/28/24 11/29/24 13:05 03:57 WBC 8.1 RBC 3.95 L Hgb 12.2 Hct 36.4 L MCV 92.2 MCH 30.9 MCHC 33.5 RDW 12.5 Plt Count 207 MPV 11.5 H Immature Gran % (Auto) 0.1 Neut % (Auto) 50.1 Lymph % (Auto) 27.2 [place] % (Auto) 8.3 Eos % (Auto) 13.7 H Baso % (Auto) 0.6 Lymph # (Auto) 2.20 [place] # (Auto) 0.7 H Eos # (Auto) 1.1 H Baso # (Auto) 0.1 Abs Immat Gran (auto) 0.01 Absolute Neuts (auto) 4.1 Absolute Nucleated RBC 0.000 Nucleated RBC % 0.0 Sodium 132 L Potassium 3.5 Chloride 100 Carbon Dioxide 26 Anion Gap 6 BUN 8 Creatinine 0.66 L Estim Creat Clear Calc 46 Estimated GFR > 60 Glucose 98 Calcium 8.7 Total Bilirubin 0.6 AST 37 H ALT 21 Alkaline Phosphatase 74 Total Protein 6.0 L Albumin 3.2 L Nasal MRSA (PCR) Not detected Quality VTE Prophylaxis VTE prophylaxis: pharmacologic ordered
[2024-11-29] MEDS: BUDESONIDE RESPULE NEB 0.5 MG/2 ML AMP INHALATION ×2 (10:35→19:29)
[2024-11-29] MEDS: IPRATROPIUM 0.5 MG/ALBUTEROL SULFATE 2.5 MG AMPUL.NEB 3 ML INHALATION ×3 (10:36→19:29)
--- NOTE | 2024-11-29 11:34 | P.PNPL_ITS ---
Progress Note: A&P Assessment and Plan (1) Other pulmonary collapse: Code(s): J98.19 - Other pulmonary collapse Status: Acute Assessment and Plan: patient with a history of post infectious bronchiectasis seen on CT scan 10/19/2023nd history of colonization with PENNIE, non fumigatus Aspergillus and Pseudomonas resistant to ciprofloxacin and Levaquin. Patient presents now with left lower lobe collapse new since chest x-ray on 05/18/[address] scan on 10/18/2023. she developed back pain that is improved after treatment with antibiotics. Plan: I will treat the patient for bacterial infection with meropenem and azithromycin. Her Pseudomonas sensitive to meropenem and this will also give us additional anaerobic coverage compared to cefepime. Continue azithromycin for atypicals. Her nasal MRSA swab is negative.. COVID, influenza, RSV RT PCR studies negative. I will send the extended respiratory pathogen panel. I will send urine for Legionella, urine for pneumococcus and serum mycoplasma IgM. I will induce sputums for AFB q.day x3. To enhance sputum expectoration I will place the patient on guaifenesin 1200 mg p.o. b.i.d., DuoNebs q.4 hours while awake, Cornet flutter valve, vest treatment t.i.d.. I will repeat a chest x-ray in the morning. 11/29/24: Currently the patient has no respiratory symptoms. Denies fever, chills, rigors. Continues with left-sided back pain unchanged. No shortness of breath. Room air saturations 94%. She is making no phlegm despite DuoNebs, guaifenesin, and vest therapy treatment last night. Hypertonic saline induced sputum this morning produce no phlegm. Chest x-ray this morning with unchanged left lower lobe collapse. patient with bronchiectasis and mucous plugging resulting in hospitalization. She has failed treatment with Mucinex, bronchodilators, Acapella flutter valve. recommend initiating outpatient vest therapy to aid in expectoration and prevent mucus plugging and hospitalization in the future. Plan: Continue guaifenesin 1200 mg p.o. b.i.d., DuoNebs q.4 hours while awake, vest treatment t.i.d., Cornet flutter valve. Will add Mucomyst 200 mg q.4 hours while awake. Add 0.9% sodium chloride nebulizer b.i.d. I will repeat chest x-ray in the morning. will follow with you. (2) Asthma: Code(s): J45.909 - Unspecified asthma, uncomplicated Status: Acute Assessment and Plan: Currently there is no evidence of an asthma exacerbation. Plan: Patient will be on DuoNebs q.4 hours while awake and budesonide 500 b.i.d. and will monitor. 11/29/24: No wheezing no evidence of asthma exacerbation. Plan: Add the Mucomyst and 0.9% saline nebulizers today. Watch for bronchospasm. Subjective Date/time seen: 11/29/24 11:34 Interval history: 11/28/2024: This is a new pulmonary consult for pneumonia. 74-year-old with a history of asthma, post infectious bronchiectasis, colonization with PENNIE, none fumigatus Aspergillus and Pseudomonas patient is followed in the [facility] in last seen on 08/31/2024: 6 month follow-up regarding asthma, PENNIE, and bronchiectasis. 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 She was decreased from 500 dose last visit due to good asthma control. She reports her asthma has been somewhat stable. She has had some increased GONG over the past week, unsure if due to weather change. She has been slightly more active with painting as well, using low VOC. She reports unchanged minimal productive cough mostly clear, sometimes dark frazier but no hemoptysis, fever, or night sweats. Denies wheezing or chest pains/tightness. She is maintained on Advair 250 and Xopenex PRN. She feels no difference going to the lower dose. Rescue use varies. Asthma triggers include dust, perfumes and she does not wear any perfumes, chemicals and musty smells. She has never seen an satellite communications engineer.? She was diagnosed with asthma approximately 20 years ago.? Her mother and a brother have asthma. She is a never smoker.? She was exposed to secondhand smoke from her father but none since then.? 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 She denies sandblasting, welding, asbestos were, professional painting, or sandblasting. ACT score 18, previously was 20. Plan: Continue Advair 251 puff b.i.d. if symptoms worsen increased to 500 b.i.d.. Regarding bronchiectasis secretion mobilization with echo Eric of 2 to 3 times a day. Regarding PENNIE she had no evidence of active infection. Sputum on 04/13/2020 3- for AFB but with Pseudomonas resistant to ciprofloxacin and levofloxacin. At baseline patient tells me that she produces phlegm 0-1 time a day, 2 to 3 times a week. She has no hemoptysis. She does not wheeze. And has no breathing limitations due to her asthma and bronchiectasis. On 11/22/2024 patient was at her baseline. On 11/23/2024 patient developed vomiting and diarrhea and describes this as having a stomach virus. She had no change in her respiratory status on 11/23. On 11/24 she felt flushed but had no fever and had no new respiratory complaints. On 11/26/2024 she developed left-sided back pain and went to her PCP and he noticed decreased breath sounds on the left an order to CT scan. She again had no change in her respiratory status. On 11/27/2024 CT scan of the chest showed biapical scarring without change from 10/18/2023, right upper lobe tree-in-bud infiltrates improved since 10/18/2023, lingular infiltrates improved since 10/18/2023 and new consolid ation of the entire left lower lobe New since 10/18/2023. Patient instructed to go to the emergency room and presented to the emergency department on 11/27/2024 with shortness of breath. Blood pressure 162/88, heart rate 100, respirations 20, room air saturation 96%. She was afebrile. White blood cell count 12.8, creatinine 0.54. COVID, influenza, RSV RT PCR study negative. Patient was started on ceftriaxone and azithromycin. 11/28/24: currently the patient tells me she has no Fever, chills, rigors. Her left-sided back pain is 80% better. She has no shortness of breath. She is on room air with saturations 96%. She is making no phlegm and no hemoptysis. 11/29/24: Currently the patient has no respiratory symptoms. Denies fever, chills, rigors. Continues with left-sided back pain unchanged. No shortness of breath. Room air saturations 94%. She is making no phlegm despite DuoNebs, guaifenesin, and vest therapy treatment last night. Hypertonic saline induced sputum this morning produce no phlegm. Chest x-ray this morning with unchanged left lower lobe collapse. DATA 10/13/2020: QuantiFERON gold negative Bronchoscopy on 11/19/[address] Tomlin showed mucus plugging.? Cultures grew PENNIE, non fumigatus Aspergillus and Pseudomonas.? Multiple antibiotics were recommended and the patient wanted a 2nd opinion. Chest CT 10/18/23 - Findings consistent with acute on chronic small airways infectious process, such as PENNIE, with distribution detailed above. Extent of disease involvement is decreased as compared to prior exam. Prior PFTs with normal FVC, FEV1 and FEV1: FVC ratio, normal TLC with a mildly decreased DLCO. 04/11/2023: PFTs: FVC 2.19 L, 80% predicted, FEV1 1.84 L, 87% predicted.? FEV1:? FVC ratio 84%.? RV 3.08 L, 135% predicted.? TLC 5.38 L, 106% predicted.? DLCO 15.06, 62% predicted.? Weight was on 112 lb. 09/20/2022: FVC 2.46 L, 89% predicted.? FEV1 1.97 L, 93% predicted.? FEV1:? FVC ratio 80%. 04/05/2022: FVC 2.40 L, 83% predicted.? FEV1 1.76 L, 81% predicted.? FEV1: FVC ratio 73%. Review of Systems Constitutional: Constitutional: Reports no additional constitutional complaints Eyes: Eyes: Reports no additional eye complaints ENT: Reports system reviewed and no additional complaints, except as documented Cardiovascular: Cardiovascular: Reports no additional cardiovascular complaints Respiratory: Respiratory: Reports no additional respiratory complaints Gastrointestinal: Gastrointestinal: Reports no additional gastrointestinal complaints Musculoskeletal: Musculoskeletal: Reports no additional musculoskeletal complaints Neurologic: Reports system reviewed and no additional complaints, except as documented Psychiatric: Psychiatric: Reports no additional psychiatric complaints Endocrine: Endocrine: Reports no additional endocrine complaints Hematologic/Lymphatic: Hematologic/Lymphatic: Reports no additional hematologic/lymphatic complaints Allergic/Immunologic: Allergic/Immunologic: Reports no additional allergic/immunologic complaints Exam Const: General: cooperative, healthy appearing and comfortable Orientation/consciousness: oriented to person, oriented to place and oriented to time HENMT: Head: normal to inspection Ears: hearing grossly normal bilaterally Eyes: General: appearance normal, both eyes and all related structures Neck: Neck: normal visual inspection Chest: Chest palpation & inspection: normal inspection of the chest Resp: Effort & Inspection: normal respiratory effort and able to speak in complete sentences Auscultation: no crackles, no rales, no rhonchi, no wheezes and diminished lung sounds Other: Left base Cardio: Jugular venous distension: no JVD GI: Inspection: normal to inspection Skin: General skin exam: normal color Neuro: General: oriented to person, oriented to place and oriented to time Extrem: General: normal to inspection Psych: Appearance: grossly normal Objective Data Vital Signs Vital Signs: Vital Signs - 24 hr 11/28/24 11:46 11/28/24 12:00 11/28/24 14:00 Temperature 36.6 C Pulse Rate 70 86 83 Respiratory Rate 18 Blood Pressure 92/50 L Pulse Oximetry 93 Oxygen Delivery 11/28/24 15:48 11/28/24 16:00 11/28/24 18:00 Temperature 36.7 C Pulse Rate 79 81 84 Respiratory Rate 16 Blood Pressure 99/53 L Pulse Oximetry 93 Oxygen Delivery 11/28/24 20:00 11/28/24 20:00 11/28/24 21:05 Temperature Pulse Rate 89 89 88 Respiratory Rate 18 18 Blood Pressure Pulse Oximetry 93 Oxygen Delivery Room Air 11/28/24 21:15 11/28/24 21:57 11/28/24 22:00 Temperature Pulse Rate 88 68 82 Respiratory Rate 18 Blood Pressure Pulse Oximetry Oxygen Delivery 11/28/24 23:33 11/29/24 05:08 11/29/24 08:00 Temperature 36.6 C 36.7 C Pulse Rate 16 L 88 64 Respiratory Rate 18 18 12 Blood Pressure 106/51 L 105/60 Pulse Oximetry 94 96 Oxygen Delivery 11/29/24 08:00 11/29/24 10:41 11/29/24 10:52 Temperature Pulse Rate 89 68 Respiratory Rate 18 18 Blood Pressure Pulse Oximetry Oxygen Delivery Room Air Intake/Output Intake/Output: Intake & Output 11/26/24 11/27/24 11/28/24 11/29/24 23:59 23:59 23:59 23:59 Intake Total 535.5 420 Output Total 400 Balance 135.5 420 Meds/Results Medications: Active Medications Generic Name Dose Route Start Last Admin Trade Name Freq PRN Reason Stop Dose Admin Acetaminophen 650 mg 11/27/24 23:45 Acetaminophen 325 Mg Tablet PO Q4H PRN Mild Pain (1-3) or Fever Hydrocodone Bitart/Acetaminophen 1 tab 11/27/24 23:45 Hydrocodone/Acetaminophen (*Crx) 5-325 Mg Tablet PO Q4H PRN Pain Rated 4-6 Acetylcysteine 200 mg 11/29/24 12:00 Acetylcysteine 20% Inhal Soln 800 Mg/4 Ml Vial INHALATION [id number] PAT Albuterol/Ipratropium 3 ml 11/28/24 20:00 11/29/24 10:36 Ipratropium 0.5 Mg/Albuterol Sulfate 2.5 Mg Ampul.Neb 3 Ml INHALATION 3 ml [id number] [facility] Administration Atorvastatin Calcium 40 mg 11/28/24 09:00 11/29/24 08:42 Atorvastatin 40 Mg Tablet PO 40 mg DAILY PAT Administration Budesonide 0.5 mg 11/28/24 20:00 11/29/24 10:35 Budesonide Respule Neb 0.5 Mg/2 Ml Amp INHALATION 0.5 mg Q12HRT PAT Administration Calcium Carbonate 200 mg 11/28/24 07:37 Calcium Carbonate (Tums) 500 Mg (200 Mg Elemental) PO TID PRN Indigestion Diltiazem HCl 30 mg 11/28/24 09:00 11/29/24 08:43 Diltiazem Hcl 30 Mg Tablet PO 30 mg Q12HR PAT Administration Guaifenesin 1,200 mg 11/28/24 01:55 11/29/24 08:42 Guaifenesin 12 Hr 600 Mg Tabcr PO 1,200 mg Q12HR PAT Administration Azithromycin 500 mg in 250 mls @ 250 mls/hr 11/28/24 23:00 11/28/24 23:00 Zithromax IVPB Infused Q24H PAT Infusion Meropenem 1 gm in 100 mls @ 200 mls/hr 11/28/24 13:00 11/29/24 06:47 IVPB 100 mls/hr Q8HR PAT Administration Ibuprofen 400 mg 11/28/24 07:37 Ibuprofen 400 Mg Tablet PO Q6H PRN Pain Levalbuterol HCl 1 puff 11/28/24 07:37 Levalbuterol Hfa (*Sp) 15 Gm Inhaler INHALATION Q6H PRN Dyspnea Metoprolol Tartrate 25 mg 11/28/24 02:20 11/29/24 08:42 Metoprolol Tartrate 25 Mg Tablet PO 25 mg Q12HR PAT Administration Nonform Diltiazem 1 each 11/28/24 09:00 11/29/24 08:44 Hcl 15 Mg Tablet PO 12/28/24 08:59 1 each Q12HR PAT Administration Ondansetron HCl 4 mg 11/27/24 20:05 11/28/24 02:21 Ondansetron Inj 4 Mg/2 Ml Vial IV PUSH 4 mg Q6H PRN Administration Nausea And Vomiting Ondansetron HCl 4 mg 11/27/24 23:45 Ondansetron Inj 4 Mg/2 Ml Vial IV PUSH Q4H PRN Nausea Perflutren Lipid Microsphere 0 ml 11/28/24 10:06 Perflutren Lipid Microspheres 1.5 Ml Vial Diluted To 10 Ml Total Volume IV PUSH 12/01/24 10:06 ONCE PRN adequate visualization Protocol Sodium Chloride 6 ml 11/29/24 05:00 11/29/24 04:54 Sodium Chlor 3% 15 Ml Neb (Respiratory Therapy) INHALATION 12/01/24 05:01 6 ml DAILY@0500 PAT Administration Sodium Chloride 3 ml 11/29/24 20:00 Sodium Chloride 0.9% 3 Ml Neb For Inhalation INHALATION BID [facility] Radiology Results: ITS Impressions Chest X-Ray 11/29/24 08:01 Impression: Small left pleural effusion with left basilar atelectasis versus pneumonia. Hazy and interstitial right basilar pulmonary disease, nonspecific. Labs Labs: Laboratory Results - last 24 hr 11/28/24 11/29/24 13:05 03:57 WBC 8.1 RBC 3.95 L Hgb 12.2 Hct 36.4 L MCV 92.2 MCH 30.9 MCHC 33.5 RDW 12.5 Plt Count 207 MPV 11.5 H Immature Gran % (Auto) 0.1 Neut % (Auto) 50.1 Lymph % (Auto) 27.2 [place] % (Auto) 8.3 Eos % (Auto) 13.7 H Baso % (Auto) 0.6 Lymph # (Auto) 2.20 [place] # (Auto) 0.7 H Eos # (Auto) 1.1 H Baso # (Auto) 0.1 Abs Immat Gran (auto) 0.01 Absolute Neuts (auto) 4.1 Absolute Nucleated RBC 0.000 Nucleated RBC % 0.0 Sodium 132 L Potassium 3.5 Chloride 100 Carbon Dioxide 26 Anion Gap 6 BUN 8 Creatinine 0.66 L Estim Creat Clear Calc 46 Estimated GFR > 60 Glucose 98 Calcium 8.7 Total Bilirubin 0.6 AST 37 H ALT 21 Alkaline Phosphatase 74 Total Protein 6.0 L Albumin 3.2 L Nasal MRSA (PCR) Not detected
[2024-11-29] MEDS: ACETYLCYSTEINE 20% INHAL SOLN 800 MG/4 ML VIAL 200 MG INHALATION ×2 (15:30→19:29)
[2024-11-29] MEDS: SODIUM CHLORIDE 0.9% 3 ML NEB FOR INHALATION INHALATION (19:50)
[2024-11-29] MEDS: AZITHROMYCIN 500 MG/NS 250 ML 500 MG/250 ML BAG 250 MG IVPB (23:24)
[2024-11-30 04:43] LABS: Basophils Absolute Auto 0.1 K/mm3 (0.0-0.1); Basophils Percent Auto 0.6 % (0.2-1.2); Eosinophils Absolute Auto 1.4 K/mm3 (0-0.3); Eosinophils Percent Auto 14.1 % (0-4.4); Hematocrit 33.8 % (37.0-47.0); Hemoglobin 11.4 g/dL (12.0-15.0); Immature Granulocyte Absolute 0.03 K/mm3 (0.00-0.031); Immature Granulocyte Percent A 0.3 % (0-0.5); Lymphocytes Absolute Auto 2.27 K/mm3 (0.9-3.2); Lymphocytes Percent Auto 23.7 % (18.3-44.2); Mean Corpuscular HGB Conc 33.7 g/dl (32-36); Mean Corpuscular Hemoglobin 31.3 pg (26-34); Mean Corpuscular Volume 92.9 fl (80-100); Mean Platelet Volume 11.5 fl (7.4-10.4); Monocytes Absolute Auto 0.9 K/mm3 (0.1-0.6); Monocytes Percent Auto 8.9 % (2.6-8.5); Neutrophils Percent Auto 52.4 % (45.5-73.1); Platelet Count Result 223 k/mm3 (150-375); Red Blood Count 3.64 M/mm3 (4.2-5.4); Red Cell Distribution Width 12.6 % (11.5-14.5); White Blood Count 9.6 K/mm3 (4.5-10.0)
[2024-11-30 04:57] LABS: Alanine Aminotransferase 19 U/L (6-35); Albumin Level 3.1 g/dL (3.5-5.1); Alkaline Phosphatase 85 U/L (38-126); Anion Gap 8 mmol/L (4-12); Aspartate Amino Transferase 27 U/L (14-36); Bilirubin,Total 0.4 mg/dL (0.2-1.3); Blood Urea Nitrogen 10 mg/dL (7-17); Calcium 9.1 mg/dL (8.4-10.2); Carbon Dioxide 27 mmol/L (22-30); Chloride 103 mmol/L (98-107); Estimated CRCL calculation 42 ml/min; Estimated Glomerular Filt Rate > 60; Glucose 95 mg/dL (65-110); Sodium 138 mmol/L (137-145)
[2024-11-30] MEDS: MEROPENEM 1 GM/NS 100 ML 1 GM/100 ML BAG IVPB ×2 (07:28→13:50)
[2024-11-30 08:00] VITALS: BP 101/49; PULSE 76; RESP 18; TEMP 36.6; O2SAT 94
[2024-11-30] MEDS: BUDESONIDE RESPULE NEB 0.5 MG/2 ML AMP INHALATION (08:23)
[2024-11-30] MEDS: IPRATROPIUM 0.5 MG/ALBUTEROL SULFATE 2.5 MG AMPUL.NEB 3 ML INHALATION ×2 (08:23→15:28)
[2024-11-30 08:25] VITALS: PULSE 75; RESP 18; O2SAT 95
[2024-11-30 09:33] VITALS: PULSE 80
[2024-11-30] MEDS: METOPROLOL TARTRATE 25 MG TABLET PO (09:33)
[2024-11-30] MEDS: dilTIAZem HCL 30 MG TABLET PO (09:35)
[2024-11-30] MEDS: DILTIAZEM 1 EACH PO (09:35)
[2024-11-30] MEDS: ATORVASTATIN 40 MG TABLET PO (09:36)
[2024-11-30] MEDS: guaiFENesin 12 HR 600 MG TABCR 1200 MG PO (09:36)
--- NOTE | 2024-11-30 10:41 | P.PNCA_ITS ---
Progress Note: A&P Assessment and Plan (1) Elevated troponin: Code(s): R79.89 - Other specified abnormal findings of blood chemistry Status: Acute Plan 1. Elevated troponin 2. Near complete collapse of left lower lobe, likely due to mucous pluggin 3. PENNIE 4. Bronchiectasis 5. Asthma PLAN: -Echocardiogram shows LVEF 50-55% with hypokinesis of the anterior and anteroseptal wall. Discussed findings with the patient. She states she had a cardiac catheterization done at [place] with [facility] one year ago and this showed at most a 20% stenosis but otherwise coronaries looked good. I do not have the official reports to confirm this but patient is a very good historian. She does regularly follow up with [facility]. She has no anginal symptoms or cardiac symptoms, and given LHC was done last year, I do not feel like we need to repeat any ischemic evaluation at this time. Undergoing treatment for left lower lobe collapse and bronchiectasis as per Pulmonary. From my standpoint, she can follow up with [facility] as an outpatient. Cardiology will sign off at this time, but please call us back if needed. Subjective Date/time seen: 11/30/24 10:41 Interval history: Reason for visit: Elevated troponin HPI: We are consulted for elevated troponin. This is a 74 year old female with asthma, PENNIE, bronchiectasis who has been having nausea, vomiting, diarrhea, poor appetite for the past few days. Developed a pain in her back. Evaluated by PCP who ordered CT scan which showed near complete collapse of LLL, therefore, sent to the ED. As part of the ER workup, troponins were obtained and noted to be mildly elevated. She denies any chest pain or other anginal symptoms. She denies shortness of breath and is otherwise resting comfortably. Workup shows troponins of 0.057, 0.073, 0.076, 0.055. Chest CTA shows chronic diffuse lung disease, lik sowmya chronic PENNIE infection, new near complete collapse of left lower lobe. EKGs show sinus rhythm, incomplete right bundle branch block, nonspecific STTW abnormality. Date of service 11/30: No chest pain. Reports having diarrhea this morning. Has stabbing pain in left lower back that is getting better. Tele without arrhythmias. Review of Systems 2 Review of Systems: All systems reviewed & are unremarkable except as noted in HPI and below (HPI) Objective Data Vital Signs Vital Signs: Vital Signs - 24 hr 11/29/24 10:52 11/29/24 12:11 11/29/24 15:30 Temperature Pulse Rate 68 72 72 Respiratory Rate 18 18 18 Blood Pressure Pulse Oximetry Oxygen Delivery 11/29/24 15:40 11/29/24 16:00 11/29/24 19:30 Temperature 36.5 C Pulse Rate 78 70 68 Respiratory Rate 18 20 18 Blood Pressure 100/52 L Pulse Oximetry 94 Oxygen Delivery 11/29/24 20:00 11/29/24 20:22 11/29/24 20:56 Temperature 36.8 C Pulse Rate 84 81 Respiratory Rate 20 Blood Pressure 114/55 L Pulse Oximetry 96 Oxygen Delivery Room Air 11/29/24 23:51 11/30/24 08:00 11/30/24 08:25 Temperature 36.6 C Pulse Rate 68 76 75 Respiratory Rate 18 18 Blood Pressure 101/49 L Pulse Oximetry 94 95 Oxygen Delivery Room Air 11/30/24 08:25 11/30/24 09:33 Temperature Pulse Rate 75 80 Respiratory Rate 18 Blood Pressure Pulse Oximetry Oxygen Delivery Intake/Output Intake/Output: Intake & Output 11/27/24 11/28/24 11/29/24 11/30/24 23:59 23:59 23:59 23:59 Intake Total 535.5 1450 370 Output Total 400 Balance 135.5 1450 370 Meds/Results Medications: Active Medications Generic Name Dose Route Start Last Admin Trade Name Freq PRN Reason Stop Dose Admin Acetaminophen 650 mg 11/27/24 23:45 Acetaminophen 325 Mg Tablet PO Q4H PRN Mild Pain (1-3) or Fever Hydrocodone Bitart/Acetaminophen 1 tab 11/27/24 23:45 Hydrocodone/Acetaminophen (*Crx) 5-325 Mg Tablet PO Q4H PRN Pain Rated 4-6 Acetylcysteine 200 mg 11/29/24 12:00 11/30/24 08:24 Acetylcysteine 20% Inhal Soln 800 Mg/4 Ml Vial INHALATION Not Given [id number] PAT Albuterol/Ipratropium 3 ml 11/28/24 20:00 11/30/24 08:23 Ipratropium 0.5 Mg/Albuterol Sulfate 2.5 Mg Ampul.Neb 3 Ml INHALATION 3 ml [id number] PAT Administration Atorvastatin Calcium 40 mg 11/28/24 09:00 11/30/24 09:36 Atorvastatin 40 Mg Tablet PO 40 mg DAILY PAT Administration Budesonide 0.5 mg 11/28/24 20:00 11/30/24 08:23 Budesonide Respule Neb 0.5 Mg/2 Ml Amp INHALATION 0.5 mg Q12HRT PAT Administration Calcium Carbonate 200 mg 11/28/24 07:37 Calcium Carbonate (Tums) 500 Mg (200 Mg Elemental) PO TID PRN Indigestion Diltiazem HCl 30 mg 11/28/24 09:00 11/30/24 09:35 Diltiazem Hcl 30 Mg Tablet PO 30 mg Q12HR PAT Administration Guaifenesin 1,200 mg 11/28/24 01:55 11/30/24 09:36 Guaifenesin 12 Hr 600 Mg Tabcr PO 1,200 mg Q12HR PAT Administration Azithromycin 500 mg in 250 mls @ 250 mls/hr 11/28/24 23:00 11/30/24 02:25 Zithromax IVPB Infused Q24H PAT Infusion Meropenem 1 gm in 100 mls @ 200 mls/hr 11/28/24 13:00 11/30/24 07:28 IVPB 100 mls/hr Q8HR PAT Administration Ibuprofen 400 mg 11/28/24 07:37 Ibuprofen 400 Mg Tablet PO Q6H PRN Pain Levalbuterol HCl 1 puff 11/28/24 07:37 Levalbuterol Hfa (*Sp) 15 Gm Inhaler INHALATION Q6H PRN Dyspnea Metoprolol Tartrate 25 mg 11/28/24 02:20 11/30/24 09:33 Metoprolol Tartrate 25 Mg Tablet PO 25 mg Q12HR PAT Administration Nonform Diltiazem 1 each 11/28/24 09:00 11/30/24 09:35 Hcl 15 Mg Tablet PO 12/28/24 08:59 1 each Q12HR PAT Administration Ondansetron HCl 4 mg 11/27/24 20:05 11/28/24 02:21 Ondansetron Inj 4 Mg/2 Ml Vial IV PUSH 4 mg Q6H PRN Administration Nausea And Vomiting Ondansetron HCl 4 mg 11/27/24 23:45 Ondansetron Inj 4 Mg/2 Ml Vial IV PUSH Q4H PRN Nausea Perflutren Lipid Microsphere 0 ml 11/28/24 10:06 Perflutren Lipid Microspheres 1.5 Ml Vial Diluted To 10 Ml Total Volume IV PUSH 12/01/24 10:06 ONCE PRN adequate visualization Protocol Sodium Chloride 6 ml 11/29/24 05:00 11/30/24 06:34 Sodium Chlor 3% 15 Ml Neb (Respiratory Therapy) INHALATION 12/01/24 05:01 Not Given DAILY@0500 PAT Sodium Chloride 3 ml 11/29/24 20:00 11/30/24 08:24 Sodium Chloride 0.9% 3 Ml Neb For Inhalation INHALATION Not Given BID [facility] Radiology Results: ITS Impressions Chest X-Ray 11/30/24 06:24 IMPRESSION: 1. Stable airspace opacities in the lower lung zones, left worse than right, consistent with pneumonia. Labs Labs: Laboratory Results - last 24 hr 11/30/24 04:02 WBC 9.6 RBC 3.64 L Hgb 11.4 L Hct 33.8 L MCV 92.9 MCH 31.3 MCHC 33.7 RDW 12.6 Plt Count 223 MPV 11.5 H Immature Gran % (Auto) 0.3 Neut % (Auto) 52.4 Lymph % (Auto) 23.7 [place] % (Auto) 8.9 H Eos % (Auto) 14.1 H Baso % (Auto) 0.6 Lymph # (Auto) 2.27 [place] # (Auto) 0.9 H Eos # (Auto) 1.4 H Baso # (Auto) 0.1 Abs Immat Gran (auto) 0.03 Absolute Neuts (auto) 5.0 Absolute Nucleated RBC 0.000 Nucleated RBC % 0.0 Sodium 138 Potassium 4.0 Chloride 103 Carbon Dioxide 27 Anion Gap 8 BUN 10 Creatinine 0.71 Estim Creat Clear Calc 42 Estimated GFR > 60 Glucose 95 Calcium 9.1 Total Bilirubin 0.4 AST 27 ALT 19 Alkaline Phosphatase 85 Total Protein 6.0 L Albumin 3.1 L
--- NOTE | 2024-11-30 12:39 | P.PNPL_ITS ---
Progress Note: A&P Assessment and Plan (1) Other pulmonary collapse: Code(s): J98.19 - Other pulmonary collapse Status: Acute Assessment and Plan: patient with a history of post infectious bronchiectasis seen on CT scan 10/19/2023nd history of colonization with PENNIE, non fumigatus Aspergillus and Pseudomonas resistant to ciprofloxacin and Levaquin. Patient presents now with left lower lobe collapse new since chest x-ray on 05/18/[address] scan on 10/18/2023. she developed back pain that is improved after treatment with antibiotics. Plan: I will treat the patient for bacterial infection with meropenem and azithromycin. Her Pseudomonas sensitive to meropenem and this will also give us additional anaerobic coverage compared to cefepime. Continue azithromycin for atypicals. Her nasal MRSA swab is negative.. COVID, influenza, RSV RT PCR studies negative. I will send the extended respiratory pathogen panel. I will send urine for Legionella, urine for pneumococcus and serum mycoplasma IgM. I will induce sputums for AFB q.day x3. To enhance sputum expectoration I will place the patient on guaifenesin 1200 mg p.o. b.i.d., DuoNebs q.4 hours while awake, Cornet flutter valve, vest treatment t.i.d.. I will repeat a chest x-ray in the morning. 11/29/24: Currently the patient has no respiratory symptoms. Denies fever, chills, rigors. Continues with left-sided back pain unchanged. No shortness of breath. Room air saturations 94%. She is making no phlegm despite DuoNebs, guaifenesin, and vest therapy treatment last night. Hypertonic saline induced sputum this morning produce no phlegm. Chest x-ray this morning with unchanged left lower lobe collapse. Patient with bronchiectasis and daily productive cough for over 1 year now with mucous plugging resulting in hospitalization. She has failed treatment with Mucinex, bronchodilators, Acapella flutter valve as these are ineffective at mobilizing secretions. Recommend initiating outpatient Biwaze Clear therapy to aid in expectoration and prevent mucus plugging and hospitalization in the future. Plan: Continue guaifenesin 1200 mg p.o. b.i.d., DuoNebs q.4 hours while awake, vest treatment t.i.d., Cornet flutter valve. Will add Mucomyst 200 mg q.4 hours while awake. Add 0.9% sodium chloride nebulizer b.i.d. I will repeat chest x-ray in the morning. 11/30/2024: Patient has no respiratory complaints. She denies fever, chills, rigors. She heads 1 episode of diarrhea this morning. Afebrile. White blood cell count 9.6, creatinine 0.71. Currently she is on room air saturations 95%. Chest x-ray shows continued left lower lobe consolidation with mild bibasilar interstitial infiltrates with no change from 11/29/2024. From a pulmonary perspective patient is ready to be discharged on these pulmonary medications: Augmentin 875-125 at 1 pill b.i.d. x4 days. Azithromycin 250 mg p.o. q.day x2 days. Guaifenesin 1200 mg p.o. b.i.d. Biwaze Clear therapy through [facility] BID DuoNebs b.i.d. Acapella or Cornet flutter valve q.i.d. Advair 250-50 1 puff twice a day. Plan will be to aggressively treat the patient for 4-6 weeks and repeat imaging to determine if the left lower lobe has re-expanded. Follow-up in the Pulmonary Clinic in 4 weeks. I informed her to call the clinic on discharge and informed our home care scheduler. Discussed with Noemy Mota, will sign off, call with questions (2) Asthma: Code(s): J45.909 - Unspecified asthma, uncomplicated Status: Acute Assessment and Plan: Currently there is no evidence of an asthma exacerbation. Plan: Patient will be on DuoNebs q.4 hours while awake and budesonide 500 b.i.d. and will monitor. 11/29/24: No wheezing no evidence of asthma exacerbation. Plan: Add the Mucomyst and 0.9% saline nebulizers today. Watch for bronchospasm. 11/30/24: patient has no wheezing or evidence of an asthma exacerbation. Plan: Will continue her home Advair 250-51 puff b.i.d. on discharge. Subjective Date/time seen: 11/30/24 12:39 Interval history: 11/28/2024: This is a new pulmonary consult for pneumonia. 74-year-old with a history of asthma, post infectious bronchiectasis, colonization with PENNIE, none fumigatus Aspergillus and Pseudomonas patient is followed in the Pulmonary Clinic in last seen on 08/31/2024: 6 month follow-up regarding asthma, PENNIE, and bronchiectasis. 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 She was decreased from 500 dose last visit due to good asthma control. She reports her asthma has been somewhat stable. She has had some increased GONG over the past week, unsure if due to weather change. She has been slightly more active with painting as well, using low VOC. She reports unchanged minimal productive cough mostly clear, sometimes dark frazier but no hemoptysis, fever, or night sweats. Denies wheezing or chest pains/tightness. She is maintained on Advair 250 and Xopenex PRN. She feels no difference going to the lower dose. Rescue use varies. Asthma triggers include dust, perfumes and she does not wear any perfumes, chemicals and musty smells. She has never seen an mold burner.? She was diagnosed with asthma approximately 20 years ago.? Her mother and a brother have asthma. She is a never smoker.? She was exposed to secondhand smoke from her father but none since then.? 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 She denies sandblasting, welding, asbestos were, professional painting, or sandblasting. ACT score 18, previously was 20. Plan: Continue Advair 251 puff b.i.d. if symptoms worsen increased to 500 b.i.d.. Regarding bronchiectasis secretion mobilization with echo Eric of 2 to 3 times a day. Regarding PENNIE she had no evidence of active infection. Sputum on 04/13/2020 3- for AFB but with Pseudomonas resistant to ciprofloxacin and levofloxacin. At baseline patient tells me that she produces phlegm 0-1 time a day, 2 to 3 times a week. She has no hemoptysis. She does not wheeze. And has no breathing limitations due to her asthma and bronchiectasis. On 11/22/2024 patient was at her baseline. On 11/23/2024 patient developed vomiting and diarrhea and describes this as having a stomach virus. She had no change in her respiratory status on 11/23. On 11/24 she felt flushed but had no fever and had no new respiratory complaints. On 11/26/2024 she developed left-sided back pain and went to her PCP and he noticed decreased breath sounds on the left an order to CT scan. She again had no change in her respiratory status. On 11/27/2024 CT scan of the chest showed biapical scarring without change from 10/18/2023, right upper lobe tree-in-bud infiltrates improved since 10/18/2023, lingular infiltrates improved since 10/18/2023 and new consolidation of the entire left lower lobe New since 10/18/2023. Patient instructed to go to the emergency room and presented to the emergency department on 11/27/2024 with shortness of breath. Blood pressure 162/88, heart rate 100, respirations 20, room air saturation 96%. She was afebrile. White blood cell count 12.8, creatinine 0.54. COVID, influenza, RSV RT PCR study negative. Patient was started on ceftriaxone and azithromycin. 11/28/24: currently the patient tells me she has no Fever, chills, rigors. Her left-sided back pain is 80% better. She has no shortness of breath. She is on room air with saturations 96%. She is making no phlegm and no hemoptysis. 11/29/24: Currently the patient has no respiratory symptoms. Denies fever, chills, rigors. Continues with left-sided back pain unchanged. No shortness of breath. Room air saturations 94%. She is making no phlegm despite DuoNebs, g uaifenesin, and vest therapy treatment last night. Hypertonic saline induced sputum this morning produce no phlegm. Chest x-ray this morning with unchanged left lower lobe collapse. 11/30/2024: Patient has no respiratory complaints. She denies fever, chills, rigors. She heads 1 episode of diarrhea this morning. Afebrile. White blood cell count 9.6, creatinine 0.71. Currently she is on room air saturations 95%. Chest x-ray shows continued left lower lobe consolidation with mild bibasilar interstitial infiltrates with no change from 11/29/2024. DATA 10/13/2020: QuantiFERON gold negative Bronchoscopy on 11/19/[address] Tomlin showed mucus plugging.? Cultures grew PENNIE, non fumigatus Aspergillus and Pseudomonas.? Multiple antibiotics were recommended and the patient wanted a 2nd opinion. Chest CT 10/18/23 - Findings consistent with acute on chronic small airways infectious process, such as PENNIE, with distribution detailed above. Extent of disease involvement is decreased as compared to prior exam. Prior PFTs with normal FVC, FEV1 and FEV1: FVC ratio, normal TLC with a mildly decreased DLCO. 04/11/2023: PFTs: FVC 2.19 L, 80% predicted, FEV1 1.84 L, 87% predicted.? FEV1:? FVC ratio 84%.? RV 3.08 L, 135% predicted.? TLC 5.38 L, 106% predicted.? DLCO 15.06, 62% predicted.? Weight was on 112 lb. 09/20/2022: FVC 2.46 L, 89% predicted.? FEV1 1.97 L, 93% predicted.? FEV1:? FVC ratio 80%. 04/05/2022: FVC 2.40 L, 83% predicted.? FEV1 1.76 L, 81% predicted.? FEV1: FVC ratio 73%. Review of Systems Constitutional: Constitutional: Reports no additional constitutional complaints Eyes: Eyes: Reports no additional eye complaints ENT: Reports system reviewed and no additional complaints, except as documented Cardiovascular: Cardiovascular: Reports no additional cardiovascular complaints Respiratory: Respiratory: Reports no additional respiratory complaints Gastrointestinal: Gastrointestinal: Reports no additional gastrointestinal complaints Musculoskeletal: Musculoskeletal: Reports no additional musculoskeletal complaints Neurologic: Reports system reviewed and no additional complaints, except as documented Psychiatric: Psychiatric: Reports no additional psychiatric complaints Endocrine: Endocrine: Reports no additional endocrine complaints Hematologic/Lymphatic: Hematologic/Lymphatic: Reports no additional hematologic/lymphatic complaints Allergic/Immunologic: Allergic/Immunologic: Reports no additional allergic/immunologic complaints Exam Const: General: cooperative, healthy appearing and comfortable Orientation/consciousness: oriented to person, oriented to place and oriented to time HENMT: Head: normal to inspection Ears: hearing grossly normal bilaterally Eyes: General: appearance normal, both eyes and all related structures Neck: Neck: normal visual inspection Chest: Chest palpation & inspection: normal inspection of the chest Resp: Effort & Inspection: normal respiratory effort and able to speak in complete sentences Auscultation: no crackles, no rales, no rhonchi, no wheezes and diminished lung sounds Other: Left base Cardio: Jugular venous distension: no JVD GI: Inspection: normal to inspection Skin: General skin exam: normal color Neuro: General: oriented to person, oriented to place and oriented to time Extrem: General: normal to inspection Psych: Appearance: grossly normal Objective Data Vital Signs Vital Signs: Vital Signs - 24 hr 11/29/24 15:30 11/29/24 15:40 11/29/24 16:00 Temperature 36.5 C Pulse Rate 72 78 70 Respiratory Rate 18 18 20 Blood Pressure 100/52 L Pulse Oximetry 94 Oxygen Delivery 11/29/24 19:30 11/29/24 20:00 11/29/24 20:22 Temperature Pulse Rate 68 84 Respiratory Rate 18 Blood Pressure Pulse Oximetry Oxygen Delivery Room Air 11/29/24 20:56 11/29/24 23:51 11/30/24 08:00 Temperature 36.8 C 36.6 C Pulse Rate 81 68 76 Respiratory Rate 20 18 Blood Pressure 114/55 L 101/49 L Pulse Oximetry 96 94 Oxygen Delivery 11/30/24 08:25 11/30/24 08:25 11/30/24 09:33 Temperature Pulse Rate 75 75 80 Respiratory Rate 18 18 Blood Pressure Pulse Oximetry 95 Oxygen Delivery Room Air Intake/Output Intake/Output: Intake & Output 11/27/24 11/28/24 11/29/24 11/30/24 23:59 23:59 23:59 23:59 Intake Total 535.5 1450 370 Output Total 400 Balance 135.5 1450 370 Meds/Results Medications: Active Medications Generic Name Dose Route Start Last Admin Trade Name Freq PRN Reason Stop Dose Admin Acetaminophen 650 mg 11/27/24 23:45 Acetaminophen 325 Mg Tablet PO Q4H PRN Mild Pain (1-3) or Fever Hydrocodone Bitart/Acetaminophen 1 tab 11/27/24 23:45 Hydrocodone/Acetaminophen (*Crx) 5-325 Mg Tablet PO Q4H PRN Pain Rated 4-6 Acetylcysteine 200 mg 11/29/24 12:00 11/30/24 08:24 Acetylcysteine 20% Inhal Soln 800 Mg/4 Ml Vial INHALATION Not Given [id number] PAT Albuterol/Ipratropium 3 ml 11/28/24 20:00 11/30/24 08:23 Ipratropium 0.5 Mg/Albuterol Sulfate 2.5 Mg Ampul.Neb 3 Ml INHALATION 3 ml [id number] PAT Administration Atorvastatin Calcium 40 mg 11/28/24 09:00 11/30/24 09:36 Atorvastatin 40 Mg Tablet PO 40 mg DAILY PAT Administration Budesonide 0.5 mg 11/28/24 20:00 11/30/24 08:23 Budesonide Respule Neb 0.5 Mg/2 Ml Amp INHALATION 0.5 mg Q12HRT PAT Administration Calcium Carbonate 200 mg 11/28/24 07:37 Calcium Carbonate (Tums) 500 Mg (200 Mg Elemental) PO TID PRN Indigestion Diltiazem HCl 30 mg 11/28/24 09:00 11/30/24 09:35 Diltiazem Hcl 30 Mg Tablet PO 30 mg Q12HR PAT Administration Guaifenesin 1,200 mg 11/28/24 01:55 11/30/24 09:36 Guaifenesin 12 Hr 600 Mg Tabcr PO 1,200 mg Q12HR PAT Administration Azithromycin 500 mg in 250 mls @ 250 mls/hr 11/28/24 23:00 11/30/24 02:25 Zithromax IVPB Infused Q24H PAT Infusion Meropenem 1 gm in 100 mls @ 200 mls/hr 11/28/24 13:00 11/30/24 07:28 IVPB 100 mls/hr Q8HR PAT Administration Ibuprofen 400 mg 11/28/24 07:37 Ibuprofen 400 Mg Tablet PO Q6H PRN Pain Levalbuterol HCl 1 puff 11/28/24 07:37 Levalbuterol Hfa (*Sp) 15 Gm Inhaler INHALATION Q6H PRN Dyspnea Metoprolol Tartrate 25 mg 11/28/24 02:20 11/30/24 09:33 Metoprolol Tartrate 25 Mg Tablet PO 25 mg Q12HR PAT Administration Nonform Diltiazem 1 each 11/28/24 09:00 11/30/24 09:35 Hcl 15 Mg Tablet PO 12/28/24 08:59 1 each Q12HR PAT Administration Ondansetron HCl 4 mg 11/27/24 20:05 11/28/24 02:21 Ondansetron Inj 4 Mg/2 Ml Vial IV PUSH 4 mg Q6H PRN Administration Nausea And Vomiting Ondansetron HCl 4 mg 11/27/24 23:45 Ondansetron Inj 4 Mg/2 Ml Vial IV PUSH Q4H PRN Nausea Perflutren Lipid Microsphere 0 ml 11/28/24 10:06 Perflutren Lipid Microspheres 1.5 Ml Vial Diluted To 10 Ml Total Volume IV PUSH 12/01/24 10:06 ONCE PRN adequate visualization Protocol Sodium Chloride 6 ml 11/29/24 05:00 11/30/24 06:34 Sodium Chlor 3% 15 Ml Neb (Respiratory Therapy) INHALATION 12/01/24 05:01 Not Given DAILY@0500 [facility] Sodium Chloride 3 ml 11/29/24 20:00 11/30/24 08:24 Sodium Chloride 0.9% 3 Ml Neb For Inhalation INHALATION Not Given BID [facility] Radiology Results: ITS Impressions Chest X-Ray 11/30/24 06:24 IMPRESSION: 1. Stable airspace opacities in the lower lung zones, left worse than right, consistent with pneumonia. Labs Labs: Laboratory Results - last 24 hr 11/30/24 04:02 WBC 9.6 RBC 3.64 L Hgb 11.4 L Hct 33.8 L MCV 92.9 MCH 31.3 MCHC 33.7 RDW 12.6 Plt Count 223 MPV 11.5 H Immature Gran % (Auto) 0.3 Neut % (Auto) 52.4 Lymph % (Auto) 23.7 [place] % (Auto) 8.9 H Eos % (Auto) 14.1 H Baso % (Auto) 0.6 Lymph # (Auto) 2.27 [place] # (Auto) 0.9 H Eos # (Auto) 1.4 H Baso # (Auto) 0.1 Abs Immat Gran (auto) 0.03 Absolute Neuts (auto) 5.0 Absolute Nucleated RBC 0.000 Nucleated RBC % 0.0 Sodium 138 Potassium 4.0 Chloride 103 Carbon Dioxide 27 Anion Gap 8 BUN 10 Creatinine 0.71 Estim Creat Clear Calc 42 Estimated GFR > 60 Glucose 95 Calcium 9.1 Total Bilirubin 0.4 AST 27 ALT 19 Alkaline Phosphatase 85 Total Protein 6.0 L Albumin 3.1 L
--- NOTE | 2024-11-30 12:44 | PCNFU ---
Nutrition Follow-Up Complete: Inadequate energy intake related to NPO status as evidenced by current diet order Diet order - Goal is met, regular diet PO intake 50% or greater - Progressing with intakes 25-100% Goal: Pt current nutrition is Regular diet. Nutrition recommendation: Oral nutrition supplements: Ensure Enlive TID (350 kcal, 20 g protein each) Last recorded weight is 50.2 kg. Bowel Motility:No BMs are recorded so far Labs Reviewed: Hgb 11.4, Hct 33.8, Alb 3.1 Meds Noted: Zofran Skin:No skin issues Additional Notes: Intakes poor to good with 25-100% on regular diet. Adding supplements. Agree with diet orders. Monitor diet order, intake, wt, labs, Follow up in 3 days.
[2024-11-30] MEDS: ACETYLCYSTEINE 20% INHAL SOLN 800 MG/4 ML VIAL 200 MG INHALATION (15:28)
[2024-11-30 15:31] VITALS: PULSE 77; RESP 20
[2024-11-30 15:54] VITALS: BP 120/70; PULSE 113; RESP 16; TEMP 36.6; O2SAT 95
--- NOTE | 2024-11-30 16:24 | P.DS_ITS ---
DS: Admitting Diagnosis Discharge Date 11/30/24 Admitting Diagnosis NSTEMI Elevated white count LLL Collapse PENNIE DS: Discharge Diagnosis Discharge Diagnosis (1) Elevated troponin: Code(s): R79.89 - Other specified abnormal findings of blood chemistry Status: Acute (2) Hypokalemia: Code(s): E87.6 - Hypokalemia Status: Acute (3) Bronchiectasis: Qualifiers: Bronchiectasis type: uncomplicated Qualified Code(s): J47.9 - Bronchiectasis, uncomplicated Code(s): J47.9 - Bronchiectasis, uncomplicated Status: Acute (4) Other pulmonary collapse: Code(s): J98.19 - Other pulmonary collapse Status: Acute DS: Summary Hospital Course Reason for hospitalization: Copied from [facility] 11/28: This 74 year old female pt with PMH of chronic asthma and Bronchietasis managed by Dr. Mayer from Pulmonology, HLD intolerant of statins and a tachy arrhythmia presented to the ER overnight with complaints of having shortness of breath and being sent here from [place] for a near left lower lobe lung collapse and recurrent PNA. Pt endorses that for one week and a half she has had abdominal cramping with N/V and over the course of the past couple of days developed a pain in the left posterior thorax worse with inspiration. This prompted her to call her PCP, who then ordered a CT scan as her breath sounds were decreased in the LLL. 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 She was sent here for further workup and evaluation. In the ER workup was performed with review of the pts imaging, and findings were significant for elevation of D-dimer, marginally low Sodium, Potassium and Chloride, unremarkable Creatinine, low magnesium and Troponins that were elevated. Pt was cleared of potential PE by YEARS criteria, she received a Magnesium supplementation rider, and troponins are flat, but she is on Heparin drip pending Cardiology evaluation that has been placed. Suspect this is all demand from her current Respiratory situation, but will await expert consult given that she also has HLD and does not take prescribed medication. She is receiving abx of Rocephin and Azithromycin for her unresolving PNA pending Pulmonology consult. Pt has complaints today of pain in the left posterior thorax that continues, but no other acute complaints of pain or distress. She denies any fevers now or at any other point in time. Hospital Course: Dawn Burgess was admitted for treatment of bronchiectasis complicated by left lower lung collapse. 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 Patient presents now with left lower lobe collapse new since chest x-ray on 05/18/[address] scan on 10/18/2023. She developed back pain that is improved after treatment with antibiotics. During admission she was treated with meropenem and azithromycin, duonebs, hypertonic saline, mucomyst, and budesonide. Pseudomonas was sensitive to meropenem continued azithromycin for atypicals. Nasal MRSA swab is negative. COVID, influenza, RSV RT PCR studies negative. Quantiferon TB test negative. WBC 8.9-12.8 during admission. Afebrile 11/30 Chest x-ray showed stable airspace opacities in the lower lung zones, left worse than right, consistent with pneumonia. --Respiratory viral panel pending --Urine for Legionella, urine for pneumococcus and serum mycoplasma IgM pending --Induced sputums, AFB x3 days were sent Pulmonary follow up plan: Augmentin 875-125 at 1 pill b.i.d. x4 days. Azithromycin 250 mg p.o. q.day x2 days. Guaifenesin 1200 mg p.o. b.i.d. Biwaze Clear therapy through [facility] BID DuoNebs b.i.d. Acapella or Cornet flutter valve q.i.d. Advair 250-50 1 puff twice a day. Plan will be to aggressively treat the patient for 4-6 weeks and repeat imaging to determine if the left lower lobe has re-expanded. Follow-up in the Pulmonary Clinic in 4 weeks. I informed her to call the clinic on discharge and informed our steel shot header operator. Asthma Stable during admission, no wheezing --Continued advair BID for discharge Elevated troponin Cardiology was consulted for elevated troponin and wall motion abnormalities on echo. Troponin 0.73<0.76>0.55. Follows with [facility]. Echocardiogram shows LVEF 50-55% with hypokinesis of anterior and septal wall. Cardiac catheterization was done at [facility] last year and showed at most 20% stenosis but otherwise clean coronaries. Cardiology was consulted and no further ischemic workup was indicated. She will follow up with her outpatient bioinformatics assistant per routine Hypokalemia Potassium 3.3, repleted. 4.4 at discharge Status at Discharge Cognitive/behavioral status at discharge: A&OX3 Time Spent with Patient Time attestation: Total time spent providing and/or coordinating discharge services: Exam Narrative: General - Awake and alert. No acute distress Eyes - PERRLA, EOM intact ENT - No thrush, No erythema Neck - No noticeable or palpable swelling Lymph Nodes - No lymphadenopathy Cardiovascular - RRR no m/r/g, no JVD Lungs: No air movement LLL , No wheezing, use of accessory muscles, no crackles or wheezes. Skin - Skin warm and dry, no wounds or rashes Abdomen - Normal bowel sounds, abdomen soft and nontender Extremities - No edema, cyanosis or clubbing Musculoskeletal - 5/5 strength, normal range of motion, no swollen or erythem atous joints. Neurological ? Alert and oriented x 3, CN 2-12 grossly intact. Psych: Normal mood and affect DS: Data Data Completed and Pending Labs on day of discharge: Labs from last 24 hours 11/30/24 04:02 WBC 9.6 RBC 3.64 L Hgb 11.4 L Hct 33.8 L MCV 92.9 MCH 31.3 MCHC 33.7 RDW 12.6 Plt Count 223 MPV 11.5 H Immature Gran % (Auto) 0.3 Neut % (Auto) 52.4 Lymph % (Auto) 23.7 [place] % (Auto) 8.9 H Eos % (Auto) 14.1 H Baso % (Auto) 0.6 Lymph # (Auto) 2.27 [place] # (Auto) 0.9 H Eos # (Auto) 1.4 H Baso # (Auto) 0.1 Abs Immat Gran (auto) 0.03 Absolute Neuts (auto) 5.0 Absolute Nucleated RBC 0.000 Nucleated RBC % 0.0 Sodium 138 Potassium 4.0 Chloride 103 Carbon Dioxide 27 Anion Gap 8 BUN 10 Creatinine 0.71 Estim Creat Clear Calc 42 Estimated GFR > 60 Glucose 95 Calcium 9.1 Total Bilirubin 0.4 AST 27 ALT 19 Alkaline Phosphatase 85 Total Protein 6.0 L Albumin 3.1 L Preliminary micro results at discharge 11/28/24 11:25 Blood Culture - Preliminary Blood 11/28/24 11:17 Blood Culture - Preliminary Blood Discharge Plan Discharge Attending physician on discharge: Ina Mota Consulting providers: Jhon Dickey; Denise Irvin Discharging Clinician: Ina Mota Anticipated Discharge Date/Time: 11/30/24 16:23 Patient Disposition: Home, Self-Care Activity: february shower Diet: regular Discharge Instructions: Vest therapy: Biwaze Clear therapy through [facility] BID Acapella or Cornet flutter valve 4 times a day Patient Instructions: Antibiotic Form, Heparin/Sodium Chloride (By injection) Patient Language: Tanzanian Stand Alone Forms: General Discharge Information Follow-up/Referrals: Bella Swain MD [Primary Care Provider] - Denise Irvin MD [Physician] - Jhon Dickey MD [Physician] - Discharge Medications: New acetaminophen 325 mg Tablet 650 mg PO Q4H PRN (Reason: Mild Pain (1-3) Or Fever) 60 Days Qty: 60 0RF amoxicillin-pot clavulanate 875-125 mg tablet 1 tablet PO Q12H Qty: 8 0RF ipratropium-albuterol 0.5 mg-3 mg(2.5 mg base)/3 mL Solution For Nebulization 3 ml inhalation BID 60 Days Qty: 180 3RF metoprolol tartrate 25 mg Tablet 25 mg PO Q12HR 60 Days Qty: 120 0RF guaifenesin 1,200 mg tablet extended release 12hr 1,200 mg PO BID Qty: 60 1RF atorvastatin 40 mg Tablet 40 mg PO DAILY 60 Days Qty: 60 1RF azithromycin [Zithromax] 250 mg Tablet 250 mg PO QHS 2 Days Qty: 2 0RF Continued diltiazem HCl 90 mg tablet 45 mg PO BID levalbuterol tartrate [Xopenex HFA] 45 mcg/actuation HFA aerosol inhaler 1 puff inhalation Q6H PRN (Reason: Dyspnea) ibuprofen [Advil] 200 mg tablet 400 mg PO Q6H PRN (Reason: Pain) calcium carbonate [Tums] 200 mg calcium (500 mg) tablet,chewable 200 mg PO TID PRN (Reason: Indigestion) fluticasone propion-salmeterol 250-50 mcg/dose blister with device See Rx Instructions .ROUTE .COMPLEX 90 Days Qty: 180 3RF Dose Instruction: INHALE 1 PUFF TWICE A DAY Rx Instructions: INHALE 1 PUFF TWICE A DAY, RINSE AND SPIT Date of admission: 11/28/24 17:38 Primary Care Provider: Bella Swain Admitting Provider: Mel Pierre Attending physician on admission: Ina Mota Condition: Stable Quality VTE Prophylaxis VTE prophylaxis: mechanical ordered Hospitalist MIPS Heart Failure (Exclusion) Patient has history of Heart Transplant or Left Ventricular Assistive Device?: No IF YES, STOP HERE Heart Failure (Qualifier) Patient has current or prior documentation of LVEF less than or equal to 40%, or mod/servere depressed LVSF?: No IF NO, STOP HERE
[2024-12-01 17:13] LABS: Pneumococcal Antigen Urine NOT DETECTED
[2024-12-01 19:02] LABS: Adenovirus DNA Not Detected (Not Detected); Chlamydophila pneumoniae Not Detected (Not Detected); Coronavirus 229E Not Detected (Not Detected); Coronavirus HKU1 Not Detected (Not Detected); Coronavirus NL63 Not Detected (Not Detected); Coronavirus OC43 Not Detected (Not Detected); Human Metapneumovirus Not Detected (Not Detected); Human Parainfluenza Virus 1 Not Detected (Not Detected); Human Parainfluenza Virus 2 Not Detected (Not Detected); Human Parainfluenza Virus 3 Not Detected (Not Detected); Human Parainfluenza Virus 4 Not Detected (Not Detected); Human RSV B Not Detected (Not Detected); Influenza A Not Detected (Not Detected); Influenza B Not Detected (Not Detected); Mycoplasma pneumoniae Not Detected (Not Detected); Rhinovirus/Enterovirus Not Detected (Not Detected)
[2024-12-04 11:33] LABS: Mycoplasma IgM Antibody Titer 41 U/mL
== END 2024-11-30 18:36 | disposition home or self-care (01) | DRG 206 ==
LOC: ANHED 22:32 → ANHIMU 11-28 00:34
PROVIDERS: Internal Medicine Pulmonary Disease; Nurse Practitioner Adult Health; Student in an Organized Health Care Education/Training Program; Admitting Provider General Practice; Emergency Provider Student in an Organized Health Care Education/Training Program; PCP Internal Medicine; Visit Provider Nurse Practitioner Acute Care
DX: J98.19 Other pulmonary collapse (principal); T17.890A Other foreign object in other parts of respiratory tract causing asphyxiation, initial encounter; I5A Non-ischemic myocardial injury (non-traumatic); A31.0 Pulmonary mycobacterial infection; J47.9 Bronchiectasis, uncomplicated; J45.909 Unspecified asthma, uncomplicated; E87.6 Hypokalemia; K21.9 Gastro-esophageal reflux disease without esophagitis; M81.0 Age-related osteoporosis without current pathological fracture; M19.90 Unspecified osteoarthritis, unspecified site; Z20.822 Contact with and (suspected) exposure to COVID-19
CPT/HCPCS: 36415; 71045; 80048; 80053; 80061; 83735; 84145; 84484; 85025; 85380; 85610; 85730; 86738; 87040; 87449; 87633; 87637; 87641; 87899; 93005; 93306; 94640; 94669; 96365; 96375; 96376; 99285; A9270; G0378; J0456; J0696; J1644; J2185; J2405; J3475

== ENCOUNTER 2024-12-18 12:53 | Outpatient (CLI) | payer MEDICARE, SELFPAY | END 2024-12-18 12:54 | disposition home or self-care (01) | LOC: CHSIMG 12:55 | PROVIDERS: PCP Internal Medicine; Visit Provider Internal Medicine | DX: J18.9 Pneumonia, unspecified organism (principal); Z78.0 Asymptomatic menopausal state; M85.89 Other specified disorders of bone density and structure, multiple sites; R91.8 Other nonspecific abnormal finding of lung field | CPT/HCPCS: 71046; 77080 ==

== ENCOUNTER 2025-01-03 12:52 | Outpatient (CLI) | payer MEDICARE, SELFPAY ==
[2025-01-03 13:10] VITALS: BP 115/62; PULSE 79; RESP 18; TEMP 36.6
[2025-01-03 13:11] VITALS: BMI 18.5
--- OUTSIDE RECORDS SUMMARY | 2025-01-03 13:18 | XMS_ITS | Continuity of Care Document ---
Author Organization [facility] Address [address] [place] [address] Phone Care Team Providers Care Pad Machine Feeder Name Role Phone Unavailable Unavailable Unavailable Procedures Procedure Date MRI BRAIN WO/W CONTRAST Advance Directives Directive Yes / No Effective Date File Name No Information Encounters Encounter Description Practice Location Reason(s) For Visit Diagnoses Date Provider Providers Copied on Encounter [facility], [address] [place], [place], [id number], [place] tel:[phone] [facility] No Information 3 No Information [facility] [place], [address] [place], [place], [id number], [place] tel:[phone] [facility] No Information [address] [place], [place], [id number], [place]. tel:[phone] Referring Provider: Benoit Agosto, [address], [address]. tel:[phone] Family History Family Member Type Diagnosis Age At Onset No Information Payers Payer name Insurance type Covered constitution party ID Authoriza tion(s) HUMANA PRIME STANDAR D AND SELECT [id number] Social History Type Description Quantity Date Captured [...]
--- OUTSIDE RECORDS SUMMARY | 2025-01-03 13:18 | XMS_ITS | Clinical Summary ---
Author Organization [facility] Address [address] [place] [address] Care Team Providers Care Poultry Field Service Technician Name Role Phone Bella Swain MD Primary Care Provider [phone] Allergies No known active allergies Medications SYMBICORT [...] Comments Blood Pressure 135/72 09/24/2020 10:30 AM PRODUCT APPLICATIONS SCIENTIST Pulse 75 09/24/2020 10:30 AM PRODUCT APPLICATIONS SCIENTIST Temperature 36.7 C (98.1 F) 09/24/2020 6:34 AM PRODUCT APPLICATIONS SCIENTIST Respiratory Rate 18 09/24/2020 10:30 AM PRODUCT APPLICATIONS SCIENTIST Oxygen Saturation 99% 09/24/2020 10:30 AM PRODUCT APPLICATIONS SCIENTIST Inhaled Oxygen Concentration - - Weight 51.3 kg (113 lb) 09/24/2020 6:34 AM PRODUCT APPLICATIONS SCIENTIST Height 162.6 cm (5' 4 ) 09/24/2020 6:34 AM PRODUCT APPLICATIONS SCIENTIST Body Mass Index 19.4 09/24/2020 6:34 AM PRODUCT APPLICATIONS SCIENTIST Plan of Treatment Health Maintenance Due Date [...] complete this topic Insurance AETNA Care Teams Poultry Field Service Technician Relationship Specialty Start Date End Date Bella Swain MD [address] [place] [id number] PCP - General INTERNAL MEDICINE 09/18/20
--- OUTSIDE RECORDS SUMMARY | 2025-01-03 13:18 | XMS_ITS | Clinical Summary ---
Author Organization [facility] Address [address] [place] [address] Phone Care Team Providers Care Manager Heart Failure Name Role Phone Bella Swain MD Primary Care Provider [phone] Social History Tobacco Use Types Packs/Day Years [...] 2013 Influenza Vaccine (#1) 2024 Care Teams Manager Heart Failure Relationship Specialty Start Date End Date Bella Swain MD [address] [place] [address] PCP - General Internal Medicine 12/04/20
--- OUTSIDE RECORDS SUMMARY | 2025-01-03 13:18 | XMS_ITS | CONTINUITY OF CARE DOCUMENT ---
Author Name eris schulte Address Unknown Organization [facility] Address [address] [facility] [address] [place] [address] Phone [phone] Care Team Providers Care Licensed Dispensing Optician Name Role Phone Christopher ALAS, Elvira Unavailable [phone] CHRISTIANA PARKER MD Unavailable CHRISTIANA PARKER MD [...] Mihai He MD Hyperlipidemia active Alexandru Chen POST EXCHANGE MANAGER ENCOUNTERS Date Type Provider Location Encounter Diag nosis - In-person encounter Office Visit Elvira White MD [facility] Hyperlipidemia - In-person encounter Office Visit Mihai He MD [facility] Abnormal nuclear stress testCAD, mild - In-person encounter Office Visit Elvira White MD [facility] Cardiology examinationAortic regurgitation, moderateShortness of breath - In-person encounter Office Visit Elvira White MD [facility] PalpitationsHx of supraventricular tachycardia (SVT)Asthma VITAL [...] /min Marilee Powers pulse rate 76 /[facility]&M 109 [lb_av] [facility] height E&M 64 [in_i] [facility] Body Mass Index (Ratio) 19.57 kg/m2 [...] pressure, cuff size regular Maria Luz houser [place] blood pressure, diastolic 88 mm[Hg] Maria Luz [facility] blood pressure, systolic 148 mm[Hg] Geovani [facility] pulse rate 90 /min [facility] oxygen saturation, oximetry 94 % [facility] respiratory rate E&M 16 /min Kiera Johnson [facility] weight E&M 109 [lb_av] [facility] height E&M 64 [in_i] [facility] Body Mass Index (Ratio) 52.69 kg/m2 Kirt White MD blood pressure, diastolic 81 mm[Hg] [facility] blood pressure, systolic 137 mm[Hg] Enriqueta [...] Payer name Policy type / Coverage type [place] red constitution party ID AETNA HEALTHCARE Other AETNA MEDICARE FAYE PPO Medicare [id number] ADVANCE DIRECTIVES Name Date DISCUSSED - NO DECISION MADE TREATMENT PLAN Date Name Performer Cardiology: L ast LDL 121 (11/2023) W ill start Rosuvastatin and repeat labs in 1 year Alexandru Chen NP Cardiology: L ast echo 11/2023 Alexandru Chen NP Cardiology: S hortness of breath at baseline with Asthma Alexandru Chen POST EXCHANGE MANAGER Cardiology: N o current episodes H er updated medication list for this problem includes: Diltiazem Hcl 90 Mg Tablet (Diltiazem hcl) ..... Take 1/2 tablet by mouth twice daily Alexandru Chen POST EXCHANGE MANAGER Cardiology: N o angina. Continue current medications. H er updated medication list for this problem includes: Diltiazem Hcl 90 Mg Tablet (Diltiazem hcl) ..... Take 1/2 tablet by mouth twice daily Alexandru Chen POST EXCHANGE MANAGER Cardiology: H er updated medication list for this problem includes: Diltiazem Hcl 90 Mg Tablet (Diltiazem hcl) ..... Take 1/2 tablet by mouth twice daily Ethan Gandaraserge Cardiology: H er updated medication list for this problem includes: Diltiazem Hcl 90 Mg Tablet (Diltiazem hcl) ..... Take 1/2 tablet by mouth twice daily [facility] Electrophysiology:ab normal stress nuclear, will proceed with cath given she is symptomatic. [facility] Electrophysiology:as sessed on Echo, she is SOB, may be attributable to her AI. [facility] Electrophysiology:Ec ho showed normal LVF. Stress showed moderate area of ischemia, attenuation could not be ruled out. R ecommend pt undergo cardiac cath with aortagram to rule out the ischemia seen on stress test, and to assess her AI more precisely. D iscussed risks and benefits, she was agreeable. [facility] Electrophysiology:Ec ho showed normal LVF. Stress showed moderate area of ischemia, attenuation could not be ruled out. Recommend cardiac cath [facility] Electrophysiology:Oc casional SOB associated with asthma. [...]
[2025-01-03] MEDS: ZOLEDRONIC ACID 5 MG/100 ML 100 ML 400 MG IVPB (13:50)
== END 2025-01-03 12:53 | disposition home or self-care (01) ==
LOC: CHSTREATRM 12:54
PROVIDERS: PCP Internal Medicine; Visit Provider Internal Medicine
DX: M81.0 Age-related osteoporosis without current pathological fracture (principal)
CPT/HCPCS: 96374; J3489

== ENCOUNTER 2025-03-26 13:56 | Outpatient (CLI) | payer MEDICARE, SELFPAY ==
--- NOTE | ~2025-03-26 | XR_ITS ---
XR chest 2V 03/26/2025 14:24 Indication: Hemoptysis Procedure: 2 view chest Comparison: Comparison to multiple prior studies sequentially, with oldest reviewed study dated 11/29. Findings: Heart size normal. There is posterior basilar airspace disease which may represent atelecta sis or developing pneumonia. The lungs are hyperinflated which is consistent with, but not diagnostic of chronic obstructive pulmonary disease. There are healed right rib fractures. Impression: 1: Posterior basilar airspace disease, best seen on lateral view, atelectasis versus pneumonia. Reviewed, dictated and finalized at location B. Impression: 1: Posterior basilar airspace disease, best seen on lateral view, atelectasis v ersus pneumonia.
[2025-03-26 14:13] LABS: Hematocrit 38.5 % (35.0-42.0); Hemoglobin 12.5 g/dL (11.7-13.8); Mean Corpuscular HGB Conc 32.5 g/dL (32-36); Mean Corpuscular Hemoglobin 31.1 pg (27.0-31.0); Mean Corpuscular Volume 95.8 fL (78.0-102.0); Mean Platelet Volume 10.5 fl (9.2-11.8); Platelet Count Result 221 K/mm3 (150-420); Red Blood Count 4.02 M/mm3 (4.20-5.40)
[2025-03-26 15:06] LABS: Alanine Aminotransferase 22 U/L (6-35); Albumin Level 4.4 g/dL (3.5-5.1); Alkaline Phosphatase 81 U/L (38-126); Anion Gap 5 mmol/L (4-12); Aspartate Amino Transferase 40 U/L (14-36); Bilirubin,Total 0.5 mg/dL (0.2-1.3); Blood Urea Nitrogen 16 mg/dL (7-17); Calcium 9.2 mg/dL (8.4-10.2); Carbon Dioxide 26 mmol/L (22-30); Chloride 109 mmol/L (98-107); Estimated Glomerular Filt Rate > 60; Glucose 82 mg/dL (65-110); Osmolality Calculated 290 mOsm/kg (285-295); Potassium 4.3 mmol/L (3.4-5.0); Sodium 140 mmol/L (137-145); Total Protein 6.4 g/dL (6.3-8.2)
--- OUTSIDE RECORDS SUMMARY | 2025-03-26 15:15 | XMS_ITS | Clinical Summary ---
Author Organization [facility] Address [address] [place] [address] Phone Care Team Providers Care Printmaker Name Role Phone Bella Swain MD Primary Care Provider [phone] Social History Tobacco Use Types Packs/Day Years Used Date Smoking Tobacco: Never Assessed Comments Unknown Sex and Gender Information Value Date Recorded Sex Assigned at Not on file Legal Sex Female 2:19 PM [facility] Gender Identity Not on file Sexual Orientation Not on file Plan of Treatment Health Maintenance Due Date Last Done Comments Pneumococcal PPSV23/PCV13 65 + Years / Low and Medium Risk (1 of 4 - PCV) 1998 Influenza Vaccine (Season Ended) 2025 Care Teams Printmaker Relationship Specialty Start Date End Date Bella Swain MD [address] [place] [id number] PCP - General Internal Medicine 12/04/20
--- OUTSIDE RECORDS SUMMARY | 2025-03-26 15:15 | XMS_ITS | Continuity of Care Document ---
Author Organization [facility] Address [address] [place] [address] Phone Care Team Providers Care Pc Maintenance Technician Name Role Phone Unavailable Unavailable Unavailable Procedures Procedure Date MRI BRAIN WO/W CONTRAST Advance Directives Directive Yes / No Effective Date File Name No Information Encounters Encounter Description Practice Location Reason(s) For Visit Diagnoses Date Provider Providers Copied on Encounter [facility], [address] [place], [place], [id number], [place] tel:[phone] [facility] No Information 3 No Information [facility], [address] [place], [place], [id number], [place] tel:[phone] [facility] No Information [address] [place], [place], [id number], [place]. tel:[phone] Referring Provider: Benoit Agosto, [address], [address]. tel:[phone] Family History Family Member Type Diagnosis Age At Onset No Information Payers Payer name Insurance type Covered republican ID Authoriza tion(s) HUMANA PRIME STANDAR D AND SELECT [id number] Social History Type Description Quantity Date Captured [...]
== END 2025-03-26 13:57 | disposition home or self-care (01) ==
PROVIDERS: PCP Internal Medicine; Visit Provider Internal Medicine
DX: R04.2 Hemoptysis (principal); J47.9 Bronchiectasis, uncomplicated
CPT/HCPCS: 36415; 71046; 80053; 85027

== ENCOUNTER 2025-04-03 13:18 | Outpatient (CLI) | payer MEDICARE, SELFPAY ==
--- NOTE | ~2025-04-03 | CT_ITS ---
CT Scan of the Chest without Contrast: Clinical Indication: Pneumonia Technique: Contiguous sections were acquired throughout the chest without intravenous contrast. Dose reduction technique was used on this scan by utilizing automated exposure control and iterative recon struction technique. The dose-length product (DLP) was 128.87 mGy-cm. COMPARISON: 11/27/2024 Findings: There is no evidence of any significant mediastinal, hilar or axillary lymphadenopathy. The mediastin al soft tissues appear normal. There is no evidence of pleural or pericardial effusion. Stable biapical scarring. There are irregular tree-in-bud opacities and mild patchy ground glass opac ities probably at the anterior inferior right upper lobe, right lower lobe, right middle lobe, and li ngula. There are chronic scarring interstitial changes in the bilateral lower lobes peripherally. Images through the upper abdomen reveal no abnormalities. Impression: Findings compatible with acute on chronic small airways infectious process, as above, similar to prio r exam. There is near complete reexpansion of the left lower lobe as compared to prior exam. Reviewed, dictated and finalized at location M. Impression: Findings compatible with acute on chronic small airways infectious process, as above, similar to prior exam. There is near complete reexpansion of the left lo wer lobe as compared to prior exam.
--- OUTSIDE RECORDS SUMMARY | 2025-04-03 14:52 | XMS_ITS | CONTINUITY OF CARE DOCUMENT ---
Author Name eris schulte Address Unknown Organization [facility] Address [address] [place] [address] Phone [phone] Care Team Providers Care Retail Selling Floor Leader Name Role Phone Christopher ALAS, Elvira Unavailable [phone] CHRISTIANA PARKER MD Unavailable CHRISTIANA PARKER MD [...] In-person encounter Office Visit Elvira White MD [facility] Hyperlipidemia - In-person encounter Office Visit Mihai He MD [facility] Abnormal nuclear stress testCAD, mild - In-person encounter Office Visit Elvira White MD [facility] Cardiology examinationAortic regurgitation, moderateShortness of breath - In-person encounter Office Visit Elvira White MD [facility] PalpitationsHx of supraventricular tachycardia (SVT)Asthma VITAL [...] /min Marilee Powers pulse rate 76 /min [facility] weight E&M 109 [lb_av] [facility] height E&M 64 [in_i] [facility] Body Mass Index (Ratio) 19.57 kg/m2 Randy [...] blood pressure, cuff size regular Maria Luz [facility] blood pressure, diastolic 88 mm[Hg] Maria Luz [facility] blood pressure, systolic 148 mm[Hg] Geovani [facility] pulse rate 90 /min [facility] oxygen saturation, oximetry 94 % [facility] respiratory rate E&M 16 /min Kiera Johnson [facility] weight E&M 109 [lb_av] [facility] height E&M 64 [in_i] [facility] Body Mass Index (Ratio) 52.69 kg/m2 Kirt White MD blood pressure, diastolic 81 mm[Hg] [facility] blood pressure, systolic 137 mm[Hg] Enriqueta blood pressure, cuff size regular Red rret blood pressure, diastolic 81 mm[Hg] Red rret blood pressure, systolic 137 mm[Hg] Dustin ret pulse rate 78 /min Vinicius erda y height E&M 64 [in_i] Vinicius erda y oxygen saturation, oximetry 95 % Vinicius respiratory rate E&M 12 /min Vinicius weight E&M 307 [lb_av] Vinicius y ALLERGIES Allergy Name Onset Date Reaction Criticality Status SEASONAL Low Criticality active HISTORY OF MEDICATION USE Medication Status Instructions Dates Provider Indications Com ments diltiazem HCl 90 mg tablet active TAKE 1 TABLET BY MOUTH TWICE A DAY Tahira Burnett rosuvastatin 10 mg tablet active TAKE 1 TABLET BY MOUTH EVERY DAY Alexandru Chen NP multivitamin tablet active Take 3 tablet by mouth once a day Alexandru Chen NP diltiazem HCl 90 mg tablet completed Take 1/2 tablet by mouth twice daily - Tahira Burnett magnesium oxide 200 mg magnesium tablet completed Take 1 tablet by mouth twice a day - Alexandru Chen NP magnesium oxide 400 mg magnesium tablet completed Take 1 tablet by mouth twice a day - Ethan Sharma Wixela Inhub 500-50 mcg/dose blister with device active INHALE 1 PUFF INTO THE LUNGS TWICE A DAY 12 HOURS APART AND AT THE SAME TIME EACH DAY Ree Silas levalbuterol tartrate 45 mcg/actuation HFA aerosol inhaler active INHALE 2 PUFFS (90 MCG) EVERY 6 HOURS Ree Silas celecoxib 200 mg capsule completed TAKE 1 CAPSULE (200 MG) BY MOUTH EVERY DAY - Alexandru Chen NP SOCIAL HISTORY Date Observation [...] smoker Kiera Cruz smoking status Never smoker Vinicuis sinha FUNCTIONAL STATUS Date Observation Value Provider HRA, CV Assess/Plan, Angina (inactive) Management Plan continue current therapy Alexandru Chen NP INSURANCE PROVIDERS Payer name Policy type / Coverage type [place] red constitution party ID [employer] Other AETNA MEDICARE FAYE PPO Medicare [id number] ADVANCE DIRECTIVES Name Date DISCUSSED - NO DECISION MADE TREATMENT PLAN Date Name Performer Cardiology: L ast LDL 121 (11/2023) W ill start Rosuvastatin and repeat labs in 1 year Alexandru Chen NP Cardiology: L ast echo 11/2023 Alexandru Chen PAPER BAG PRESS OPERATOR Cardiology: S hortness of breath at baseline with Asthma Alexandru Chen PAPER BAG PRESS OPERATOR Cardiology: N o current episodes H er updated medication list for this problem includes: Diltiazem Hcl 90 Mg Tablet (Diltiazem hcl) ..... Take 1/2 tablet by mouth twice daily Alexandru Chen VICKY Cardiology: N o angina. Continue current medications. H er updated medication list for this problem includes: Diltiazem Hcl 90 Mg Tablet (Diltiazem hcl) ..... Take 1/2 tablet by mouth twice daily Alexandru Chen PAPER BAG PRESS OPERATOR Cardiology: H er updated medication list for this problem includes: Diltiazem Hcl 90 Mg Tablet (Diltiazem hcl) ..... Take 1/2 tablet by mouth twice daily Ethan Ahcharley Cardiology: H er updated medication list for this problem includes: Diltiazem Hcl 90 Mg Tablet (Diltiazem hcl) ..... Take 1/2 tablet by mouth twice daily Ethannathan Sharma Cardiology [facility] Electrophysiology:ab normal stress nuclear, will proceed with cath given she is symptomatic. [facility] Elect[facility]:as sessed on Echo, she is SOB, may be attributable to her AI. [facility] Electrophysiology:Ec ho showed normal LVF. Stress showed moderate area of ischemia, attenuation could not be ruled out. R ecommend pt undergo cardiac cath with aortagram to rule out the ischemia seen on stress test, and to assess her AI more precisely. D iscussed risks and benefits, she was agreeable. [facility]:Ec ho showed normal LVF. Stress showed moderate area of ischemia, attenuation could not be ruled out. Recommend cardiac cath [facility] Electrophysiology:Oc casional SOB associated with asthma. Her [...] Oxide 400mg bid. Obtain stress test/echo. Discussed ILDarby Rosen Electrophysiology:Oc casional SOB associated with asthma. [...]
--- OUTSIDE RECORDS SUMMARY | 2025-04-03 14:53 | XMS_ITS | Continuity of Care Document ---
Author Organization [facility] Address [address] [place] [address] Phone Care Team Providers Care Fire Manager Name Role Phone Unavailable Unavailable Unavailable Procedures Procedure Date MRI BRAIN WO/W CONTRAST Advance Directives Directive Yes / No Effective Date File Name No Information Encounters Encounter Description Practice Location Reason(s) For Visit Diagnoses Date Provider Providers Copied on Encounter [facility], [address] [place], [place], [id number], [place] tel:[phone] [facility] No Information 3 No Information [facility] [place], [address] [place], [place], [id number], [place] tel:[phone] [facility] No Information [address] [place], [place], [id number], [place]. tel:[phone] Referring Provider: Benoit Agosto, [address], [address]. tel:[phone] Family History Family Member Type Diagnosis Age At Onset No Information Payers Payer name Insurance type Covered green party ID Authoriza tion(s) [employer] PRIME STANDAR D AND [employer] [id number] Social History Type Description Quantity Date Captured [...]
--- OUTSIDE RECORDS SUMMARY | 2025-04-03 14:53 | XMS_ITS | Clinical Summary ---
Author Organization [facility] Address [address] [place] [address] Phone Care Team Providers Care Hvac Service Technician Name Role Phone Bella Swain MD Primary Care Provider [phone] Social History Tobacco Use Types Packs/Day Years Used Date Smoking Tobacco: Never Assessed Comments Unknown Sex and Gender Information Value Date Recorded Sex Assigned at Not on file Legal Sex Female 2:19 PM [facility] Gender Identity Not on file Sexual Orientation Not on file Plan of Treatment Health Maintenance Due Date Last Done Comments Pneumococcal PPSV23/PCV13 65 + Years / Low and Medium Risk (1 of 4 - PCV) 1998 Influenza Vaccine (Season Ended) 2025 Care Teams Hvac Service Technician Relationship Specialty Start Date End Date Bella Swain MD [address] [place] [id number] PCP - General Internal Medicine 12/04/20
== END 2025-04-03 13:19 | disposition home or self-care (01) ==
LOC: CHSIMG 13:19
PROVIDERS: PCP Internal Medicine; Visit Provider Internal Medicine
DX: J18.9 Pneumonia, unspecified organism (principal)
CPT/HCPCS: 71250

== ENCOUNTER 2025-04-14 15:12 | Outpatient (NON) | payer MEDICARE, SELFPAY ==
--- NOTE | 2025-04-14 | CY_PTH ---
PATIENT: Dawn Burgess LOC: [facility] U#:[id number] AGE/SX: 74/F ROOM: RE04/14/[address]: Bella Swain MD : [id number] BED: DIS: 04/14/2025 SPEC #: [id number] RECD: 04/15/25 16:49 STATUS: WAYNE REPa #: [id number] JERRICA: 04/14/25 00:[address]: Bella Swain DEPT: [facility] Cytology RECD BY: Yi Batres MLT, ([facility]) Tissues: A - Thin Prep Non-Gyne Procedures: Thin Prep Non-supervisor tile and mottle
== END 2025-04-14 15:13 | disposition home or self-care (01) ==
LOC: CHSLAB 15:13
PROVIDERS: Visit Provider Internal Medicine
DX: R04.2 Hemoptysis (principal); J47.9 Bronchiectasis, uncomplicated
CPT/HCPCS: 87070; 87147; 87186; 87205; 88112

== ENCOUNTER 2025-07-25 09:09 | Outpatient (CLI) | payer MEDICARE, SELFPAY ==
[2025-07-25 09:29] LABS: Hematocrit 40.4 % (35.0-42.0); Hemoglobin 13.1 g/dL (11.7-13.8); Mean Corpuscular HGB Conc 32.4 g/dL (32-36); Mean Corpuscular Hemoglobin 31.2 pg (27.0-31.0); Mean Corpuscular Volume 96.2 fL (78.0-102.0); Platelet Count Result 244 K/mm3 (150-420); Red Blood Count 4.20 M/mm3 (4.20-5.40); White Blood Count 12.2 K/mm3 (4.8-10.8)
[2025-07-25 09:30] LABS: Add Urine Microscopic? YES; Appearance Urine Clear (Clear); Glucose Urine UA Negative (Negative); Leukocyte Esterase Ur 2+ (Negative); Nitrate Urine Negative (Negative); Specific Grav Ur 1.015 (1.010-1.020)
[2025-07-25 09:59] LABS: Alanine Aminotransferase 21 U/L (6-35); Albumin Level 4.4 g/dL (3.5-5.1); Alkaline Phosphatase 80 U/L (38-126); Anion Gap 10 mmol/L (4-12); Aspartate Amino Transferase 38 U/L (14-36); Bilirubin,Total 0.6 mg/dL (0.2-1.3); Blood Urea Nitrogen 15 mg/dL (7-17); Calcium 9.9 mg/dL (8.4-10.2); Carbon Dioxide 27 mmol/L (22-30); Chloride 106 mmol/L (98-107); Cholesterol 197 mg/dL (0-200); Creatine Kinase 178 U/L (30-135); Estimated Glomerular Filt Rate > 60; Glucose 78 mg/dL (65-110); HDL Direct 74 mg/dL; Iron 126 ug/dL (37-170); Magnesium 1.9 mg/dL (1.6-2.3); Osmolality Calculated 295 mOsm/kg (285-295); Potassium 4.4 mmol/L (3.4-5.0); Sodium 143 mmol/L (137-145); Total Protein 8.2 g/dL (6.3-8.2); Triglycerides 104 mg/dL (<150)
[2025-07-25 10:16] LABS: Free T4 Free Thyroxine 1.02 ng/dL (0.78-2.19)
[2025-07-25 10:17] LABS: Free T3 3.26 pg/mL (2.18-3.98)
[2025-07-25 10:30] LABS: Thyroid Stimulating Hormone 2.530 uIU/mL (0.465-4.680)
[2025-07-25 10:34] LABS: Ferritin 68.30 ng/mL (11.1-264)
[2025-07-25 10:49] LABS: Vitamin B12 615.0 pg/mL (239-931)
== END 2025-07-25 09:10 | disposition home or self-care (01) ==
LOC: CHSLAB 09:13
PROVIDERS: PCP Internal Medicine; Visit Provider Internal Medicine Cardiovascular Disease
DX: R53.82 Chronic fatigue, unspecified (principal); M15.9 Polyosteoarthritis, unspecified; E78.00 Pure hypercholesterolemia, unspecified; I47.10 Supraventricular tachycardia, unspecified; M81.0 Age-related osteoporosis without current pathological fracture
CPT/HCPCS: 36415; 80053; 80061; 81001; 82306; 82550; 82607; 82728; 83540; 83735; 84439; 84443; 84481; 85027

== ENCOUNTER 2025-08-14 15:56 | Outpatient (CLI) | payer MEDICARE, SELFPAY ==
--- OUTSIDE RECORDS SUMMARY | 2013-03-02 08:25 | XMS_ITS | Continuity of Care Document ---
Author Organization [facility] Address [address] [place] [address] Phone Care Team Providers Care Ager Tender Name Role Phone Unavailable Unavailable Unavailable Procedures Procedure Date MRI BRAIN WO/W CONTRAST Advance Directives Directive Yes / No Effective Date File Name No Information Encounters Encounter Description Practice Location Reason(s) For Visit Diagnoses Date Provider Providers Copied on Encounter [facility], [address] [place], [place], [id number], [place] tel:[phone] [facility] No Information 3 No Information [facility], [address] [place], [place], [id number], [place] tel:[phone] [facility] No Information 3 No Information Referring Provider: Benoit Agosto, [address], [address]. tel:[phone] Family History Family Member Type Diagnosis Age At Onset No Information Payers Payer name Insurance type Covered alliance party ID Authoriza tion(s) HU[employer] PRIME STANDAR D AND SELECT [id number] Social History Type Description Quantity Date Captured [...]
--- NOTE | ~2025-08-14 | XR_ITS ---
EXAMINATION: XR chest 2V, 08/14/2025 16:15 CDT HISTORY: DYSNPEA, CHRONIC COUGH ACUTE WORSENING COMPARISON: No comparisons available. Technique: 2 views obtained. Findings: COPD changes are noted with basilar infiltrates. No pneumothorax. Heart is normal size. Mediastinal and hilar contours are within normal limits. Bony thorax no acute abnormality. Impression: Bilateral pneumonia Reviewed, dictated and finalized at location P. Impression: Bilateral pneumonia
[2025-08-14 16:14] LABS: Hematocrit 39.5 % (35.0-42.0); Hemoglobin 12.7 g/dL (11.7-13.8); Mean Corpuscular HGB Conc 32.2 g/dL (32-36); Mean Corpuscular Hemoglobin 31.2 pg (27.0-31.0); Mean Corpuscular Volume 97.1 fL (78.0-102.0); Platelet Count Result 277 K/mm3 (150-420); Red Blood Count 4.07 M/mm3 (4.20-5.40); White Blood Count 12.3 K/mm3 (4.8-10.8)
[2025-08-14 16:44] LABS: Alanine Aminotransferase 18 U/L (6-35); Albumin Level 4.4 g/dL (3.5-5.1); Alkaline Phosphatase 97 U/L (38-126); Anion Gap 11 mmol/L (4-12); Aspartate Amino Transferase 31 U/L (14-36); Bilirubin,Total 0.5 mg/dL (0.2-1.3); Blood Urea Nitrogen 17 mg/dL (7-17); Calcium 9.5 mg/dL (8.4-10.2); Carbon Dioxide 23 mmol/L (22-30); Chloride 108 mmol/L (98-107); Estimated Glomerular Filt Rate 58; Glucose 89 mg/dL (65-110); Osmolality Calculated 294 mOsm/kg (285-295); Potassium 4.0 mmol/L (3.4-5.0); Sodium 142 mmol/L (137-145); Total Protein 7.1 g/dL (6.3-8.2)
[2025-08-14 16:53] LABS: NT Pro B Type Natriuretic Pept 274 pg/mL (19.9-100)
--- OUTSIDE RECORDS SUMMARY | 2025-08-14 17:50 | XMS_ITS | Clinical Summary ---
Author Organization [facility] Address [address] [place] [address] Phone Care Team Providers Care Roll Line Operator Name Role Phone Bella Swain MD Primary Care Provider [phone] Social History Tobacco Use Types Packs/Day Years Used Date Smoking Tobacco: Never Assessed Comments Unknown Sex and Gender Information Value Date Recorded Sex Assigned at Not on file Legal Sex Female 2:19 PM [facility] Gender Identity Not on file Sexual Orientation Not on file Plan of Treatment Health Maintenance Due Date Last Done Comments Pneumococcal PPSV23/PCV13 65 + Years / Low and Medium Risk (1 of 2 - PCV) 1998 Influenza Vaccine (#1) 2025 Care Teams Roll Line Operator Relationship Specialty Start Date End Date Bella Swain MD [address] [place] [address] PCP - General Internal Medicine 12/04/20
--- OUTSIDE RECORDS SUMMARY | 2025-08-14 17:50 | XMS_ITS | Clinical Summary ---
Author Organization [facility] Address [address] [place] [address] Care Team Providers Care Membership Sales Manager Name Role Phone Bella Swain MD Primary Care Provider [phone] Allergies No known active allergies Medications SYMBICORT [...] Comments Blood Pressure 135/72 09/24/2020 10:30 AM FIRE CREW SPECIALIST Pulse 75 09/24/2020 10:30 AM FIRE CREW SPECIALIST Temperature 36.7 C (98.1 F) 09/24/2020 6:34 AM FIRE CREW SPECIALIST Respiratory Rate 18 09/24/2020 10:30 AM FIRE CREW SPECIALIST Oxygen Saturation 99% 09/24/2020 10:30 AM FIRE CREW SPECIALIST Inhaled Oxygen Concentration - - Weight 51.3 kg (113 lb) 09/24/2020 6:34 AM FIRE CREW SPECIALIST Height 162.6 cm (5' 4) 09/24/2020 6:34 AM FIRE CREW SPECIALIST Body Mass Index 19.4 09/24/2020 6:34 AM FIRE CREW SPECIALIST Plan of Treatment Health Maintenance Due Date Last Done Comments Hepatitis C 1968 DTaP, Tdap and Td Vaccines ( 1 - Tdap) 1967 Zoster Vaccines (2 of 3) 04/04/2013 02/07/2013 Annual Medicare Wellness Visit 2013 Dexa Scan (General) 2013 Pneumococcal Vaccine: 50+ Ye ars (2 of 2 - PCV20 or PCV21) 10/24/2016 10/24/2015 RSV Immunization or 60+ Years (1 - 1-dose 75+ series) 2023 COVID-19 Vaccine ( - 2024-2 6 season) 2025 Influenza Adult (#1) 2025 Hepatitis A Vaccines Aged Out No long er eligible based on patient's age to complete this topic Meningococcal B Vaccine Aged Out No l onger eligible based on patient's age to complete this topic Meningococcal Vaccine Aged Out No husam tanner eligible based on patient's age to complete this topic RSV Immunizations Under 20 Months Aged Out No longer eligible based on patient's age to complete this topic Insurance AETNA MEDICARE Care Teams Membership Sales Manager Relationship Specialty Start Date End Date Bella Swain MD [address] [place] [address] [place] [phone] PCP - General INTERNAL MEDICINE 09/18/20
== END 2025-08-14 15:57 | disposition home or self-care (01) ==
LOC: CHSLAB 15:59
PROVIDERS: PCP Internal Medicine; Visit Provider Internal Medicine
DX: R06.00 Dyspnea, unspecified (principal); R05.3 Chronic cough; J18.8 Other pneumonia, unspecified organism
CPT/HCPCS: 36415; 71046; 80053; 83880; 85027

== ENCOUNTER 2025-08-15 10:30 | Outpatient (CLI) | payer MEDICARE, SELFPAY ==
--- OUTSIDE RECORDS SUMMARY | 2013-03-02 08:25 | XMS_ITS | Continuity of Care Document ---
Author Organization [facility] Address [address] [place] [address] Phone Care Team Providers Care Deicer Inspector Electric Name Role Phone Unavailable Unavailable Unavailable Procedures Procedure Date MRI BRAIN WO/W CONTRAST Advance Directives Directive Yes / No Effective Date File Name No Information Encounters Encounter Description Practice Location Reason(s) For Visit Diagnoses Date Provider Providers Copied on Encounter [facility], [address] [place], [place], [id number], [place] tel:[phone] [facility] No Information 3 No Information [facility], [address] [place], [place], [id number], [place] tel:[phone] [facility] No Information 3 No Information Referring Provider: Benoit Agosto, [address], [address]. tel:[phone] Family History Family Member Type Diagnosis Age At Onset No Information Payers Payer name Insurance type Covered republican ID Authoriza tion(s) [employer] PRIME STANDAR D AND SELECT [id number] Social History Type Description Quantity Date Captured Comments Sex Female Smoking Status No Information Chief Complaint And Reason For Visit No Information Reason For Referral Reason For Referral No Information History Of Present Illness Encounter Date Complaint History Of Prese nt Illness No Information Functional Status Date Functional Assessmen t No Information Instructions Date Instruction Additional Infor mation No Information Assessments Type Assessment Date No Information Patient Care Teams Name Effective Dates (start - stop) Status Members No Information
--- NOTE | ~2025-08-15 | CT_ITS ---
EXAMINATION: CT diagnostic chest wo con, 08/15/2025 10:30 CDT HISTORY: DYSPNEA / COUGH COMPARISON: Comparison 04/03/2025. TECHNIQUE: CT scan of the chest was performed without IV contrast. One or more of the following dose reduction techniques were used: automated exposure control, adjustment of the mA and/or kV according to patient size, use of iterative reconstruction technique. FINDINGS: No significant coronary calcification is present ([id number]) LUNGS: No tracheomalacia. There is basilar bronchiectasis with areas of mucous plugging noted in the left lower lobe. Moderate emphysematous changes. Moderate pulmonary fibrotic changes. Early honeycombing is noted. There are no areas of bullous formation. Apical scarring bilaterally. Large left lower lobe infiltrate is noted with heterogeneity of the parenchyma. There are scattered micronodules many of which demonstrate a tree-in-bud distribution and may be infectious. Scattered small infiltrates are noted also in the right lower lobe. Minimal infiltrates and bronchiectasis noted also in the lingula and the right middle lobe. HEART AND PERICARDIUM: Within normal limits. AORTA: Normal caliber aorta. ADENOPATHY/MEDIASTINUM: None. LIMITED VIEWS OF THE ABDOMEN: Within normal limits. OSSEOUS STRUCTURES: No sclerotic or lytic lesions. No acute rib fractures. OVERLYING SOFT TISSUES: Unremarkable. THYROID: The thyroid is unremarkable. IMPRESSION: Severe bronchopneumonia superimposed on chronic lung disease. There is heterogeneity noted of the parenchyma in the left lower lobe, early abscess formation is not excluded. Follow-up is recommended to assess Reviewed, dictated and finalized at location P. IMPRESSION: Severe bronchopneumonia superimposed on chronic lung disease. There is heteroge neity noted of the parenchyma in the left lower lobe, early abscess formation i s not excluded. Follow-up is recommended to assess
--- OUTSIDE RECORDS SUMMARY | 2025-08-15 11:32 | XMS_ITS | Clinical Summary ---
Author Organization [facility] Address [address] [place] [address] Phone Care Team Providers Care Stars Coordinator Name Role Phone Bella Swain MD Primary Care Provider [phone] Social History Tobacco Use Types Packs/Day Years [...] 1998 Influenza Vaccine (#1) 2025 Care Teams Stars Coordinator Relationship Specialty Start Date End Date Bella Swain MD [address] [place] [address] PCP - General Internal Medicine 12/04/20
--- OUTSIDE RECORDS SUMMARY | 2025-08-15 11:32 | XMS_ITS | Clinical Summary ---
Author Organization [facility] Address [address] [place] [address] Care Team Providers Care Manager Quality Improvement Name Role Phone Bella Swain MD Primary Care Provider [phone] Allergies No known active allergies Medications SYMBICORT [...] Comments Blood Pressure 135/72 09/24/2020 10:30 AM SCALLOP CUTTER Pulse 75 09/24/2020 10:30 AM SCALLOP CUTTER Temperature 36.7 C (98.1 F) 09/24/2020 6:34 AM SCALLOP CUTTER Respiratory Rate 18 09/24/2020 10:30 AM SCALLOP CUTTER Oxygen Saturation 99% 09/24/2020 10:30 AM SCALLOP CUTTER Inhaled Oxygen Concentration - - Weight 51.3 kg (113 lb) 09/24/2020 6:34 AM SCALLOP CUTTER Height 162.6 cm (5' 4) 09/24/2020 6:34 AM SCALLOP CUTTER Body Mass Index 19.4 09/24/2020 6:34 AM SCALLOP CUTTER Plan of Treatment Health Maintenance Due Date [...] this topic Insurance AETNA MEDICARE Care Teams Manager Quality Improvement Relationship Specialty Start Date End Date Bella Swain MD [address] [place] [address] [place] [phone] PCP - General INTERNAL MEDICINE 09/18/20
== END 2025-08-15 10:31 | disposition home or self-care (01) ==
PROVIDERS: PCP Internal Medicine; Visit Provider Internal Medicine
DX: R06.00 Dyspnea, unspecified (principal); R05.9 Cough, unspecified; J18.0 Bronchopneumonia, unspecified organism; J98.4 Other disorders of lung
CPT/HCPCS: 71250

== ENCOUNTER 2025-10-03 12:44 | Outpatient (CLI) | payer MEDICARE, SELFPAY ==
--- NOTE | ~2025-10-03 | CT_ITS ---
CT diagnostic chest wo con HISTORY:J18.9 - Pneumonia, unspecified organism COMPARISON: 08/15/2025. TECHNIQUE: Axial images of the chest were obtained without infusion of intravenous contrast. Dose optimization technique was utilized. FINDINGS: The examination demonstrates decrease in left lower lobe consolidation. Basilar bronchiectasis is again noted. There is decrease in mucous plugging within the left lower lobe. Pulmonary fibrotic changes bilaterally unchanged. There are no pleural effusions or pneumothorax. Cardiac size and mediastinal configuration are normal in appearance. No hilar or mediastinal lymphadenopathy is seen. The thoracic aorta is normal in caliber. Osseous structures are intact. IMPRESSION: Improving left lower lobe pneumonia. Follow-up to resolution is recommended. All CT scans at this facility are performed using low dose modulation techniques as appropriate to perform exam including the following: automated exposure control; use of iterative reconstruction technique; adjustment of the mA and/or kV according to patient size (this includes techniques or standardized protocols for targeted exams where dose is matched to indication/reason for exam). Reviewed, dictated and finalized at location S. RVISOR HAIRSPRING FABRICATION IMPRESSION: Improving left lower lobe pneumonia. Follow-up to resolution is recommended. All CT scans at this facility are performed using low dose modulation techniqu es as appropriate to perform exam including the following: automated exposure c ontrol; use of iterative reconstruction technique; adjustment of the mA and/or kV according to patient size (this includes techniques or standardized protocol s for targeted exams where dose is matched to indication/reason for exam).
--- OUTSIDE RECORDS SUMMARY | 2025-10-03 13:34 | XMS_ITS | Clinical Summary ---
Author Organization [facility] Address [address], [place] [address] Phone Care Team Providers Care Targeting Acquisition Officer Name Role Phone Bella Swain MD Primary Care Provider [phone] Social History Tobacco Use Types Packs/Day Years [...] 1998 Influenza Vaccine (#1) 2025 Care Teams Targeting Acquisition Officer Relationship Specialty Start Date End Date Bella Swain MD [address] [place] [phone] PCP - General Internal Medicine 12/04/20
== END 2025-10-03 12:45 | disposition home or self-care (01) ==
PROVIDERS: PCP Internal Medicine; Visit Provider Nurse Practitioner Family
DX: J18.9 Pneumonia, unspecified organism (principal)
CPT/HCPCS: 71250

== ENCOUNTER 2025-10-05 11:39 | Outpatient (CLI) | payer MEDICARE, SELFPAY ==
--- NOTE | ~2025-10-05 | MR_ITS ---
EXAMINATION: MR lumbar spine wo con DATE: 10/05/2025 12:35 INDICATION: Low back pain. TECHNIQUE: Magnetic resonance imaging (MRI) of the lumbar spine was performed without intravenous contrast. Sequences included sagittal T2-weighted FSE, sagittal T2-weighted FS FSE, sagittal T1-weighted FSE, and axial T2-weighted FSE. COMPARISON: None FINDINGS: There is 25 degrees levoscoliosis of lumbar spine. Vertebral body heights are normal. There is severely decreased disc height from L1-L2 through L5-S1. The distal spinal cord signal intensity is normal. The conus medullaris is at L1. The following disc levels are specifically discussed: L1-L2: The disc is bulging and has an annular fissure. There is severe bilateral facet joint osteoarthritis. There is mild right and moderate left neural foraminal stenosis. There is mild central canal stenosis. L2-L3: The disc is bulging and has an annular fissure. There is severe bilateral facet joint osteoarthritis. There is mild bilateral neural foraminal stenosis. There is mild central canal stenosis. L3-L4: The disc is bulging and has an annular fissure. There is severe right and moderate left facet joint osteoarthritis. There is moderate right and mild left neural foraminal stenosis. There is mild central canal stenosis. L4-L5: The disc is bulging and has an annular fissure. There is moderate bilateral facet joint osteoarthritis. There is moderate right and mild left neural foraminal stenosis. There is mild central canal stenosis. L5-S1: The disc is bulging and has an annular fissure. There is severe bilateral facet joint osteoarthritis. There is moderate bilateral neural foraminal stenosis. There is mild central canal stenosis. IMPRESSION: 1. Severe lumbar spondylosis. 2. Lumbar levoscoliosis. Reviewed, dictated and finalized at location E. AL SALES REPRESENTATIVE
== END 2025-10-05 11:40 | disposition home or self-care (01) ==
LOC: CHSIMG 11:40
PROVIDERS: PCP Internal Medicine; Visit Provider Internal Medicine
DX: M54.50 Low back pain, unspecified (principal); M47.896 Other spondylosis, lumbar region; M41.86 Other forms of scoliosis, lumbar region
CPT/HCPCS: 72148